=== PATIENT | male | born 1970 ===

== ENCOUNTER 2020-10-11 06:11 | Outpatient (REF) | payer OTHER, SELFPAY ==
[2020-10-11 07:45] LABS: MANUAL DIFF FLAG NO
[2020-10-11 07:52] LABS: Basophils Percent Auto 0.6 % (0-2); Eosinophils Absolute Auto 0.1 X10*3/uL (0.0-0.4); Eosinophils Percent Auto 2.5 % (0-4); Hematocrit 47.2 % (42-52); Hemoglobin 15.6 g/dl (14.0-18.0); Imm Gran Abs Auto 0.02 X10*3/uL (0.00-0.03); Imm Gran Pct Auto 0.4 % (0.0-0.4); Lymphocytes Percent Auto 38.6 % (20-40); Mean Corpuscular HGB Conc 33.1 g/dl (31.0-36.0); Mean Corpuscular Hemoglobin 30.4 pg (27.0-33.0); Mean Corpuscular Volume 91.8 fL (80-98); Mean Platelet Volume 10.4 fL (9.4-12.4); Monocytes Absolute Auto 0.5 X10*3/uL (0.1-1.2); Monocytes Percent Auto 8.8 % (2-11); Neutrophils Absolute Auto 2.5 X10*3/uL (2.0-8.3); Neutrophils Percent Auto 49.1 % (45-73); Platelet Count 214 X10*3/uL (160-400); Red Blood Count 5.14 X10*6/uL (4.60-5.80); Red Cell Distribution Width 12.9 % (11.0-16.0); White Blood Count 5.1 X10*3/uL (4.8-10.8)
[2020-10-11 08:22] LABS: Alanine Aminotransferase 39 U/L (0-40); Albumin Level 4.2 g/dL (3.5-5.0); Alkaline Phosphatase 62 U/L (39-117); Anion Gap 12 (12-20); Aspartate Amino Transferase 19 U/L (5-37); Bilirubin Total 0.7 mg/dL (0.0-1.0); Blood Urea Nitrogen 13 mg/dL (9-16); Calcium 8.8 mg/dL (8.4-10.2); Carbon Dioxide 25 mmol/L (22-29); Chloride 104 mmol/L (96-108); Cholesterol 179 mg/dL; Estimated Glomerular Filt Rate > 60; Glucose Fasting 243 mg/dL (60-99); HDL Cholesterol 42 mg/dL; LDL Cholesterol Calculated 113 mg/dl; Potassium 4.4 mmol/l (3.3-5.1); Sodium 137 mmol/L (135-145); Total Protein 6.5 g/dL (6.5-8.0); Triglycerides 120 mg/dL
[2020-10-11 08:42] LABS: T4 Thyroxine 5.1 ug/dL (4.5-12.0); Thyroid Stimulating Hormone 2.15 uIU/mL (0.32-4.0)
[2020-10-11 09:11] LABS: Vitamin B12 470 pg/mL (200-900)
[2020-10-11 10:10] LABS: Creatinine Urine 182.97 mg/dL; Microalbum/Creatinine Ratio Ur 11.4 ug/mg cr
== END 2020-10-11 06:12 | disposition home or self-care (01) ==
LOC: HO.LAB 06:11
PROVIDERS: Visit Provider Internal Medicine
DX: E11.65 Type 2 diabetes mellitus with hyperglycemia (principal); Z00.00 Encounter for general adult medical examination without abnormal findings; I10 Essential (primary) hypertension; E66.9 Obesity, unspecified; N52.9 Male erectile dysfunction, unspecified; F41.9 Anxiety disorder, unspecified; J45.909 Unspecified asthma, uncomplicated; E78.00 Pure hypercholesterolemia, unspecified
CPT/HCPCS: 36415; 80053; 80061; 82043; 82607; 82746; 84436; 84443; 85025

== ENCOUNTER 2020-11-02 15:49 | Outpatient (REF) | payer OTHER, SELFPAY ==
--- NOTE | 2020-11-02 15:57 | US_ITS ---
EXAMINATION: US RETROPERITONEAL LIMITED (RENAL ONLY) CLINICAL INFORMATION: Renal stone. COMPARISON: Previous CT of the abdomen and pelvis September 2018 TECHNIQUE: Grayscale and color imaging of the kidneys FINDINGS: RIGHT KIDNEY: 13.7 x 6 x 7.1 cm (SAG x AP x TRV). The kidney is normal in size, contour, and echogenicity. Renal cortical thickness is normal. No calculi or focal parenchymal lesions. No hydronephrosis. LEFT KIDNEY: 14.2 x 7.6 x 7.1 cm (SAG x AP x TRV). The kidney is normal in size, contour, and echogenicity. Renal cortical thickness is normal. No calculi or focal parenchymal lesions. No hydronephrosis. The liver is echogenic. US/US renal BI IMPRESSION: No stone seen by ultrasound.
== END 2020-11-02 15:50 | disposition home or self-care (01) ==
LOC: HO.US 15:49
PROVIDERS: PCP Internal Medicine; Visit Provider Internal Medicine
DX: N20.0 Calculus of kidney (principal)
CPT/HCPCS: 76775

== ENCOUNTER → 2020-12-13 07:44 | Outpatient (BNVA) | payer OTHER, SELFPAY | PROVIDERS: PCP Internal Medicine; Visit Provider Internal Medicine Endocrinology, Diabetes & Metabolism | DX: E11.65 Type 2 diabetes mellitus with hyperglycemia (principal); E11.42 Type 2 diabetes mellitus with diabetic polyneuropathy; E11.21 Type 2 diabetes mellitus with diabetic nephropathy; Z79.4 Long term (current) use of insulin; I10 Essential (primary) hypertension; E55.9 Vitamin D deficiency, unspecified; E78.5 Hyperlipidemia, unspecified; E66.9 Obesity, unspecified | CPT/HCPCS: 82947 ==

== ENCOUNTER 2021-02-16 10:45 | Emergency (ER) | payer OTHER, SELFPAY ==
--- NOTE | ~2021-02-16 | XR_ITS ---
EXAMINATION: XR CHEST CLINICAL INFORMATION: Lightheadedness. COMPARISON: None TECHNIQUE: Frontal view of the chest was obtained. FINDINGS: No significant abnormality is noted involving the heart, lungs, mediastinum, bony thorax or soft tissues. XR/XR chest 1V IMPRESSION: Unremarkable chest exam.
[2021-02-16 10:49] VITALS: BP 142/84; BP 149/93; PULSE 86; PULSE 92; RESP 16; TEMP 37.2; O2SAT 96; O2SAT 98; BMI 34.2
--- NOTE | 2021-02-16 11:31 | ECG_ITS ---
Test Reason : DIZZINESS Blood Pressure : / mmHG Vent. Rate : 075 BPM Atrial Rate : 075 BPM P-R Int : 154 ms QRS Dur : 102 ms QT Int : 394 ms P-R-T Axes : 006 -42 022 degrees QTc Int : 439 ms Normal sinus rhythm Left axis deviation Abnormal ECG When compared with ECG of 13-OCT-2017 19:12, No significant change was found Referred By: Mario Ruff Electronically Signed By:SHIRA STRICKLAND
--- NOTE | 2021-02-16 11:32 | ED.DIZZY ---
HPI - Dizziness General Chief Complaint: Dizziness Stated Complaint: lightheaded Time Seen by Provider: 02/16/21 11:30 Source: patient Mode of arrival: ambulatory Limitations: no limitations History of Present Illness HPI Narrative: 50 years old male came for evaluation lightheadedness. This is a 50-year-old male who walked into the emergency department yesterday patient had felt palpitation, lightheadedness no chest pain or shortness of breath, today patient has no palpitation feeling but lightheadedness still persist patient describes the lightheadedness as feeling spacey and woozy. Patient declined chest pain, shortness of breath, palpitation today, nausea, vomiting, or diarrhea. Related Data Home Medications Medication Instructions Recorded Confirmed albuterol sulfate 2.5 mg INHALATION Q4-6H PRN 10/14/20 12/13/20 aspirin 81 mg tablet,delayed 81 mg PO DAILY 10/14/20 12/13/20 release tadalafil 10 mg tablet 10 mg PO DAILY PRN 10/14/20 12/13/20 Previous Rx's Medication Instructions Recorded simvastatin 20 mg tablet 20 mg PO QPM #90 tab 10/14/20 cholecalciferol (vitamin D3) 25 25 mcg PO DAILY 30 Days #30 cap 12/13/20 mcg (1,000 unit) capsule dulaglutide 1.5 mg/0.5 mL 1.5 mg SUBCUT QWEEK 90 Days #6.5 ml 12/13/20 subcutaneous pen injector empagliflozin 12.5 mg-metformin ER 1 tab PO BID 90 Days #180 ea 12/13/20 1,000 mg tablet,extended rel 24 hr flash glucose sensor #7 ea 12/13/20 glipizide 10 mg tablet 10 mg PO DAILY 90 Days #90 tab 12/13/20 citalopram 40 mg tablet 40 mg PO DAILY #90 tab 01/24/21 fluticasone 250 mcg-salmeterol 50 1 inh INHALATION Q12H #60 ea 01/24/21 mcg/dose blistr powdr for inhalation lisinopril 5 mg tablet 5 mg PO DAILY #90 tab 01/24/21 albuterol sulfate 90 mcg/actuation 1 - 2 puff PO Q4H PRN #8.5 g 02/11/21 aerosol inhaler Allergies Allergy/AdvReac Type Severity Reaction Status Date / Time bee pollen [BEE STINGS] Allergy Unknown SWELLING Verified 02/16/21 12:09 WASPS Allergy Unknown SWELLING Uncoded 08/12/20 15:42 Review of Systems Review of Systems: All other systems are reviewed and are negative Constitutional: Reports as per HPI and Reports no additional constitutional complaints Eyes: Reports as per HPI and Reports no additional eye complaints Reports system reviewed and no additional complaints, except as documented Cardiovascular: Reports as per HPI and Reports no additional cardiovascular complaints Respiratory: Reports as per HPI and Reports no additional respiratory complaints Gastrointestinal: Reports as per HPI and Reports no additional gastrointestinal complaints Genitourinary: Reports no additional female genitourinary complaints Musculoskeletal: Reports no additional musculoskeletal complaints Skin/Breast: Reports system reviewed and no additional complaints, except as docu Psychiatric: Reports no additional psychiatric complaints Endocrine: Reports no additional endocrine complaints Hematologic/Lymphatic: Reports no additional hematologic/lymphatic complaints Allergic/Immunologic: Reports no additional allergic/immunologic complaints Reports system reviewed and no additional complaints, except as documented and Reports Abnormal speech present [facility] Past Medical History Medical History Anxiety and depression Asthma Carpal tunnel syndrome Diabetic nephropathy associated with type 2 diabetes mellitus Diabetic polyneuropathy associated with type 2 diabetes mellitus Diverticulitis Dyslipidemia Erectile dysfunction Fatty liver GERD (gastroesophageal reflux disease) Hypercholesterolemia Hypertension Irritable bowel syndrome Obesity (BMI 30-39.9) Renal calculi Type 2 diabetes mellitus with hyperglycemia Vitamin D deficiency Surgical History History of arthroscopy of left knee History of breast mammoplasty History of cataract surgery History of vasectomy Family History Family History Father Skin cancer Mother Breast cancer Mouth cancer Hypertension Maternal Aunt Lung cancer Brother In good health Son In good health Son In good health Daughter In good health Social History Social History Smoking Status: Never smoker Smoked in Last 30 Days: No Use of substances other than those prescribed or required for medical reasons: No Advance Directives: No Advance Directives Information Provided: No Physical Exam Vital Signs: Vital Signs: Last Vital Signs Temp 99.0 F 02/16/21 10:49 Pulse 87 02/16/21 12:05 Resp 18 02/16/21 12:08 BP 131/80 02/16/21 12:05 Pulse Ox 96 02/16/21 10:49 Body Mass Index 34.2 Vital signs have been reviewed as appeared to be correct. Blood pressure slightly elevated. Heart rate normal. Respiration rate normal. Temperature normal. Oxygen saturation normal. Appearance: Alert. Oriented X3. No acute distress. Head: Normal external exam. Normocephalic. Atraumatic. No Spangler signs noted. No raccoon eyes noted Eyes: PERRLA. EOMI. Conjunctiva and sclera normal. Eyelids normal. ENT: TM's Normal. Pharynx normal. Uvula midline. Moist mucous membranes. No trismus noted. No drooling noted. No muffled voice noted. Neck: Normal inspection. Neck supple. FROM. No adenopathy. Thyroid Normal. No meningeal signs. No neck mass noted. CVS: Normal heart rate and rhythm. Heart sound normal. No murmurs noted. Pulses normal throughout. Respiratory: No respiratory distress. Painless inspiration. Breath sounds normal. No wheezes/rales/rhonchi noted. Chest nontender. No accessory muscle usage noted or decreased air movement noted. Abdomen: Soft and nontender. Bowel sounds normal in all 4 quadrants. No distention noted. No organomegaly noted. No visible injury noted. Back: No CVA tenderness. Full range of motion noted. Skin: Skin warm and dry. Normal skin color. Normal skin turgor. No rashes/lesions/lacerations noted. Extremities: No lower extremity edema. Extremities exhibit normal range of motion. Extremities nontender. Neuro: Oriented X 3. No motor deficit. No sensory deficit. Reflexes normal. Course Course Course Narrative: Assessment and plan. 50 years old male otherwise healthy presented with yesterday feeling palpitation, today feels generalized weakness, patient has unremarkable labs, unremarkable EKG, unremarkable chest x-ray and COVID testing is negative. Patient already feels better after received IV hydration in the emergency department. Will discharge the patient to follow-up with PCP. [facility] - Dizziness Lab Data Attestation: I reviewed the patient's lab results. Result diagrams: 02/16/21 11:57 02/16/21 11:57 Labs: Lab Results 02/16/21 02/16/21 02/16/21 Range/Units 11:57 11:57 11:57 WBC 8.7 (4.8-10.8) X10*3/uL RBC 5.54 (4.60-5.80) X10*6/uL Hgb 17.0 (14.0-18.0) g/dl Hct 49.9 (42-52) % MCV 90.1 (80-98) fL MCH 30.7 (27.0-33.0) pg MCHC 34.1 (31.0-36.0) g/dl RDW 13.4 (11.0-16.0) % Plt Count 225 (160-400) X10*3/uL MPV 9.7 (9.4-12.4) fL Immature Gran % (Auto) 0.2 (0.0-0.4) % Neut % (Auto) 64.1 (45-73) % Lymph % (Auto) 29.3 (20-40) % Franklin % (Auto) 5.5 (2-11) % Eos % (Auto) 0.6 (0-4) % Baso % (Auto) 0.3 (0-2) % Lymph # (Auto) 2.6 (1.2-4.9) X10*3/uL Franklin # (Auto) 0.5 (0.1-1.2) X10*3/uL Eos # (Auto) 0.1 (0.0-0.4) X10*3/uL Baso # (Auto) 0.0 (0.0-0.2) X10*3/uL Abs Immat Gran (auto) 0.02 (0.00-0.03) X10*3/uL Absolute Neuts (auto) 5.6 (2.0-8.3) X10*3/uL Absolute Nucleated RBC 0.000 (0.0-0.012) X10*3/uL Nucleated RBC % (auto) 0.0 (0.0-0.2) /100WBC Sodium 139 (135-145) mmol/L Potassium 4.2 (3.3-5.1) mmol/L Chloride 103 (96-108) mmol/L Carbon Dioxide 24 (22-29) mmol/L Anion Gap 16 (12-20) BUN 13 (9-16) mg/dL Creatinine 0.90 (0.5-1.4) mg/dL Estim Creat Clear Calc 124.7 Estimated GFR > 60 Random Glucose 125 H (60-115) mg/dL Calcium 9.4 D (8.4-10.2) mg/dL Total Bilirubin 0.5 (0.0-1.0) mg/dL Direct Bilirubin 0.2 (0.0-0.5) mg/dL AST 26 (5-37) U/L ALT 34 (0-40) U/L Alkaline Phosphatase 62 (39-117) U/L Troponin I High Sens < 3.5 (<3.5-35.0) ng/L B-Natriuretic Peptide < 10 (<100) pg/mL Total Protein 7.2 (6.5-8.0) g/dL Albumin 4.8 (3.5-5.0) g/dL Lipase 35 (8-78) U/L Urine Color Urine Appearance Urine pH (5.0-8.0) Ur Specific Brunswick (1.005-1.025) Urine Protein (NEG-TRACE) MG/DL Urine Glucose (UA) (NEG) MG/DL Urine Ketones (NEG) MG/DL Urine Blood (NEG) Urine Nitrite (NEG) Ur Leukocyte Esterase (NEG) Urine RBC (0) /HPF Urine WBC (0-4) /HPF Ur Squamous Epith Cells /LPF Urine Bacteria /LPF COVID-19 (AARON) (Negative) COVID-19 Clin Com 02/16/21 02/16/21 Range/Units 11:57 11:57 WBC (4.8-10.8) X10*3/uL RBC (4.60-5.80) X10*6/uL Hgb (14.0-18.0) g/dl Hct (42-52) % MCV (80-98) fL MCH (27.0-33.0) pg MCHC (31.0-36.0) g/dl RDW (11.0-16.0) % Plt Count (160-400) X10*3/uL MPV (9.4-12.4) fL Immature Gran % (Auto) (0.0-0.4) % Neut % (Auto) (45-73) % Lymph % (Auto) (20-40) % Franklin % (Auto) (2-11) % Eos % (Auto) (0-4) % Baso % (Auto) (0-2) % Lymph # (Auto) (1.2-4.9) X10*3/uL Franklin # (Auto) (0.1-1.2) X10*3/uL Eos # (Auto) (0.0-0.4) X10*3/uL Baso # (Auto) (0.0-0.2) X10*3/uL Abs Immat Gran (auto) (0.00-0.03) X10*3/uL Absolute Neuts (auto) (2.0-8.3) X10*3/uL Absolute Nucleated RBC (0.0-0.012) X10*3/uL Nucleated RBC % (auto) (0.0-0.2) /100WBC Sodium (135-145) mmol/L Potassium (3.3-5.1) mmol/L Chloride (96-108) mmol/L Carbon Dioxide (22-29) mmol/L Anion Gap (12-20) BUN (9-16) mg/dL Creatinine (0.5-1.4) mg/dL Estim Creat Clear Calc Estimated GFR Random Glucose (60-115) mg/dL Calcium (8.4-10.2) mg/dL Total Bilirubin (0.0-1.0) mg/dL Direct Bilirubin (0.0-0.5) mg/dL AST (5-37) U/L ALT (0-40) U/L Alkaline Phosphatase (39-117) U/L Troponin I High Sens (<3.5-35.0) ng/L B-Natriuretic Peptide (<100) pg/mL Total Protein (6.5-8.0) g/dL Albumin (3.5-5.0) g/dL Lipase (8-78) U/L Urine Color YELLOW Urine Appearance CLEAR Urine pH 6.0 (5.0-8.0) Ur Specific Brunswick 1.010 (1.005-1.025) Urine Protein NEG (NEG-TRACE) MG/DL Urine Glucose (UA) >=1000 H (NEG) MG/DL Urine Ketones NEG (NEG) MG/DL Urine Blood NEG (NEG) Urine Nitrite NEG (NEG) Ur Leukocyte Esterase NEG (NEG) Urine RBC 0 (0) /HPF Urine WBC 0 (0-4) /HPF Ur Squamous Epith Cells NONE /LPF Urine Bacteria NONE /LPF COVID-19 ([facility]ARON) Negative (Negative) COVID-19 Clin Com See Note Imaging Data Chest x-ray: Radiologist's impression: Unremarkable chest x-ray. ECG Data Interpretation: Normal sinus rhythm at 75 beats per minute, left axis deviation, normal intervals, nonspecific T-wave flattening at lead III, and V6. Discharge Plan Discharge Clinical Impression: Heart palpitations Patient Disposition: Home, Self-Care Instructions: Heart Palpitations (ED) Prescriptions: No Action lisinopril 5 mg tablet 5 mg PO DAILY Qty: 90 RF: 0 citalopram 40 mg tablet 40 mg PO DAILY Qty: 90 RF: 1 fluticasone propion-salmeterol [Wixela Inhub] 250-50 mcg/dose blister with device 1 inh inhalation Q12H Qty: 60 RF: 11 albuterol sulfate 90 mcg/actuation HFA aerosol inhaler 1 - 2 puff PO Q4H PRN (Reason: for muscle spasm) Qty: 8.5 RF: 0 aspirin [Adult Aspirin Regimen] 81 mg tablet,delayed release (DR/EC) 81 mg PO DAILY RF: 0 albuterol sulfate 2.5 mg /3 mL (0.083 %) solution for nebulization 2.5 mg inhalation Q4-6H PRNRF: 0 tadalafil 10 mg tablet 10 mg PO DAILY PRNRF: 0 simvastatin 20 mg tablet 20 mg PO QPM Qty: 90 RF: 1 Trulicity 1.5 mg/0.5 mL pen injector 1.5 mg subcut QWEEK 90 Days Qty: 6.5 RF: 1 cholecalciferol (vitamin D3) 25 mcg (1,000 unit) capsule 25 mcg PO DAILY 30 Days Qty: 30 RF: 4 Synjardy XR 12.5-1,000 mg tablet, IR - ER, biphasic 24hr 1 tab PO BID 90 Days Qty: 180 RF: 1 (DME) flash glucose sensor Kit See Rx Instructions ea topical Q2W Qty: 7 RF: 1 glipizide 10 mg tablet 10 mg PO DAILY 90 Days Qty: 90 RF: 1 Referrals: Po,Beatris Lange MD [Primary Care Provider] - 2 days
[2021-02-16 12:01] VITALS: BP 114/60; PULSE 72
[2021-02-16 12:04] VITALS: BP 124/72; PULSE 74
[2021-02-16 12:04] LABS: MANUAL DIFF FLAG NO
[2021-02-16 12:05] VITALS: BP 131/80; PULSE 87
[2021-02-16 12:05] LABS: Basophils Percent Auto 0.3 % (0-2); Eosinophils Absolute Auto 0.1 X10*3/uL (0.0-0.4); Eosinophils Percent Auto 0.6 % (0-4); Hematocrit 49.9 % (42-52); Imm Gran Abs Auto 0.02 X10*3/uL (0.00-0.03); Imm Gran Pct Auto 0.2 % (0.0-0.4); Lymphocytes Absolute Auto 2.6 X10*3/uL (1.2-4.9); Lymphocytes Percent Auto 29.3 % (20-40); Mean Corpuscular HGB Conc 34.1 g/dl (31.0-36.0); Mean Corpuscular Hemoglobin 30.7 pg (27.0-33.0); Mean Corpuscular Volume 90.1 fL (80-98); Mean Platelet Volume 9.7 fL (9.4-12.4); Monocytes Absolute Auto 0.5 X10*3/uL (0.1-1.2); Monocytes Percent Auto 5.5 % (2-11); Neutrophils Absolute Auto 5.6 X10*3/uL (2.0-8.3); Neutrophils Percent Auto 64.1 % (45-73); Platelet Count 225 X10*3/uL (160-400); Red Blood Count 5.54 X10*6/uL (4.60-5.80); Red Cell Distribution Width 13.4 % (11.0-16.0); White Blood Count 8.7 X10*3/uL (4.8-10.8)
[2021-02-16 12:08] VITALS: RESP 18
[2021-02-16 12:09] LABS: Glucose Urine UA >=1000 MG/DL (NEG); Leukocyte Esterase Urine NEG (NEG); Nitrite Urine NEG (NEG); Urine Blood NEG (NEG); Urine Ketones NEG (NEG); Urine Protein NEG (NEG-TRACE)
[2021-02-16] MEDS: 0.9 % Sodium Chloride 1,000 ML 999 ML IVCONT (12:09)
[2021-02-16 12:11] LABS: Appearance Urine CLEAR; Color Urine YELLOW
[2021-02-16 12:18] LABS: RBC Urine 0 /HPF (0); WBC Urine 0 /HPF (0-4)
[2021-02-16 12:28] LABS: COVID-19 Test Negative (Negative)
[2021-02-16 12:35] LABS: Alanine Aminotransferase 34 U/L (0-40); Albumin Level 4.8 g/dL (3.5-5.0); Alkaline Phosphatase 62 U/L (39-117); Anion Gap 16 (12-20); Aspartate Amino Transferase 26 U/L (5-37); Bilirubin Direct 0.2 mg/dL (0.0-0.5); Bilirubin Total 0.5 mg/dL (0.0-1.0); Blood Urea Nitrogen 13 mg/dL (9-16); Calcium 9.4 mg/dL (8.4-10.2); Carbon Dioxide 24 mmol/L (22-29); Chloride 103 mmol/L (96-108); Creatinine Clr Calc Pharmacy 124.7; Estimated Glomerular Filt Rate > 60; Glucose Random 125 mg/dL (60-115); Lipase 35 U/L (8-78); Potassium 4.2 mmol/L (3.3-5.1); Sodium 139 mmol/L (135-145); Total Protein 7.2 g/dL (6.5-8.0)
[2021-02-16 12:37] LABS: B Type Natriuretic Peptide < 10 pg/mL (<100); Troponin-I High Sensitivity < 3.5 ng/L (<3.5-35.0)
== END 2021-02-16 13:29 | disposition home or self-care (01) ==
PROVIDERS: Emergency Provider Emergency Medicine; PCP Internal Medicine
DX: R00.2 Palpitations (principal); Z20.822 Contact with and (suspected) exposure to COVID-19; I10 Essential (primary) hypertension; E11.9 Type 2 diabetes mellitus without complications; E78.5 Hyperlipidemia, unspecified; K76.0 Fatty (change of) liver, not elsewhere classified; Z79.82 Long term (current) use of aspirin; Z79.899 Other long term (current) drug therapy
CPT/HCPCS: 36415; 71045; 80048; 80076; 81001; 83690; 83880; 84484; 85025; 87635; 93005; 96360; 99284

== ENCOUNTER → 2021-02-22 13:55 | Outpatient (BNVA) | payer OTHER, SELFPAY | PROVIDERS: PCP Internal Medicine; Visit Provider Urology ==

== ENCOUNTER → 2021-03-07 09:52 | Outpatient (BNVA) | payer OTHER, SELFPAY | PROVIDERS: PCP Internal Medicine; Visit Provider Physician Assistant | DX: S61.213A Laceration without foreign body of left middle finger without damage to nail, initial encounter (principal); S60.413A Abrasion of left middle finger, initial encounter; X58.XXXA Exposure to other specified factors, initial encounter | CPT/HCPCS: 73140; 90715; 99203 ==

== ENCOUNTER → 2021-03-09 10:56 | Outpatient (BNVA) | payer OTHER, SELFPAY | PROVIDERS: PCP Internal Medicine; Visit Provider Physician Assistant | DX: S61.213A Laceration without foreign body of left middle finger without damage to nail, initial encounter (principal); X58.XXXA Exposure to other specified factors, initial encounter | CPT/HCPCS: 99213 ==

== ENCOUNTER → 2021-03-15 13:06 | Outpatient (BNVA) | payer OTHER, SELFPAY | PROVIDERS: PCP Internal Medicine; Visit Provider Physician Assistant | DX: S61.213A Laceration without foreign body of left middle finger without damage to nail, initial encounter (principal); X58.XXXA Exposure to other specified factors, initial encounter | CPT/HCPCS: 99212; 99213 ==

== ENCOUNTER → 2021-04-11 07:32 | Outpatient (BNVA) | payer OTHER, SELFPAY | PROVIDERS: PCP Internal Medicine; Visit Provider Internal Medicine Endocrinology, Diabetes & Metabolism | DX: E11.65 Type 2 diabetes mellitus with hyperglycemia (principal); E11.42 Type 2 diabetes mellitus with diabetic polyneuropathy; E11.21 Type 2 diabetes mellitus with diabetic nephropathy; I10 Essential (primary) hypertension; E55.9 Vitamin D deficiency, unspecified; E78.5 Hyperlipidemia, unspecified; E66.9 Obesity, unspecified; Z79.4 Long term (current) use of insulin | CPT/HCPCS: 82947 ==

== ENCOUNTER 2021-09-21 11:55 | Outpatient (REF) | payer OTHER, SELFPAY ==
--- NOTE | ~2021-09-21 | XR_ITS ---
EXAMINATION: XR HIP, RIGHT CLINICAL INFORMATION: Pain in right hip COMPARISON: None TECHNIQUE: Two views of the right hip. FINDINGS: There is no fracture or dislocation. The femoral head articulates appropriately with its acetabulum. Severe joint space narrowing with near [id number] appearance superiorly. Subchondral sclerosis noted with osteophyte formation. The visualized right hemipelvis is intact. XR/XR hip RT min 2V IMPRESSION: Moderate to severe degenerative change of the right hip.
[2021-09-21 13:27] LABS: Creatinine Urine 60.54 mg/dL; Microalbumin Urine < 5.0 mg/L
== END 2021-09-21 11:56 | disposition home or self-care (01) ==
LOC: HO.LAB 11:55
PROVIDERS: Internal Medicine; Visit Provider Internal Medicine
DX: M25.551 Pain in right hip (principal); E11.65 Type 2 diabetes mellitus with hyperglycemia; R10.31 Right lower quadrant pain; E78.00 Pure hypercholesterolemia, unspecified; I10 Essential (primary) hypertension; Z79.4 Long term (current) use of insulin
CPT/HCPCS: 73502; 82043

== ENCOUNTER 2021-10-31 17:00 | Outpatient (RCR) | payer OTHER, SELFPAY ==
--- NOTE | 2021-10-06 09:58 | MHC.PT.EP ---
[facility] [place] [facility] [place] [facility] [place] Office [address] Tatianna Marcus [address] [phone] F: [phone] F: [phone] F: [phone] F: [phone] Physical Therapy Plan of Care Date of Evaluation: Date of Surgery: Diagnosis: Unilateral OA, R hip Pain in R hip Assessment: Pt is a 50yo M who presents to PT with R hip pain. He reports the pain was initially intermittent but now it is constant and radiates to his groin. He presents today with current impairments in pain, decreased hip ROM, decreased hip/glute strength, tight hamstrings, tight hip flexors, impaired body mechanics, and gait. His signs and symptoms may be consistent with R hip OA. He is limited functionally by bending, squatting, prolonged standing, walking, and marching. He is an excellent candidate for skilled PT services to address current impairments in order to facilitate return to OF. He will be seen for PT 2x/week for 4 weeks and will be reassessed at that time. 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 Manual therapy to restore motion and function. Therapeutic exercise to improve strength and flexibility. Neuromuscular re-education for posture and balance. Therapeutic activities to return to functional activities of daily living. Electronically signed by: Kely Araujo, PT, DPT Please sign and return to therapist. Thank you for your referral.
--- NOTE | 2021-11-21 17:23 | MHC.PT.DC ---
[facility] [place] [facility] [place] Office [place] Office [address] Tatianna Marcus [address] [phone] F: [phone] F: [phone] F: [phone] F: [phone] Physical Therapy Discharge Report Diagnosis: Unilateral OA, R hip Pain in R hip Date of Surgery: Date of Evaluation: 10/05/21 Date of Discharge: 11/21/21 Treatments to Date: 5 Cancellations to Date: 2 No Shows to Date: 1 Discharge Status: Improved Function Independent with HEP Discharge Summary: Pt was seen for skilled PT services from 10/05/21-10/31/21. Pt was making good progress towards his goals. He had a no-show and cancellation for his last 2 scheduled appointments. This PT called pt on 11/21/21 at 5:18pm and pt reported he was feeling better and did not want to schedule any additional PT visits at this time. Pt is being D/C from skilled PT services at this time. Pt current level of function unknown. Electronically signed by: Kely Araujo, PT, DPT Please sign and return to therapist. Thank you for your referral.
== END 2021-11-21 17:23 | disposition home or self-care (01) ==
LOC: HO.PT 17:00
PROVIDERS: PCP Internal Medicine; Visit Provider Internal Medicine
DX: M16.11 Unilateral primary osteoarthritis, right hip (principal); M25.551 Pain in right hip
CPT/HCPCS: 97110; 97140; 97161; 97530

== ENCOUNTER 2022-04-14 08:31 | Outpatient (REF) | payer BC, SELFPAY ==
[2022-04-14 08:52] LABS: MANUAL DIFF FLAG NO
[2022-04-14 09:13] LABS: Basophils Percent Auto 0.4 % (0-2); Eosinophils Absolute Auto 0.2 X10*3/uL (0.0-0.4); Eosinophils Percent Auto 3.3 % (0-4); Hematocrit 44.4 % (42.0-52.0); Imm Gran Abs Auto 0.01 X10*3/uL (0.00-0.03); Imm Gran Pct Auto 0.2 % (0.0-0.4); Lymphocytes Absolute Auto 1.9 X10*3/uL (1.2-4.9); Lymphocytes Percent Auto 37.5 % (20-40); Mean Corpuscular HGB Conc 33.8 g/dl (31.0-36.0); Mean Corpuscular Volume 91.7 fL (80.0-98.0); Monocytes Absolute Auto 0.4 X10*3/uL (0.1-1.2); Monocytes Percent Auto 8.2 % (2-11); Neutrophils Absolute Auto 2.6 x10*3/uL (2.0-8.3); Neutrophils Percent Auto 50.4 % (45-73); Platelet Count 174 X10*3/uL (160-400); Red Blood Count 4.84 X10*6/uL (4.60-5.80); Red Cell Distribution Width 13.2 % (11.0-16.0); White Blood Count 5.1 X10*3/uL (4.8-10.8)
[2022-04-14 09:44] LABS: Alanine Aminotransferase 72 U/L (0-40); Albumin Level 4.3 g/dL (3.5-5.0); Alkaline Phosphatase 61 U/L (39-117); Anion Gap 8 (12-20); Aspartate Amino Transferase 25 U/L (5-37); Bilirubin Total 0.7 mg/dL (0.0-1.0); Blood Urea Nitrogen 14 mg/dL (9-16); Calcium 9.5 mg/dL (8.4-10.2); Carbon Dioxide 32 mmol/L (22-29); Chloride 103 mmol/L (96-108); Cholesterol 155 mg/dL; Estimated Glomerular Filt Rate > 60; Glucose Random 201 mg/dL (60-115); HDL Cholesterol 44 mg/dL; LDL Cholesterol Calculated 89 mg/dl; Potassium 4.4 mmol/L (3.3-5.1); Sodium 139 mmol/L (135-145); Total Protein 6.6 g/dL (6.5-8.0); Triglycerides 113 mg/dL
[2022-04-14 09:59] LABS: Free T4 (Free Thyroxine) 0.81 ng/dL (0.71-1.85); Prostate Specific Antigen Scr 0.31 ng/mL (<0.05-4.0); Thyroid Stimulating Hormone 1.67 uIU/mL (0.32-4.0)
[2022-04-14 10:05] LABS: Folate 11.9 ng/mL (> or = 4.0); Vitamin B12 428 pg/mL (200-900)
== END 2022-04-14 08:32 | disposition home or self-care (01) ==
LOC: HO.LAB 08:31
PROVIDERS: Internal Medicine; PCP Internal Medicine; Visit Provider Internal Medicine
DX: Z12.5 Encounter for screening for malignant neoplasm of prostate (principal); E11.65 Type 2 diabetes mellitus with hyperglycemia; E78.00 Pure hypercholesterolemia, unspecified; I10 Essential (primary) hypertension; Z79.4 Long term (current) use of insulin
CPT/HCPCS: 36415; 80053; 80061; 82607; 82746; 84153; 84439; 84443; 85025

== ENCOUNTER 2022-07-24 12:18 | Outpatient (REF) | payer BC, SELFPAY ==
--- NOTE | ~2022-07-24 | XR_ITS ---
EXAMINATION: XR PELVIS CLINICAL INFORMATION: Pain in unspecified hip COMPARISON: 09/21/2021 TECHNIQUE: AP view of the pelvis. FINDINGS: Severe right, moderate to severe left joint space narrowing of the hips with a near [id number] appearance of the right hip. There is right greater than left acetabular sclerosis. There is osseous hypertrophy of the femoral head-neck junctions bilaterally, right greater than left. No hip or pelvic fracture seen. Degenerative changes of the lower lumbar spine are partially imaged. Pelvic phleboliths. XR/XR pelvis 1-2V IMPRESSION: Severe right, moderate to severe left joint space narrowing of the hips.
== END 2022-07-24 12:19 | disposition home or self-care (01) ==
LOC: HO.HOSX 12:18
PROVIDERS: Visit Provider Orthopaedic Surgery
DX: M25.551 Pain in right hip (principal); M25.552 Pain in left hip
CPT/HCPCS: 72170

== ENCOUNTER 2022-09-26 05:58 | Outpatient (REF) | payer BC, SELFPAY ==
--- NOTE | ~2022-09-26 | FL_ITS ---
EXAMINATION: XR FLUOROSCOPY WITH IMAGES CLINICAL INFORMATION: M16.11 - Unilateral primary osteoarthritis, right hip COMPARISON: Radiographs right hip 09/21/2021 TECHNIQUE: Fluoroscopy performed by Dr. Francisco Ortez. Fluoroscopy time: 0.5 minutes. Cumulative Dose: 16.1 mGy. DAP: 4.06 Gy-cm2. Images: 1. FINDINGS: There is a spinal needle with tip at the superior lateral aspect right hip. Intracapsular contrast is demonstrated. Again, there are degenerative changes with superior hip joint narrowing and mild subchondral sclerosis. FL/FL guidance in treatment room IMPRESSION: Fluoroscopy for pain management procedures.
== END 2022-09-26 05:59 | disposition home or self-care (01) ==
LOC: CF 05:58
PROVIDERS: Visit Provider Anesthesiology
DX: M16.11 Unilateral primary osteoarthritis, right hip (principal)
CPT/HCPCS: 20610; J3300

== ENCOUNTER 2022-11-09 10:33 | Outpatient (REF) | payer BC, SELFPAY | END 2022-11-09 10:34 | disposition home or self-care (01) | LOC: HO.SH 10:33 | PROVIDERS: Visit Provider Internal Medicine | DX: Z01.118 Encounter for examination of ears and hearing with other abnormal findings (principal); H90.3 Sensorineural hearing loss, bilateral | CPT/HCPCS: 92557 ==

== ENCOUNTER → 2022-11-24 12:32 | Outpatient (BNVA) | payer BC, SELFPAY | PROVIDERS: PCP Internal Medicine; Visit Provider Urology | DX: E11.69 Type 2 diabetes mellitus with other specified complication (principal) ==

== ENCOUNTER → 2023-01-01 14:25 | Outpatient (BNVA) | payer BC, SELFPAY | PROVIDERS: PCP Internal Medicine; Visit Provider Orthopaedic Surgery | DX: Z13.89 Encounter for screening for other disorder (principal) ==

== ENCOUNTER 2023-01-05 09:07 | Day surgery (SDC) | payer BC, SELFPAY ==
[2023-01-05 09:38] VITALS: BMI 36.9
[2023-01-05 09:46] VITALS: BP 126/82; PULSE 72; RESP 16; TEMP 36.1; O2SAT 96
--- NOTE | 2023-01-05 09:52 | P.CONAN_ITS ---
HPI - Anesthesia Eval Consult details Narrative: 52 yo male patient for colonoscopy [facility] Active Problems Active Problems: All Active Problems (Updated 11/24/22 @ 15:22 by Gigi Gregory MD) Erectile dysfunction associated with type 2 diabetes mellitus (Acute) Guaiac + stool (Acute) GERD (gastroesophageal reflux disease) (Acute) Hearing deficit (Acute) Annual physical exam (Acute) Colon cancer screening (Acute) Arthritis of left hip (Acute) Osteoarthritis of right hip (Acute) Gastroenteritis (Acute) Degenerative joint disease of right hip (Acute) Right groin pain (Acute) Right hip pain (Acute) Hearing impairment (Acute) Generalized anxiety disorder (Acute) Annual physical exam (Acute) Colon cancer screening (Acute) Diabetic polyneuropathy associated with type 2 diabetes mellitus (Acute) Diabetic nephropathy associated with type 2 diabetes mellitus (Acute) Renal calculi (Acute) Right groin pain (Acute) Carpal tunnel syndrome (Acute) Erectile dysfunction (Acute) Obesity (BMI 30-39.9) (Acute) Hypertension (Acute) Asthma (Acute) Hypercholesterolemia (Acute) Vitamin D deficiency (Acute) Type 2 diabetes mellitus with hyperglycemia (Acute) Denies RENÉ Past Medical History Medical History Asthma Carpal tunnel syndrome Diabetic nephropathy associated with type 2 diabetes mellitus Diabetic polyneuropathy associated with type 2 diabetes mellitus Diverticulitis Erectile dysfunction Fatty liver GERD (gastroesophageal reflux disease) Hypercholesterolemia Hypertension Irritable bowel syndrome Obesity (BMI 30-39.9) Renal calculi Type 2 diabetes mellitus with hyperglycemia Vitamin D deficiency Family History Family History Father Skin cancer Mother Breast cancer Mouth cancer Hypertension Maternal Aunt Lung cancer Brother In good health Son In good health Son In good health Daughter In good health Maternal Grandfather Myocardial infarct Family history of problems with anesthesia: No Surgical History Surgical History History of arthroscopy of left knee History of breast mammoplasty History of cataract surgery History of vasectomy History of Problems with Anesthesia: No Social History Social History Housing: House Alcohol intake: current Alcohol intake frequency: a few times a month Patient Tobacco Use Status: Current someday Tobacco user Tobacco use type: Cigarette Years Smoked: stopped 2013 e-Cigarette/Vaping Use: Never Used Second Hand Smoke Exposure: Yes Use of substances other than those prescribed or required for medical reasons: No Are you DNR?: No Advance Directives: No Advance Directives Information Provided: Yes service: No Current occupational status: employed 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 Current occupational exposures/hazards: No Cognitive needs: No Hearing needs: No Vision needs: No Meds Allergies Allergy/AdvReac Type Severity Reaction Status Date / Time bee pollen [BEE STINGS] Allergy Unknown SWELLING Verified 11/24/22 12:33 WASPS Allergy Unknown SWELLING Uncoded 11/24/22 12:33 Active Medications: Current Medications Lactated Ringer's (Lr) 1,000 mls @ 50 mls/hr IVCONT .Q20H MADELEINE Home Medications Medication Instructions Recorded Confirmed Last Taken Type albuterol sulfate 2.5 mg/3 mL 2.5 mg inhalation Q4-6H PRN 10/14/20 01/05/23 Unknown History (0.083 %) solution for nebulization Shortness Of Breath Exam Exam Date and Time: January 05, 2023 0952 Height,Weight and Vital Signs: Height 5 ft 11 in Weight 120.202 kg Vital Signs Temp Pulse Resp BP Pulse Ox O2 Del Method 01/05/23 09:46 97.0 F 72 16 126/82 96 Room Air Pertinent Lab Results Pertinent Lab Results: Lab Results 01/05/23 Range/Units 10:02 POC Glucose 214 H (60-115) mg/dL Airway Mallampati Class: II TM Dist: >3cm Neck ROM: Full Loose/Missing/Broken Teeth: No Heart: RRR Lungs: CTAB Assessment and Plan Assessment Anesthesia Assessment: Anesthesia Plan Discussed and Chart Reviewed Final Anesthetic Review Family History of Problems with Anesthesia: No History of Problems with Anesthesia: No NPO: Yes ASA Class: II Final Preanesthetic Review: No Changes in Pt Med Stat, Meds/Allgs Chart Reviewed, Consent Obtained/Reviewed and Anes Risks/Benef Reviewed Patient Risk: Intermediate Procedure Risk: Low Assessment/Block/Sedation in SS: Assess/Block/Sedation-SS Anesthetic Plan Anesthetic Plan: MAC: Disposition: Standard PACU
[2023-01-05] MEDS: Lactated Ringers 1,000 ML 50 ML IVCONT (10:04)
[2023-01-05 10:16] LABS: Glucose, Whole Blood 214 mg/dL (60-115)
--- NOTE | 2023-01-05 10:24 | MHC.SHP ---
Pre-Procedural Eval Section A Date of Service: 01/05/23 The patient is an INPATIENT: No Changes since office visit: No Cold of Flu in the past 2 weeks, No New Medical Problems, No Changes in Medication and No Patient answered all questions The History & Physical has been completed within 30 days and I have reviewed it.: Yes Section B Chief Complaint: Encounter for screening for malignant neoplasm of Allergies: Allergies Allergy/AdvReac Type Severity Reaction Status Date / Time bee pollen [BEE STINGS] Allergy Unknown SWELLING Verified 11/24/22 12:33 WASPS Allergy Unknown SWELLING Uncoded 11/24/22 12:33 Plan I have reviewed the history and physical and performed a pertinent physical examination on my patient. No changes have occurred unless specified. Time Spent With Patient Time: Total time managing care of this patient today ____ minutes.
--- NOTE | 2023-01-05 11:05 | PM.OP ---
Brief Operative Note Date of Service: 01/05/23 Pre-op diagnosis: screening Post-op diagnosis: same Procedure: colonoscopy Surgeon: Harris Patel Anesthesia: MAC Was an Tobacco Blender used for this Procedure?: No Estimated blood loss (mL): 0 Pathology: other Condition: stable Disposition: PACU
[2023-01-05 11:06] VITALS: BP 108/57; PULSE 71; RESP 12; TEMP 36.1; O2SAT 98
[2023-01-05 11:21] VITALS: BP 118/62; PULSE 90; RESP 16; O2SAT 96
[2023-01-05 11:36] VITALS: BP 122/87; PULSE 73; RESP 18; TEMP 36.7; O2SAT 96
--- NOTE | 2023-01-05 11:41 | OP_ITS ---
SURGEON: Harris Patel MD INDICATIONS: Colon cancer screening. PREOPERATIVE DIAGNOSIS: POSTOPERATIVE DIAGNOSIS: PROCEDURE PERFORMED: Date: 01/05/23. A history and physical was performed. The risks and benefits of the procedure were explained to the patient. Informed consent was obtained. The patient was placed in the left lateral decubitus position. A digital rectal exam was performed and was found to be normal. The Olympus pediatric video colonoscope was introduced into the rectum and advanced to the cecum without difficulty. The cecum was identified by transillumination, palpation, and identification of ileocecal valve. Examination was performed and the scope was removed. He tolerated the procedure well and was returned to the recovery room in stable condition. ESTIMATED BLOOD LOSS: COMPLICATIONS: ANESTHESIA: Monitored anesthesia care. ASSISTANTS: SPECIMENS: PROCEDURE: Colonoscopy to the terminal ileum with snare polypectomy and biopsy. FINDINGS: The terminal ileum was examined and appeared normal. The visualized colonic mucosa was normal. Multiple polyps were present. The largest measured 10 mm and 2 of these were removed at 70 and 40 cm with a snare. Other polyps less than 10 mm were removed in the right colon at 30 cm and in the rectum. The right colon polyp was removed with biopsy forceps. No other polyps were identified. There was mild sigmoid diverticulosis. Retroflexed examination showed internal hemorrhoids. IMPRESSION: Colon polyps. RECOMMENDATION: Follow up the biopsy results. MD SUJATHA Hastings/CHELSY / [id number] MTDD
== END 2023-01-05 12:05 | disposition home or self-care (01) ==
PROVIDERS: PCP Internal Medicine; Visit Provider Internal Medicine Gastroenterology
PROC: 0DJD8ZZ Inspection of Lower Intestinal Tract, Via Natural or Artificial Opening Endoscopic (ICD-10-PCS; CPT 45378; principal; 2023-01-05 10:20)
DX: Z12.11 Encounter for screening for malignant neoplasm of colon (principal); D12.2 Benign neoplasm of ascending colon; D12.4 Benign neoplasm of descending colon; D12.5 Benign neoplasm of sigmoid colon; D12.8 Benign neoplasm of rectum; K57.30 Diverticulosis of large intestine without perforation or abscess without bleeding; K64.8 Other hemorrhoids; K76.0 Fatty (change of) liver, not elsewhere classified; K21.9 Gastro-esophageal reflux disease without esophagitis; I10 Essential (primary) hypertension; E78.00 Pure hypercholesterolemia, unspecified; J45.909 Unspecified asthma, uncomplicated; N20.0 Calculus of kidney; E55.9 Vitamin D deficiency, unspecified; E11.21 Type 2 diabetes mellitus with diabetic nephropathy; E11.40 Type 2 diabetes mellitus with diabetic neuropathy, unspecified; Z79.85 Long-term (current) use of injectable non-insulin antidiabetic drugs; Z79.899 Other long term (current) drug therapy; F17.210 Nicotine dependence, cigarettes, uncomplicated
CPT/HCPCS: 45385; 45380; 82947; 88305

== ENCOUNTER 2023-01-05 18:04 | Emergency (ER) | payer BC, SELFPAY ==
--- NOTE | ~2023-01-05 | CT_ITS ---
EXAMINATION: CT ABDOMEN AND PELVIS WITHOUT AND WITH CONTRAST [GI bleeding study] CLINICAL INFORMATION: Rectal bleeding status post colonoscopy. COMPARISON: None. TECHNIQUE: Multidetector volumetric imaging was performed from the superior aspect of the liver through the pubic symphysis before and after the administration of 85 mL Omnipaque 350 intravenous contrast. Postcontrast images acquired during the portal venous and equilibrium phases. Coronal and sagittal reformats created on an workstation are reviewed. This CT examination was performed using dose optimization techniques as appropriate, variously including the following: *Automated exposure control *Adjustment of mA and/or kV according to patient size (this includes techniques or standardized protocols for targeted exams where dose is matched to indication/reason for exam; i.e. extremities or head) *Use of iterative reconstruction technique FINDINGS: LUNG BASES: The visualized lung bases are unremarkable. LIVER, GALLBLADDER, AND BILIARY TREE: The liver is normal in size, shape, and attenuation. No focal hepatic lesion or biliary ductal dilatation is present. The gallbladder is unremarkable with no evidence of radiopaque gallstones, gallbladder wall thickening, or obvious pericholecystic inflammatory changes. PANCREAS: Unremarkable. SPLEEN: Unremarkable. ADRENAL GLANDS: Unremarkable. KIDNEYS AND URETERS: The kidneys are normal in size, shape, and attenuation. Punctate nonobstructive calculus, right mid kidney. No hydronephrosis or hydroureter. No perinephric stranding. BLADDER: Unremarkable. GASTROINTESTINAL TRACT: No source of active gastrointestinal bleeding is identified. Left colonic diverticulosis. No evidence of diverticulitis. Normal appendix. Stomach and small bowel unremarkable. ABDOMINAL WALL: No significant hernia is appreciated. LYMPH NODES: Normal. VASCULAR: Unremarkable. PELVIC VISCERA: Unremarkable. OSSEOUS STRUCTURES: No acute or suspicious osseous abnormalities. CT/CT gi bleed abd pel wo/w IVcon IMPRESSION: * No source of active gastrointestinal bleeding is identified. * Left colonic diverticulosis without evidence of diverticulitis. * Punctate nonobstructive calculus, right mid kidney.
--- NOTE | ~2023-01-05 | XR_ITS ---
EXAMINATION: CHEST 2 VIEWS CLINICAL INFORMATION: ? gi bleed s/p colonoscopy . COMPARISON: 02/16/2021. TECHNIQUE: PA and lateral views of the chest obtained. FINDINGS: The lungs are well expanded. No focal infiltrate, effusion, edema, or pneumothorax. Cardiac and mediastinal silhouettes are within normal limits for technique. No acute bony abnormality seen XR/XR chest 2V IMPRESSION: No evidence of acute disease
[2023-01-05 19:30] VITALS: BP 114/91; PULSE 85; RESP 20; TEMP 36.1; O2SAT 98; BMI 36.9
--- NOTE | 2023-01-05 19:30 | ECG_ITS ---
Test Reason : GI BLEED Blood Pressure : / mmHG Vent. Rate : 083 BPM Atrial Rate : 083 BPM P-R Int : 150 ms QRS Dur : 096 ms QT Int : 364 ms P-R-T Axes : 030 -32 033 degrees QTc Int : 427 ms Normal sinus rhythm Left axis deviation Abnormal ECG When compared to the previous EKG of No significant changes seen Referred By: Laverne Mcneill Electronically Signed By:JEFF MAGALLANES MD
--- NOTE | 2023-01-05 19:30 | ED.GIBLEED ---
HPI - GI Bleed General Chief complaint: GI Bleed <LYNN Rosa - Last Filed: 01/05/23 19:33> Stated complaint: Still bleeding after colonoscopy this am <LYNN Rosa - Last Filed: 01/05/23 19:33> Time Seen by Provider: 01/06/23 01:45 <LYNN Rosa - Last Filed: 01/05/23 19:33> Source: patient <Tevin Soria MD - Last Filed: 01/06/23 02:27> Mode of arrival: ambulatory <Tevin Soria MD - Last Filed: 01/06/23 02:27> Limitations: no limitations <Tevin Soria MD - Last Filed: 01/06/23 02:27> History of Present Illness HPI Narrative: 52-year-old male presents with acute lower GI bleed. Patient had colonoscopy earlier today with biopsies. Family 6 biopsies were taken. He got home he started to have bright red blood per rectum. He denied any abdominal pain, lightheadedness, palpitations. The bleeding continued for approximately 2 hours when he was referred to the emergency department for evaluation. Patient reports bleeding, ?like a stuffed pig. ? Patient denies any abdominal pain, fevers, chills. He is currently not on any blood thinning medications. He did have a bagel prior to arrival. <Tevin Soria MD - Last Filed: 01/06/23 02:27> Related Data Home medications: Home Medications Medication Instructions Recorded Confirmed albuterol sulfate 2.5 mg/3 mL 2.5 mg inhalation Q4-6H PRN 10/14/20 01/05/23 (0.083 %) solution for nebulization Shortness Of Breath Previous Rx's Medication Instructions Recorded cholecalciferol (vitamin D3) 25 25 mcg PO DAILY 30 days #30 caps 12/13/20 mcg (1,000 unit) capsule flash glucose sensor #7 ea 12/13/20 empagliflozin 12.5 mg-metformin ER 1 tab PO BID 90 days #180 ea 04/07/22 1,000 mg tablet,extended rel 24 hr (Synjardy XR) epinephrine 0.3 mg/0.3 mL 0.3 mg (0.3 mL) IM Q4H PRN 05/15/22 injection, auto-injector (EpiPen anaphylaxis #2 ea 2-Joni) lisinopril 5 mg tablet 5 mg PO DAILY 90 days #90 tabs 07/18/22 sildenafil 100 mg tablet 100 mg PO ONCE PRN sexual activity 08/22/22 30 days #30 tabs alprazolam 0.25 mg tablet 0.25 mg PO BID PRN anxiety #14 tabs 09/11/22 flash glucose scanning reader #1 ea 09/11/22 (FreeStyle Javed 2 [place]) flash glucose sensor (FreeStyle #6 kits 09/11/22 Javed 2 Sensor kit) albuterol sulfate 90 mcg/actuation 1 - 2 puff PO Q4H PRN bronchospasm 10/03/22 aerosol inhaler #8.5 grams simvastatin 20 mg tablet 20 mg PO QPM #90 tabs 11/02/22 citalopram 40 mg tablet 40 mg PO DAILY #90 tabs 11/09/22 glipizide 5 mg tablet 5 mg PO BID 30 days #60 tabs 11/16/22 tadalafil 10 mg tablet 10 mg PO DAILY sexual activity 90 11/24/22 days #90 tabs dulaglutide 1.5 mg/0.5 mL 1.5 mg (0.5 mL) subcut QWEEK 90 12/20/22 subcutaneous pen injector days #6.5 mL <LYNN Rosa - Last Filed: 01/05/23 19:33> Allergies/Adverse reactions: Allergies Allergy/AdvReac Type Severity Reaction Status Date / Time bee pollen [BEE STINGS] Allergy Unknown SWELLING Verified 01/05/23 19:35 WASPS Allergy Unknown SWELLING Uncoded 11/24/22 12:33 <LYNN Rosa - Last Filed: 01/05/23 19:33> Review of Systems Review of Systems: CONSTITUTIONAL: Denies weight loss, fever and chills. HEENT: Denies changes in vision and hearing. RESPIRATORY: Denies SOB and cough. CV: Denies palpitations no CP. GI: Denies abdominal pain, nausea, vomiting and diarrhea. : Denies dysuria and urinary frequency. MSK: Denies myalgia and joint pain. SKIN: Denies rash and pruritus. NEUROLOGICAL: Denies headache and syncope. PSYCHIATRIC: Denies recent changes in mood. Denies anxiety and depression. All other ROS are negative unless in HPI <Tevin Soria MD - Last Filed: 01/06/23 02:27> [facility] Past Medical History Medical History: Medical History Asthma Carpal tunnel syndrome Diabetic nephropathy associated with type 2 diabetes mellitus Diabetic polyneuropathy associated with type 2 diabetes mellitus Diverticulitis Erectile dysfunction Fatty liver GERD (gastroesophageal reflux disease) Hypercholesterolemia Hypertension Irritable bowel syndrome Obesity (BMI 30-39.9) Renal calculi Type 2 diabetes mellitus with hyperglycemia Vitamin D deficiency <LYNN Rosa - Last Filed: 01/05/23 19:33> Surgical History: Surgical History History of arthroscopy of left knee History of breast mammoplasty History of cataract surgery History of vasectomy <LYNN Rosa - Last Filed: 01/05/23 19:33> Family History Family History: Family History Father Skin cancer Mother Breast cancer Mouth cancer Hypertension Maternal Aunt Lung cancer Brother In good health Son In good health Son In good health Daughter In good health Maternal Grandfather Myocardial infarct <LYNN Rosa - Last Filed: 01/05/23 19:33> Social History Social History: Social History Housing: House Alcohol intake: current Alcohol intake frequency: a few times a month Patient Tobacco Use Status: Current someday Tobacco user Tobacco use type: Cigarette Years Smoked: stopped 2013 e-Cigarette/Vaping Use: Never Used Second Hand Smoke Exposure: Yes Advance Directives: No Advance Directives Information Provided: No service: No Current occupational status: employed Current occupation: [employer] Current occupational exposures/hazards: No Cognitive needs: No Hearing needs: No Vision needs: No <LYNN Rosa - Last Filed: 01/05/23 19:33> Physical Exam Vital Signs: Vital Signs: Last Vital Signs Temp 98.2 F 01/06/23 02:16 Pulse 78 01/06/23 02:16 Resp 16 01/06/23 02:16 BP 119/68 01/06/23 02:16 Pulse Ox 99 01/06/23 02:16 O2 Del Method 01/06/23 02:16 BMI result Body Mass Index 36.9 <LYNN Rosa - Last Filed: 01/05/23 19:33> Vital Signs: Last Vital Signs Temp 98.2 F 01/06/23 02:16 Pulse 78 01/06/23 02:16 Resp 16 01/06/23 02:16 BP 119/68 01/06/23 02:16 Pulse Ox 99 01/06/23 02:16 O2 Del Method 01/06/23 02:16 BMI result Body Mass Index 36.9 GEN: Well developed, no acute distress, alert, oriented HEENT: Normocephalic, atraumatic, normal external ears, nose appears normal, no oropharyngeal edema or exudates Eyes: Normal to appearance Neck: Supple, no lymphadenopathy Respiratory: Talks in complete sentences, no respiratory distress, clear to auscultation bilaterally Cardiovascular: Regular rate and rhythm, no murmurs rubs or gallops Abdomen: Soft, nontender, nondistended, no guarding, no rebound Back: No CVA tenderness Extremities: No clubbing cyanosis or edema Neurologic: No focal neurologic deficits, cranial nerves 2-12 intact, strength is 5/5 bilaterally, gait normal Skin: No rash <Tevin Soria MD - Last Filed: 01/06/23 02:27> Course Course Course Narrative: RME-19:30PM - 52yoM who had a colonoscopy today by Dr. Patel who is presenting with complaints of GI bleed that started shortly after his colonoscopy. Reports he has had 8-10 dark red blood stools. Reports associated nausea. Reports he had multiple polyps removed. He called Dr. Patel's office and they told him to come here for further evaluation treatment. Denies any dizziness, headaches, chest pain or shortness of breath, abdominal pain or any other symptoms complaints or concerns at this time. Denies being on blood thinners. Plan: Will obtain labs, EKG, chest x-ray, COVID/RSV/flu swab, stool occult and GI bleed CT scan protocol. Patient will be sent back to the waiting room to be evaluated in the ED. <LYNN Rosa - Last Filed: 01/05/23 19:33> Reevaluation(s) Reevaluation #1: The workup is complete. Patient's CBC is normal. CT scan did not reveal any evidence of perforation. He is asymptomatic for potential anemia. He has had no active bleeding since in the emergency department. Patient will be discharged at this time. I recommended clear liquid diet over the next 12-24 hours. For worsening bleeding, lightheadedness, palpitations or other symptoms, patient is recommended to return back to the emergency department <Tevin Soria MD - Last Filed: 01/06/23 02:27> Time: 02:25 <Tevin Soria MD - Last Filed: 01/06/23 02:27> Medications Administered Discontinued Medications Generic Name Dose Route Start Last Admin Trade Name Freq PRN Reason Stop Dose Admin Iohexol 85 ml 01/06/23 01:25 01/06/23 01:26 Iohexol 350 Mg/Ml 100 Ml Infus..Btl IV 01/06/23 01:26 85 ml ONCE ONE Administration <LYNN Rosa - Last Filed: 01/05/23 19:33> Medications Administered Discontinued Medications Generic Name Dose Route Start Last Admin Trade Name Freq PRN Reason Stop Dose Admin Iohexol 85 ml 01/06/23 01:25 01/06/23 01:26 Iohexol 350 Mg/Ml 100 Ml Infus..Btl IV 01/06/23 01:26 85 ml ONCE ONE Administration <Tevin Soria MD - Last Filed: 01/06/23 02:27> Medical Decision Making Medical Decision Making [facility] Narrative: Patient presents with lower GI bleed from colonoscopy. His examination was benign without rebound or guarding. Doubt perforation. Will check CBC to make sure patient is not anemic. Will follow up regarding symptoms to see if he becomes symptomatic anemia. <Tevin Soria MD - Last Filed: 01/06/23 02:27> Differential Diagnosis Differential Diagnoses: The differential diagnosis associated with the presentation includes (Lower GI bleed, hemorrhoid, diverticular bleeding, biopsy site bleeding, anemia) <Tevin Soria MD - Last Filed: 01/06/23 02:27> Admission/Observation Consideration of admission/observation: Escalation of care including admission/observation considered <Tevin Soria MD - Last Filed: 01/06/23 02:27> Lab Data [facility] Lab Attestation statement: I reviewed the patient's lab results. <Tevin Soria MD - Last Filed: 01/06/23 02:27> Result Diagrams: 01/05/23 19:57 01/05/23 19:57 <LYNN Rosa - Last Filed: 01/05/23 19:33> Labs: Lab Results 01/05/23 01/05/23 01/05/23 Range/Units 19:57 19:57 19:57 WBC 6.1 (4.8-10.8) X10*3/uL RBC 4.88 (4.60-5.80) X10*6/uL Hgb 15.0 (14.0-18.0) g/dl Hct 44.0 (42.0-52.0) % MCV 90.2 (80.0-98.0) fL MCH 30.7 (27.0-33.0) pg MCHC 34.1 (31.0-36.0) g/dl RDW 13.0 (11.0-16.0) % Plt Count 223 D (160-400) X10*3/uL MPV 9.8 (9.4-12.4) fL Immature Gran % (Auto) 0.2 (0.0-0.4) % Neut % (Auto) 58.7 (45-73) % Lymph % (Auto) 33.6 (20-40) % [place] % (Auto) 5.8 (2-11) % Eos % (Auto) 1.2 (0-4) % Baso % (Auto) 0.5 (0-2) % Lymph # (Auto) 2.0 (1.2-4.9) X10*3/uL [place] # (Auto) 0.4 (0.1-1.2) X10*3/uL Eos # (Auto) 0.1 (0.0-0.4) X10*3/uL Baso # (Auto) 0.0 (0.0-0.2) X10*3/uL Abs Immat Gran (auto) 0.01 (0.00-0.03) X10*3/uL Absolute Neuts (auto) 3.6 (2.0-8.3) x10*3/uL Absolute Nucleated RBC 0.000 (0.0-0.012) X10*3/uL Nucleated RBC % (auto) 0.0 (0.0-0.2) /100WBC PT 11.3 (10.0-13.1) SEC INR 1.0 (0.9-1.1) Sodium 136 (135-145) mmol/L Potassium 4.2 (3.3-5.1) mmol/L Chloride 102 (96-108) mmol/L Carbon Dioxide 24 (22-29) mmol/L Anion Gap 14 (12-20) BUN 9 (9-16) mg/dL Creatinine 1.02 (0.5-1.4) mg/dL Estim Creat Clear Calc 111.7 Estimated GFR > 60 POC Glucose (60-115) mg/dL Random Glucose 415 H* (60-115) mg/dL Calcium 9.0 (8.4-10.2) mg/dL Magnesium 2.0 (1.6-2.6) mg/dL Total Bilirubin 0.7 (0.0-1.0) mg/dL AST 22 (5-37) U/L ALT 43 H (0-40) U/L Alkaline Phosphatase 57 (39-117) U/L Total Protein 6.0 L (6.5-8.0) g/dL Albumin 4.0 (3.5-5.0) g/dL Influenza Type A (PCR) (Negative) Influenza Type B (PCR) (Negative) RSV RNA Qual (PCR) (Negative) SARS-CoV-2 RNA (RT-PCR) (Negative) Blood Type Antibody Screen 01/05/23 01/05/23 01/06/23 Range/Units 19:57 20:03 01:40 WBC (4.8-10.8) X10*3/uL RBC (4.60-5.80) X10*6/uL Hgb (14.0-18.0) g/dl Hct (42.0-52.0) % MCV (80.0-98.0) fL MCH (27.0-33.0) pg MCHC (31.0-36.0) g/dl RDW (11.0-16.0) % Plt Count (160-400) X10*3/uL MPV (9.4-12.4) fL Immature Gran % (Auto) (0.0-0.4) % Neut % (Auto) (45-73) % Lymph % (Auto) (20-40) % [place] % (Auto) (2-11) % Eos % (Auto) (0-4) % Baso % (Auto) (0-2) % Lymph # (Auto) (1.2-4.9) X10*3/uL [place] # (Auto) (0.1-1.2) X10*3/uL Eos # (Auto) (0.0-0.4) X10*3/uL Baso # (Auto) (0.0-0.2) X10*3/uL Abs Immat Gran (auto) (0.00-0.03) X10*3/uL Absolute Neuts (auto) (2.0-8.3) x10*3/uL Absolute Nucleated RBC (0.0-0.012) X10*3/uL Nucleated RBC % (auto) (0.0-0.2) /100WBC PT (10.0-13.1) SEC INR (0.9-1.1) Sodium (135-145) mmol/L Potassium (3.3-5.1) mmol/L Chloride (96-108) mmol/L Carbon Dioxide (22-29) mmol/L Anion Gap (12-20) BUN (9-16) mg/dL Creatinine (0.5-1.4) mg/dL Estim Creat Clear Calc Estimated GFR POC Glucose 297 H (60-115) mg/dL Random Glucose (60-115) mg/dL Calcium (8.4-10.2) mg/dL Magnesium (1.6-2.6) mg/dL Total Bilirubin (0.0-1.0) mg/dL AST (5-37) U/L ALT (0-40) U/L Alkaline Phosphatase (39-117) U/L Total Protein (6.5-8.0) g/dL Albumin (3.5-5.0) g/dL Influenza Type A (PCR) NEGATIVE (Negative) Influenza Type B (PCR) NEGATIVE (Negative) RSV RNA Qual (PCR) NEGATIVE (Negative) SARS-CoV-2 RNA (RT-PCR) NEGATIVE (Negative) Blood Type O Positive Antibody Screen NEGATIVE <LYNN Rosa - Last Filed: 01/05/23 19:33> Lab Results 01/05/23 01/05/23 01/05/23 Range/Units 19:57 19:57 19:57 WBC 6.1 (4.8-10.8) X10*3/uL RBC 4.88 (4.60-5.80) X10*6/uL Hgb 15.0 (14.0-18.0) g/dl Hct 44.0 (42.0-52.0) % MCV 90.2 (80.0-98.0) fL MCH 30.7 (27.0-33.0) pg MCHC 34.1 (31.0-36.0) g/dl RDW 13.0 (11.0-16.0) % Plt Count 223 D (160-400) X10*3/uL MPV 9.8 (9.4-12.4) fL Immature Gran % (Auto) 0.2 (0.0-0.4) % Neut % (Auto) 58.7 (45-73) % Lymph % (Auto) 33.6 (20-40) % [place] % (Auto) 5.8 (2-11) % Eos % (Auto) 1.2 (0-4) % Baso % (Auto) 0.5 (0-2) % Lymph # (Auto) 2.0 (1.2-4.9) X10*3/uL [place] # (Auto) 0.4 (0.1-1.2) X10*3/uL Eos # (Auto) 0.1 (0.0-0.4) X10*3/uL Baso # (Auto) 0.0 (0.0-0.2) X10*3/uL Abs Immat Gran (auto) 0.01 (0.00-0.03) X10*3/uL Absolute Neuts (auto) 3.6 (2.0-8.3) x10*3/uL Absolute Nucleated RBC 0.000 (0.0-0.012) X10*3/uL Nucleated RBC % (auto) 0.0 (0.0-0.2) /100WBC PT 11.3 (10.0-13.1) SEC INR 1.0 (0.9-1.1) Sodium 136 (135-145) mmol/L Potassium 4.2 (3.3-5.1) mmol/L Chloride 102 (96-108) mmol/L Carbon Dioxide 24 (22-29) mmol/L Anion Gap 14 (12-20) BUN 9 (9-16) mg/dL Creatinine 1.02 (0.5-1.4) mg/dL Estim Creat Clear Calc 111.7 Estimated GFR > 60 POC Glucose (60-115) mg/dL Random Glucose 415 H* (60-115) mg/dL Calcium 9.0 (8.4-10.2) mg/dL Magnesium 2.0 (1.6-2.6) mg/dL Total Bilirubin 0.7 (0.0-1.0) mg/dL AST 22 (5-37) U/L ALT 43 H (0-40) U/L Alkaline Phosphatase 57 (39-117) U/L Total Protein 6.0 L (6.5-8.0) g/dL Albumin 4.0 (3.5-5.0) g/dL Influenza Type A (PCR) (Negative) Influenza Type B (PCR) (Negative) RSV RNA Qual (PCR) (Negative) SARS-CoV-2 RNA (RT-PCR) (Negative) Blood Type Antibody Screen 01/05/23 01/05/23 01/06/23 Range/Units 19:57 20:03 01:40 WBC (4.8-10.8) X10*3/uL RBC (4.60-5.80) X10*6/uL Hgb (14.0-18.0) g/dl Hct (42.0-52.0) % MCV (80.0-98.0) fL MCH (27.0-33.0) pg MCHC (31.0-36.0) g/dl RDW (11.0-16.0) % Plt Count (160-400) X10*3/uL MPV (9.4-12.4) fL Immature Gran % (Auto) (0.0-0.4) % Neut % (Auto) (45-73) % Lymph % (Auto) (20-40) % [place] % (Auto) (2-11) % Eos % (Auto) (0-4) % Baso % (Auto) (0-2) % Lymph # (Auto) (1.2-4.9) X10*3/uL [place] # (Auto) (0.1-1.2) X10*3/uL Eos # (Auto) (0.0-0.4) X10*3/uL Baso # (Auto) (0.0-0.2) X10*3/uL Abs Immat Gran (auto) (0.00-0.03) X10*3/uL Absolute Neuts (auto) (2.0-8.3) x10*3/uL Absolute Nucleated RBC (0.0-0.012) X10*3/uL Nucleated RBC % (auto) (0.0-0.2) /100WBC PT (10.0-13.1) SEC INR (0.9-1.1) Sodium (135-145) mmol/L Potassium (3.3-5.1) mmol/L Chloride (96-108) mmol/L Carbon Dioxide (22-29) mmol/L Anion Gap (12-20) BUN (9-16) mg/dL Creatinine (0.5-1.4) mg/dL Estim Creat Clear Calc Estimated GFR POC Glucose 297 H (60-115) mg/dL Random Glucose (60-115) mg/dL Calcium (8.4-10.2) mg/dL Magnesium (1.6-2.6) mg/dL Total Bilirubin (0.0-1.0) mg/dL AST (5-37) U/L ALT (0-40) U/L Alkaline Phosphatase (39-117) U/L Total Protein (6.5-8.0) g/dL Albumin (3.5-5.0) g/dL Influenza Type A (PCR) NEGATIVE (Negative) Influenza Type B (PCR) NEGATIVE (Negative) RSV RNA Qual (PCR) NEGATIVE (Negative) SARS-CoV-2 RNA (RT-PCR) NEGATIVE (Negative) Blood Type O Positive Antibody Screen NEGATIVE <Tevin Soria MD - Last Filed: 01/06/23 02:27> Independent Interpretation I performed an independent interpretation of an: EKG (Normal size E3, left axis deviation, nonspecific T-wave changes, no acute ST elevations depressions, normal intervals) and Plain X-Ray (Chest: No acute cardiopulmonary disease) <Tevin Soria MD - Last Filed: 01/06/23 02:27> Radiology Impression Discussion of test interpretation with radiology: I have reviewed the radiologist's reading. (IMPRESSION: * No source of active gastrointestinal bleeding is identified. * Left colonic diverticulosis without evidence of diverticulitis. * Punctate nonobstructive calculus, right mid kidney. Dictated By:Jonathon Hays MDSigned By:<Electronically signed by Jonathon Hays MD in [place]>01/06/23) <Tevin Soria MD - Last Filed: 01/06/23 02:27> External Record Review External record reviewed: Office record (Brief operative note from today) <Tevin Soria MD - Last Filed: 01/06/23 02:27> Prescription Management I considered prescription management with: Pain Medication <Tevin Soria MD - Last Filed: 01/06/23 02:27> Chronic Conditions Patient?s care impacted by: Hypertension <Tevin Soria MD - Last Filed: 01/06/23 02:27> Discharge Plan Discharge Clinical Impression: Acute lower gastrointestinal bleeding <LYNN Rosa - Last Filed: 01/05/23 19:33> Patient Disposition: Home, Self-Care <LYNN Rosa - Last Filed: 01/05/23 19:33> Instructions: Gastrointestinal Bleeding (ED) <LYNN Rosa - Last Filed: 01/05/23 19:33> Additional Instructions: You were seen today in the emergency department for lower gastrointestinal bleeding. This is likely an adverse consequence of your colonoscopy today. Allow several hours he had no active bleeding. It would be of no surprise if you had some continued minor bleeding and passage of clots. Your blood counts were excellent. If he feels symptomatic such as lightheadedness, abdominal pain, palpitations, short of breath, please return to the emergency department for repeat evaluation and repeat lab work. <LYNN Rosa - Last Filed: 01/05/23 19:33> Prescriptions: No Action epinephrine [EpiPen 2-Joni] 0.3 mg/0.3 mL auto-injector 0.3 mg IM Q4H PRN (Reason: anaphylaxis) Qty: 2 0RF lisinopril 5 mg tablet 5 mg PO DAILY 90 Days Qty: 90 1RF albuterol sulfate 90 mcg/actuation HFA aerosol inhaler 1 - 2 puff PO Q4H PRN (Reason: bronchospasm) Qty: 8.5 0RF simvastatin 20 mg tablet 20 mg PO QPM Qty: 90 2RF citalopram 40 mg tablet 40 mg PO DAILY Qty: 90 2RF Trulicity 1.5 mg/0.5 mL pen injector 1.5 mg subcut QWEEK 90 Days Qty: 6.5 3RF Rx Instructions: Dose increased albuterol sulfate 2.5 mg /3 mL (0.083 %) solution for nebulization 2.5 mg inhalation Q4-6H PRN (Reason: Shortness Of Breath) Synjardy XR 12.5-1,000 mg tablet, IR - ER, biphasic 24hr 1 tab PO BID 90 Days Qty: 180 1RF alprazolam 0.25 mg tablet 0.25 mg PO BID PRN (Reason: anxiety) Qty: 14 2RF (DME) FreeStyle Javed 2 Sensor Kit See Rx Instructions .ROUTE .MEDSUPPLY Qty: 6 3RF Rx Instructions: As directed (DME) FreeStyle Javed 2 [place] Misc See Rx Instructions .ROUTE .MEDSUPPLY Qty: 1 0RF Rx Instructions: As directed glipizide 5 mg tablet 5 mg PO BID 30 Days Qty: 60 3RF cholecalciferol (vitamin D3) 25 mcg (1,000 unit) capsule 25 mcg PO DAILY 30 Days Qty: 30 4RF (DME) flash glucose sensor Kit See Rx Instructions topical Q2W Qty: 7 1RF Rx Instructions: every 14 days sildenafil 100 mg tablet 100 mg PO ONCE PRN (Reason: sexual activity) 30 Days Qty: 30 1RF Rx Instructions: administer 60 minutes before intended activity tadalafil 10 mg tablet 10 mg PO DAILY 90 Days Qty: 90 1RF Rx Instructions: daily dosing <LYNN Rosa - Last Filed: 01/05/23 19:33> Referrals: Harris Patel [Physician] - Po,Beatris Lange MD [Primary Care Provider] - 3 days <LYNN Rosa - Last Filed: 01/05/23 19:33>
[2023-01-05 20:03] LABS: MANUAL DIFF FLAG NO
[2023-01-05 20:05] LABS: Basophils Percent Auto 0.5 % (0-2); Eosinophils Absolute Auto 0.1 X10*3/uL (0.0-0.4); Eosinophils Percent Auto 1.2 % (0-4); Imm Gran Abs Auto 0.01 X10*3/uL (0.00-0.03); Imm Gran Pct Auto 0.2 % (0.0-0.4); Lymphocytes Percent Auto 33.6 % (20-40); Mean Corpuscular HGB Conc 34.1 g/dl (31.0-36.0); Mean Corpuscular Hemoglobin 30.7 pg (27.0-33.0); Mean Corpuscular Volume 90.2 fL (80.0-98.0); Mean Platelet Volume 9.8 fL (9.4-12.4); Monocytes Absolute Auto 0.4 X10*3/uL (0.1-1.2); Monocytes Percent Auto 5.8 % (2-11); Neutrophils Absolute Auto 3.6 x10*3/uL (2.0-8.3); Neutrophils Percent Auto 58.7 % (45-73); Platelet Count 223 X10*3/uL (160-400); Red Blood Count 4.88 X10*6/uL (4.60-5.80); White Blood Count 6.1 X10*3/uL (4.8-10.8)
[2023-01-05 20:11] LABS: Prothrombin Time 11.3 SEC (10.0-13.1)
[2023-01-05 20:23] LABS: Alanine Aminotransferase 43 U/L (0-40); Alkaline Phosphatase 57 U/L (39-117); Anion Gap 14 (12-20); Aspartate Amino Transferase 22 U/L (5-37); Bilirubin Total 0.7 mg/dL (0.0-1.0); Blood Urea Nitrogen 9 mg/dL (9-16); Carbon Dioxide 24 mmol/L (22-29); Chloride 102 mmol/L (96-108); Creatinine Clr Calc Pharmacy 111.7; Estimated Glomerular Filt Rate > 60; Glucose Random 415 mg/dL (60-115); Potassium 4.2 mmol/L (3.3-5.1); Sodium 136 mmol/L (135-145)
[2023-01-05 20:42] LABS: Influenza A PCR NEGATIVE (Negative); Influenza B PCR NEGATIVE (Negative); Resp Syncy Virus RNA Qual PCR NEGATIVE (Negative); SARS COV2 PCR INHOUSE NEGATIVE (Negative)
[2023-01-06] MEDS: iohexoL 350 MG/ML 100 ML INFUS..BTL 85 ML IV (01:26)
[2023-01-06 01:44] LABS: Glucose, Whole Blood 297 mg/dL (60-115)
[2023-01-06 02:16] VITALS: BP 119/68; PULSE 78; RESP 16; TEMP 36.8; O2SAT 99
--- NOTE | 2023-01-06 02:25 | PC.NURSE ---
this rn assumed care of pt from waiting room @ 0140.vss. skin pwd. pt ambulatory at discharge. pt provided with discharge instructions. pt verbalized understanding of discharge plan
== END 2023-01-06 02:35 | disposition home or self-care (01) ==
PROVIDERS: Physician Assistant Medical; Emergency Provider Emergency Medicine; PCP Internal Medicine
DX: K92.2 Gastrointestinal hemorrhage, unspecified (principal); R10.2 Pelvic and perineal pain; I10 Essential (primary) hypertension; Z20.822 Contact with and (suspected) exposure to COVID-19; Z20.828 Contact with and (suspected) exposure to other viral communicable diseases; Z79.899 Other long term (current) drug therapy
CPT/HCPCS: 0241U; 36415; 71046; 74178; 80053; 82947; 83735; 85025; 85610; 86850; 86900; 86901; 93005; 99284; Q9967

== ENCOUNTER 2023-06-06 13:33 | Outpatient (AMB) | payer BC, SELFPAY ==
--- NOTE | 2023-06-06 13:44 | A.OFFVIS_ITS ---
Intake Intake Visit Reasons: 6m follow up Intake Note: * Patient presents today for a 6mo follow-up * Meds- Tadalafil & Sildenagil * Allergies to Antibiotic- None * Blood Thinner- None Alodize Machine Operator Required: No Accompanied by: Self / Same As Patient Allergies bee pollen [BEE STINGS] Allergy (Unknown, Verified 06/06/23 13:47) SWELLING WASPS Allergy (Unknown, Uncoded 06/06/23 13:47) SWELLING HPI HPI Comments History of Present Illness Details Bob is a very pleasant male. He is a patient of Dr Hsieh. They are seen in the office today for the following urologic conditions. - erectile dysfunction Continue good response to combination therapy Erectile dysfunction: Type 2 diabetic Daily tadalafil successful Continue with 10 mg dosage He presents today for for continued evaluation and management of erectile dysfunction. Symptoms have been present for/since Ongoing. Procedure(s)/Diagnosis causing dysfunction include diabetes insulin- dependent. Current treatment includes Cialis/tadalafil daily. At this time he experiences erections are partial and insufficient for vaginal penetration, that undergo rapid detumesence after penetration, BROOKE 8-11 Moderate ED 8/20 , are full, rigid and adequate for vaginal penetration, that last until ejaculation, BROOKE 17-21 Mild ED. Nocturnal erections do occur - intermittently. Currently they are in a stable relationship. Associated problems hypertension No diabetes Yes Insulin-dependent since 2014 dyslipidemia Yes Overall he is satisfied with the current management. Therapeutic plan includes increasing dose of oral medication - trial of daily tadalafil with on demand sildenafil [facility] Medical History Asthma Carpal tunnel syndrome Diabetic nephropathy associated with type 2 diabetes mellitus Diabetic polyneuropathy associated with type 2 diabetes mellitus Diverticulitis Erectile dysfunction Fatty liver GERD (gastroesophageal reflux disease) Hypercholesterolemia Hypertension Irritable bowel syndrome Obesity (BMI 30-39.9) Renal calculi Type 2 diabetes mellitus with hyperglycemia Vitamin D deficiency Surgical History History of arthroscopy of left knee History of breast mammoplasty History of cataract surgery History of vasectomy Family History Father Skin cancer Mother Breast cancer Mouth cancer Hypertension Maternal Aunt Lung cancer Brother In good health Son In good health Son In good health Daughter In good health Maternal Grandfather Myocardial infarct Social History Housing: House Alcohol intake: current Alcohol intake frequency: a few times a month Patient Tobacco Use Status: Never used Tobacco Tobacco use type: Cigarette Years Smoked: stopped 2013 e-Cigarette/Vaping Use: Never Used Second Hand Smoke Exposure: Yes service: No Current occupational status: employed 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 Current occupational exposures/hazards: No Cognitive needs: No Hearing needs: No Vision needs: Yes Review of Systems Const Denies chills and Denies fever(s) Card Reports no additional complaints and Denies syncope Resp Denies cough GI Denies abdominal pain and Denies heartburn Reports as per HPI and Denies change in libido Neuro Denies syncope Psych Denies change in libido Endo Denies change in libido Physical Exam Const General: cooperative, healthy appearing, comfortable and no acute distress Orientation/consciousness: patient oriented x3 HEENT Face and sinus: Yes normal facial exam Mouth: moist mucous membranes Neck Neck: Yes normal visual inspection, Yes full ROM and Yes trachea midline Chest Chest palpation & inspection: normal inspection of the chest Resp Effort & Inspection: normal respiratory effort, able to speak in complete senten mayra and no respiratory distress GI Inspection: Yes normal to inspection Back/Spine/Pelvis Cervical Spine: normal cervical lordosis Thoracic/Lumbar Spine: thoracic and lumbar spine normal to inspection Skin General skin exam: no rashes or lesions noted Neuro General: patient oriented x3, gait normal, tone normal and moves all extremities Extrem General: Yes normal to inspection and Yes capillary refill normal Results AMB Urinalysis, Automated UA Leukoctes 0 Kaye/uL Last Edit by SHERWIN Miller on 06/06/23 13:57 UA Nitrite Negative Last Edit by SHERWIN Miller on 06/06/23 13:57 UA Urobilinogen 0.2 mg/dL Last Edit by Jackie White A on 06/06/23 13:5 7 UA Protein 0 mg/dL Last Edit by Jackie White A on 06/06/23 13:57 UA pH 6.0 Last Edit by Jackie White, A on 06/06/23 13:57 UA Blood 0 Clarence/uL Last Edit by Jackie White A on 06/06/23 13:57 UA Specific [place] 1.010 Last Edit by Jackie White, A on 06/06/23 13: 57 UA Ketone Negative Last Edit by Jackie White, A on 06/06/23 13:57 UA Bilirubin 0 mg/dL Last Edit by Jackie White A on 06/06/23 13:57 UA Glucose 1000 mg/dL Last Edit by Jackie White A on 06/06/23 13:57 3+ Jackie White 06/06/23 13:57 Results Reviewed Results Reviewed: Laboratory Last Values Urine pH (Auto) 6.0 06/06/23 13:50 Specific [place] (Auto) 1.010 06/06/23 13:50 Urine Protein (Auto) 0 mg/dL 06/06/23 13:50 Glucose (UA)(Auto) 1000 mg/dL 06/06/23 13:50 Urine Ketones (Auto) Negative 06/06/23 13:50 Urine Blood (Auto) 0 Clarence/uL 06/06/23 13:50 Urine Nitrite (Auto) Negative 06/06/23 13:50 Urine Bilirubin (Auto) 0 mg/dL 06/06/23 13:50 Urine Urobilinogen (Auto) 0.2 mg/dL 06/06/23 13:50 Leukocyte Esterase (Auto) 0 Kaye/uL 06/06/23 13:50 Assessment & Plan Assessment & Plan (1) Erectile dysfunction associated with type 2 diabetes mellitus: Code(s): E11.69 - Type 2 diabetes mellitus with other specified complication; N52.1 - Erectile dysfunction due to diseases classified elsewhere Plan Six month follow-up Orders: Orders AMB Urinalysis Automated 06/06/23 Z13.9 - Encounter for screening, unspecified Patient Instructions: Imaging studies, laboratory and physical exam results were discussed and reviewed in detail. No major barriers to patient understanding were identified. An opportunity to ask questions regarding the treatment plan was provided. All questions were answered. The patient expressed understanding and agreement with the above treatment plan. The patient is aware they should contact our office by phone for worsening of their current condition or the appearance of new urologic symptoms. Compliance is encouraged with any medications and followup testing that is ordered. It is a privilege to participate in the urologic care of your patient. If you have any questions or concerns regarding treatment for the above conditions, or other urologic issues, please do not hesitate to contact me. The office telephone contact is [phone]. This note is constructed using voice recognition software. While every effort has been made to ensure accuracy crts errors may have been included. Yours sincerely, Dr Gigi Gregory MD, [facility] - Urology Providers of Expert, Compassionate Care for the Genitourinary System Coding Level of Care Code Est Pt Level 3 (62040) Diagnoses Erectile dysfunction associated with type 2 diabetes mellitus E11.69; N52.1
== END 2023-06-06 15:01 | disposition home or self-care (01) ==
PROVIDERS: Visit Provider Urology
DX: E11.69 Type 2 diabetes mellitus with other specified complication (principal); N52.1 Erectile dysfunction due to diseases classified elsewhere
CPT/HCPCS: 99213

== ENCOUNTER → 2023-06-06 13:33 | Outpatient (BNVA) | payer BC, SELFPAY | PROVIDERS: Visit Provider Urology ==

== ENCOUNTER 2023-10-08 17:10 | Outpatient (AMB) | payer BC, SELFPAY ==
[2023-10-08 17:32] VITALS: BP 146/80; PULSE 90; O2SAT 97; BMI 35.1
--- NOTE | 2023-10-08 17:32 | A.OFFPC_ITS ---
Vital Signs 10/08/23 17:32 Height 5 ft 11 in Weight 252 lb BMI 35.1 BP 146/80 H Blood Pressure Location Lt brachial Position Sitting Pulse 90 Pulse Source Pulse Oximeter Pulse Oximetry (%) 97 Oxygen Delivery Method Room Air Intake Visit Reasons: PE Intake Note: Patient is here today for a physical. Front Desk Coordinator Required: No Accompanied by: Self / Same As Patient Allergies bee pollen [BEE STINGS] Allergy (Unknown, Verified 10/08/23 17:33) SWELLING WASPS Allergy (Unknown, Uncoded 10/08/23 17:33) SWELLING Tobacco use date assessed: 04/24/23 Dental Screening Dental Screen Date: 10/08/23 Did you have a dental visit in the last 12 months?: Yes Did you have a dental problem in the last 6 months where you did not have access to dental care?: No Was dental information given to patient?: Patient has dentist HPI PE HPI Details Physician was late for the appointment PENDING SALE TO [facility] Medical History Asthma Carpal tunnel syndrome Diabetic nephropathy associated with type 2 diabetes mellitus Diabetic polyneuropathy associated with type 2 diabetes mellitus Diverticulitis Erectile dysfunction Fatty liver GERD (gastroesophageal reflux disease) Hypercholesterolemia Hypertension Irritable bowel syndrome Obesity (BMI 30-39.9) Renal calculi Type 2 diabetes mellitus with hyperglycemia Vitamin D deficiency Surgical History History of cataract surgery History of vasectomy History of arthroscopy of left knee History of breast mammoplasty Family History Father Skin cancer Mother Breast cancer Mouth cancer Hypertension Maternal Aunt Lung cancer Brother In good health Son In good health Son In good health Daughter In good health Maternal Grandfather Myocardial infarct Social History Housing: House Alcohol intake: current Alcohol intake frequency: a few times a month Patient Tobacco Use Status: Never used Tobacco Tobacco use type: Cigarette Years Smoked: stopped 2013 e-Cigarette/Vaping Use: Never Used Second Hand Smoke Exposure: Yes service: No Current occupational status: employed 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 Rudy Borrero, Carlotta Gaxiola, Rohan Jenkins and colleagues, with an educational tracee from [employer]. Physical exam (Primary Care) Vital Signs: Last Vital Signs Pulse 90 10/08/23 17:32 BP 146/80 H 10/08/23 17:32 Pulse Ox 97 10/08/23 17:32 Oxygen Delivery Method Room Air 10/08/23 17:32 BMI result Body Mass Index 35.1 Tobacco/Smoking Status: Tobacco use Status Tobacco use date assessed 04/24/23 10/08/23 17:33 Patient Tobacco Use Status Never used Tobacco 10/08/23 17:33 Tobacco use type Cigarette 10/08/23 17:33 e-Cigarette/Vaping Use Never Used 10/08/23 17:33 Thrive Assessment: Date of Thrive Assessment Date Thrive assessed 05/21/23 10/08/23 17:33 Office Procedures Flu Questionnaire Does the patient have a severe egg allergy?: No Results AMB Hemoglobin A1c AMB Hemoglobin A1c 8.4 % Last Edit by SHERWIN Barba on 10/08/23 18:1 6 Immunizations flu vacc [id number] 6mos up(PF) 60 mcg(15 mcgx4)/0.5 mL IM syringe Performing Provider: Beatris Hsieh MD [facility] Documented (not given) by: SHERWIN Barba on 10/08/23 18:07 Reason Not Given: Patient Refused Results Reviewed Results Reviewed: Laboratory Last Values Hgb A1c (Clinic) 8.4 % (4.0-6.0) H 10/08/23 18:04 Assessment and Plan Assessment & Plan Orders: Orders AMB Hemoglobin A1c Today E11.65 - Type 2 diabetes mellitus with hyperglycemia Influenza [id number] Immunization Today Z23 - Encounter for immunization Coding Level of Care Code Left Without Being Seen
== END 2023-10-08 18:51 | disposition home or self-care (01) ==
LOC: HO.HMGH 17:10
PROVIDERS: PCP Internal Medicine; Visit Provider Internal Medicine
DX: E11.65 Type 2 diabetes mellitus with hyperglycemia (principal)
CPT/HCPCS: 83036

== ENCOUNTER 2023-12-07 15:09 | Outpatient (AMB) | payer BC, SELFPAY ==
--- NOTE | 2023-12-07 15:10 | MHC.OFFVIS ---
Intake Intake Visit Reasons: 6m follow up Intake Note: Patient is Present for Telephone Follow Up For Urology Med: Tadalafil Antibiotic Allergy: None Blood Thinner: None Allergies bee pollen [BEE STINGS] Allergy (Unknown, Verified 10/08/23 17:33) SWELLING WASPS Allergy (Unknown, Uncoded 10/08/23 17:33) SWELLING HPI HPI Comments History of Present Illness Details Bob is a very pleasant male. He is a patient of Dr Hsieh. They are seen in the office today for the following urologic conditions. - erectile dysfunction Telemedicine Evaluation 15 min Consultation [employer] Sandra Video Continue good response to high-dose therapy Six-month follow-up Erectile dysfunction: Type 2 diabetic Daily tadalafil successful - Continue with 20 mg dosage He presents today for for continued evaluation and management of erectile dysfunction. Symptoms have been present for/since Ongoing. Procedure(s)/Diagnosis causing dysfunction include diabetes insulin-dependent. Current treatment includes Cialis/tadalafil daily. At this time he experiences erections are partial and insufficient for vaginal penetration, that undergo rapid detumesence after penetration, BROOKE 8-11 Moderate ED 8/20 , are full, rigid and adequate for vaginal penetration, that last until ejaculation, BROOKE 17-21 Mild ED. Nocturnal erections do occur - intermittently. Currently they are in a stable relationship Associated problems hypertension No diabetes Yes Insulin-dependent since 2014 dyslipidemia Yes Overall he is satisfied with the current management. Therapeutic plan includes increasing dose of oral medication - trial of daily tadalafil with on demand sildenafil PFS Medical History Asthma Carpal tunnel syndrome Diabetic nephropathy associated with type 2 diabetes mellitus Diabetic polyneuropathy associated with type 2 diabetes mellitus Diverticulitis Erectile dysfunction Fatty liver GERD (gastroesophageal reflux disease) Hypercholesterolemia Hypertension Irritable bowel syndrome Obesity (BMI 30-39.9) Renal calculi Type 2 diabetes mellitus with hyperglycemia Vitamin D deficiency Surgical History History of cataract surgery History of vasectomy History of arthroscopy of left knee History of breast mammoplasty Family History Father Skin cancer Mother Breast cancer Mouth cancer Hypertension Maternal Aunt Lung cancer Brother In good health Son In good health Son In good health Daughter In good health Maternal Grandfather Myocardial infarct Social History Housing: House Alcohol intake: current Alcohol intake frequency: a few times a month Patient Tobacco Use Status: Never used Tobacco Tobacco use type: Cigarette Years Smoked: stopped 2013 e-Cigarette/Vaping Use: Never Used Second Hand Smoke Exposure: Yes service: No Current occupational status: employed 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 Current occupational exposures/hazards: No Cognitive needs: No Hearing needs: No Vision needs: Yes Review of Systems Const All systems reviewed & are unremarkable except as noted in HPI and below Reports no additional complaints Resp Reports no additional complaints GI Reports no additional complaints Reports as per HPI Musc Reports no additional complaints Physical Exam Telemedicine evaluation Appropriate responses Regular breathing rate and rhythm HEENT Head: Yes normal to inspection Ears: hearing grossly normal bilaterally Eyes General: appearance normal, both eyes and all related structures Neck Neck: Yes normal visual inspection Chest Chest palpation & inspection: normal inspection of the chest Resp Effort & Inspection: normal respiratory effort and able to speak in complete sentences Assessment & Plan Assessment & Plan (1) Erectile dysfunction associated with type 2 diabetes mellitus: Code(s): E11.69 - Type 2 diabetes mellitus with other specified complication; N52.1 - Erectile dysfunction due to diseases classified elsewhere Plan Six-month follow-up office Patient Instructions: Imaging studies, laboratory and physical exam results were discussed and reviewed in detail. No major barriers to patient understanding were identified. An opportunity to ask questions regarding the treatment plan was provided. All questions were answered. The patient expressed understanding and agreement with the above treatment plan. The patient is aware they should contact our office by phone for worsening of their current condition or the appearance of new urologic symptoms. Compliance is encouraged with any medications and followup testing that is ordered. It is a privilege to participate in the urologic care of your patient. If you have any questions or concerns regarding treatment for the above conditions, or other urologic issues, please do not hesitate to contact me. The office telephone contact is [phone]. This note is constructed using voice recognition software. While every effort has been made to ensure accuracy mortgage assistant errors may have been included. Yours sincerely, Dr Gigi Gregory MD, [facility] - Urology Providers of Expert, Compassionate Care for the Genitourinary System Telehealth Telehealth Location of provider rendering services: practice address Location of patient: address on file Patient Identification confirmed using: Name, : Yes Telehealth method: video Patient verbally consented to treatment: Yes Patient verbally consented to billing insurance company: Yes Patient informed of any privacy concerns related to visit: Yes Coding Level of Care Code Tele Est Pt Level 3 (56448) Diagnoses Erectile dysfunction associated with type 2 diabetes mellitus E11.69; N52.1
== END 2023-12-07 15:44 | disposition home or self-care (01) ==
LOC: HO.HUSH 15:09
PROVIDERS: PCP Internal Medicine; Visit Provider Urology
DX: E11.69 Type 2 diabetes mellitus with other specified complication (principal); N52.1 Erectile dysfunction due to diseases classified elsewhere
CPT/HCPCS: 99213

== ENCOUNTER → 2023-12-07 15:09 | Outpatient (BNVA) | payer BC, SELFPAY | PROVIDERS: PCP Internal Medicine; Visit Provider Urology ==

== ENCOUNTER 2024-04-24 06:48 | Outpatient (REF) | payer BC, SELFPAY ==
[2024-04-24 07:00] LABS: MANUAL DIFF FLAG NO
[2024-04-24 07:57] LABS: Basophils Percent Auto 0.6 % (0-2); Eosinophils Absolute Auto 0.1 X10*3/uL (0.0-0.4); Hematocrit 46.3 % (42.0-52.0); Hemoglobin 16.6 g/dl (14.0-18.0); Imm Gran Abs Auto 0.01 X10*3/uL (0.00-0.03); Imm Gran Pct Auto 0.2 % (0.0-0.4); Lymphocytes Absolute Auto 1.7 X10*3/uL (1.2-4.9); Lymphocytes Percent Auto 36.2 % (20-40); Mean Corpuscular HGB Conc 35.9 g/dl (31.0-36.0); Mean Corpuscular Hemoglobin 31.5 pg (27.0-33.0); Mean Corpuscular Volume 87.9 fL (80.0-98.0); Mean Platelet Volume 10.3 fL (9.4-12.4); Monocytes Absolute Auto 0.4 X10*3/uL (0.1-1.2); Monocytes Percent Auto 9.3 % (2-11); Neutrophils Absolute Auto 2.4 x10*3/uL (2.0-8.3); Neutrophils Percent Auto 50.7 % (45-73); Platelet Count 196 X10*3/uL (160-400); Red Blood Count 5.27 X10*6/uL (4.60-5.80); Red Cell Distribution Width 12.9 % (11.0-16.0); White Blood Count 4.7 X10*3/uL (4.8-10.8)
[2024-04-24 08:20] LABS: Creatinine Urine 107.63 mg/dL; Microalbum/Creatinine Ratio Ur 10.2 ug/mg cr (<30)
[2024-04-24 08:34] LABS: Alanine Aminotransferase 33 U/L (0-40); Albumin Level 4.3 g/dL (3.5-5.0); Alkaline Phosphatase 67 U/L (39-117); Anion Gap 13 (12-20); Aspartate Amino Transferase 17 U/L (5-37); Bilirubin Total 0.7 mg/dL (0.0-1.0); Blood Urea Nitrogen 15 mg/dL (9-16); Calcium 8.8 mg/dL (8.4-10.2); Carbon Dioxide 24 mmol/L (22-29); Chloride 104 mmol/L (96-108); Cholesterol 220 mg/dL (<200); Estimated Glomerular Filt Rate > 60; Glucose Random 332 mg/dL (60-115); HDL Cholesterol 37 mg/dL (>40); LDL Cholesterol Calculated 130 mg/dL (<100); Sodium 137 mmol/L (135-145); Total Protein 6.8 g/dL (6.5-8.0); Triglycerides 269 mg/dL (<150)
[2024-04-24 08:41] LABS: Thyroid Stimulating Hormone 2.24 uIU/mL (0.32-4.0)
[2024-04-24 08:56] LABS: Folate 7.9 ng/mL (> or = 4.0); Prostate Specific Antigen Scr 0.44 ng/mL (<0.05-4.0); Vitamin B12 408 pg/mL (200-900)
== END 2024-04-24 06:49 | disposition home or self-care (01) ==
LOC: HO.LAB 06:48
PROVIDERS: PCP Internal Medicine; Visit Provider Internal Medicine
DX: E11.65 Type 2 diabetes mellitus with hyperglycemia (principal); Z79.4 Long term (current) use of insulin; E78.00 Pure hypercholesterolemia, unspecified; Z12.5 Encounter for screening for malignant neoplasm of prostate
CPT/HCPCS: 36415; 80053; 80061; 82043; 82570; 82607; 82746; 84153; 84439; 84443; 85025

== ENCOUNTER 2024-07-21 14:27 | Outpatient (AMB) | payer BC, SELFPAY ==
[2024-07-21 14:35] VITALS: BP 142/88; PULSE 85; O2SAT 98; BMI 34.4
--- NOTE | 2024-07-21 14:35 | MHC.PC.OV ---
Vital Signs 07/21/24 14:35 07/21/24 15:03 Height 5 ft 11 in Weight 247 lb BMI 34.4 BP 142/88 H 120/70 Blood Pressure Location Lt brachial Lt brachial Position Sitting Sitting Pulse 85 Pulse Source Pulse Oximeter Pulse Oximetry (%) 98 Oxygen Delivery Method Room Air Intake Visit Reasons: Medication F/U Intake Note: Can not afford the Mounjaro or the Jardiance Allergies bee pollen [BEE STINGS] Allergy (Unknown, Verified 07/21/24 14:35) SWELLING WASPS Allergy (Unknown, Uncoded 07/21/24 14:35) SWELLING Medication List - Last Reconciled 07/21/24 by Beatirs Hsieh MD albuterol sulfate 2.5 mg inhalation Q4-6H PRN albuterol sulfate 90 mcg/actuation 1 - 2 puffs PO Q4H PRN alprazolam 0.25 mg PO BID PRN citalopram 40 mg PO DAILY epinephrine (EpiPen 2-Joni) 0.3 mg (0.3 mL) IM Q4H PRN flash glucose scanning reader (FreeStyle Javed 2 [place]) As directed flash glucose sensor every 14 days flash glucose sensor (FreeStyle Javed 2 Sensor kit) As directed glipizide 5 mg PO BID 30 days lisinopril 5 mg PO DAILY 90 days simvastatin 20 mg PO QPM tadalafil 20 mg PO DAILY 90 days Tobacco use date assessed: 07/21/24 Dental Screening Dental Screen Date: 07/21/24 Did you have a dental visit in the last 12 months?: Yes Did you have a dental problem in the last 6 months where you did not have access to dental care?: No Was dental information given to patient?: Patient has dentist HPI Medication F/U HPI Details 53-year-old obese male with diabetes mellitus hypercholesterolemia hypertension asthma generalized anxiety disorder GERD coming in for follow-up. Review of the notes has been follow-up with urology through telephone for erectile dysfunction . Daily tadalafil 20 mg once a day prescribed. March was the last blood work with an elevated LDL [facility] Medical History Asthma Carpal tunnel syndrome Diabetic nephropathy associated with type 2 diabetes mellitus Diabetic polyneuropathy associated with type 2 diabetes mellitus Diverticulitis Erectile dysfunction Fatty liver GERD (gastroesophageal reflux disease) Hypercholesterolemia Hypertension Irritable bowel syndrome Obesity (BMI 30-39.9) Renal calculi Type 2 diabetes mellitus with hyperglycemia Vitamin D deficiency Surgical History History of cataract surgery History of vasectomy History of arthroscopy of left knee History of breast mammoplasty Family History Father Skin cancer Mother Breast cancer Mouth cancer Hypertension Maternal Aunt Lung cancer Brother In good health Son In good health Son In good health Daughter In good health Maternal Grandfather Myocardial infarct Social History Housing: House Alcohol intake: current Alcohol intake frequency: a few times a month Patient Tobacco Use Status: Never used Tobacco Tobacco use type: Cigarette Years Smoked: stopped 2013 e-Cigarette/Vaping Use: Never Used Second Hand Smoke Exposure: Yes service: No Current occupational status: employed Current occupation: [employer] Current occupational exposures/hazards: No Cognitive needs: No Hearing needs: No Vision needs: Yes Questionnaire PHQ-9 Over the last 2 weeks, how often have you been bothered by any of the following problems? 1. Little interest or pleasure in doing things: not at all 2. Feeling down, depressed, or hopeless: not at all 3. Trouble falling or staying asleep, or sleeping too much: not at all 4. Feeling tired or having little energy: not at all 5. Poor appetite or overeating: not at all 6. Feeling bad about yourself - or that you are a failure or have let yourself or your family down: not at all 7. Trouble concentrating on things, such as reading the newspaper or watching television: not at all 8. Moving or speaking so slowly that other people could have noticed. Or the opposite - being so fidgety or restless that you have been moving around a lot more than usual: not at all 9. Thoughts that you would be better off or of hurting yourself in some way: not at all Total score: 0 Depression Screening Interpretation: Negative Depression Screening Done: Yes Source: Developed by Drs. Rudy Borrero, Carlotta Gaxiola, Rohan Jenkins and colleagues, with an educational tracee from [employer]. Thrive Questionnaire Date Thrive assessed: 07/21/24 I am a: Patient What is your living situation today?: I have a steady place to live Within the past 12 months, did the food you bought not last and you didn't have the money to get more?: Never true Within the past 12 months, did you worry whether your food would run out before you got money to buy more?: Never true Do you have trouble paying for medicines?: No Do you have trouble getting transportation to medical appointments?: No Do you have trouble paying your heating and electricity bill?: No Do you have trouble taking care of your child, family member or friend?: No Do you have trouble with day-to-day activities such as bathing, preparing meals, shopping, managing finances, etc.?: No Are you currently unemployed and looking for a job?: No Are you interested in more education?: No Currently or been in a relationship where the following occur: No concerns reported THRIVE Score: 0 AUDIT C Alcohol Use Questionnaire (AUDIT-C) 1. How often do you have a drink containing alcohol?: Never 3. How often do you have six or more drinks on one occasion?: Never Total Score: 0 Score Reviewed/Action Taken: No STORMY-7 AMB Questionnaire STORMY-7 Date STORMY - 7 assessed: 07/21/24 Feeling nervous, anxious, or on edge: 0 = Not at all Not being able to stop or control worryin = Not at all Worrying too much about different things: 0 = Not at all Trouble relaxin = Not at all Being so restless that it is hard to sit still: 0 = Not at all Becoming easily annoyed or irritable: 0 = Not at all Feeling afraid as if something awful might happen: 0 = Not at all Total STORMY-7 score (0-4 normal; 5-9 mild; 10-14 moderate; 15-21 severe): 0 Source: Developed by Drs. Rudy Borrero, Carlotta Gaxiola, Rohan Jenkins and colleagues, with an educational tracee from [employer]. Physical exam (Primary Care) Vital Signs: Last Vital Signs Pulse 85 07/21/24 14:35 BP 120/70 07/21/24 15:03 Pulse Ox 98 07/21/24 14:35 Oxygen Delivery Method Room Air 07/21/24 14:35 BMI result Body Mass Index 34.4 Tobacco/Smoking Status: Tobacco use Status Tobacco use date assessed 07/21/24 07/21/24 14:36 Patient Tobacco Use Status Never used Tobacco 07/21/24 14:36 Tobacco use type Cigarette 07/21/24 14:36 e-Cigarette/Vaping Use Never Used 07/21/24 14:36 PHQ-9: PHQ-9 Score PHQ-9: Total score 0 07/21/24 14:51 Depression Screening Interpretation: Negative Thrive Assessment: Date of Thrive Assessment Date Thrive assessed 07/21/24 07/21/24 14:36 Currently or been in a relationship where the following occur: No concerns reported Const General: alert; No acute distress Eyes Conjunctivae: conjunctivae normal Resp Auscultation: clear to auscultation bilaterally Cardio Rate: regular rate Rhythm: regular rhythm GI Inspection: Yes normal to inspection Extrem General: Yes normal to inspection and No edema Results AMB Hemoglobin A1c AMB Hemoglobin A1c 10.2 % Last Edit by Margarette Denise CMA on 07/21/24 14:52 Results Reviewed Results Reviewed: Laboratory Last Values Hgb A1c (Clinic) 10.2 % (4.0-6.0) H 07/21/24 14:40 Assessment and Plan Assessment & Plan (1) Type 2 diabetes mellitus with hyperglycemia: Comment: Dr. Nation Code(s): E11.65 - Type 2 diabetes mellitus with hyperglycemia Qualifiers: Diabetes mellitus half-way insulin use: with terminal makeup operator use Qualified Code(s): E11.65 - Type 2 diabetes mellitus with hyperglycemia; Z79.4 - intermediate (current) use of insulin Plan: Decrease the amount of carbohydrate intake, pasta, bread, rice and potatoes are all sugar and that is aside from all the sweet stuff, remember that fruits are good but they are Sweet also. Hemoglobin A1c goal of less than 6.5. Patient on Jardiance 25 mg once a day glipizide 5 mg twice a day and Mounjaro (2) Hypercholesterolemia: Code(s): E78.00 - Pure hypercholesterolemia, unspecified Plan: Avoid fried foods, chicken skin, eggs, butter margarine, pastries and meat. Be it pork or beef they have a lot of cholesterol LDL goal of less than 100 and triglyceride of less than 150 placed on simvastatin 20 mg at bedtime and advised to retest blood work. (3) Hypertension: Code(s): I10 - Essential (primary) hypertension Qualifiers: Hypertension type: essential hypertension Qualified Code(s): I10 - Essential (primary) hypertension Plan: Continue with blood pressure medication. Decrease salt intake and exercise on lisinopril 5 mg once a day (4) Obesity (BMI 30-39.9): Code(s): E66.9 - Obesity, unspecified Plan: Diet and exercise (5) Erectile dysfunction: Code(s): N52.9 - Male erectile dysfunction, unspecified Plan: Patient is followed up by Urology on tadalafil 20 mg once a day (6) Generalized anxiety disorder: Comment: [facility] genevieve done 06/2024 Code(s): F41.1 - Generalized anxiety disorder Plan: Continue with therapy (7) GERD (gastroesophageal reflux disease): Code(s): K21.9 - Gastro-esophageal reflux disease without esophagitis Plan: Avoid the foods that causes that usually spicy foods, tomato products, juices, coffee, soda and foods that your sensitive to. After eating do not lie down, allow 3-4 hours before in lie down. And keep the head of bed above 30 degrees to avoid the acid from going up. (8) Sebaceous cyst: Comment: posterior neck area Code(s): L72.3 - Sebaceous cyst Orders: Orders AMB Hemoglobin A1c Today Z13.9 - Encounter for screening, unspecified Comprehensive Met. Panel 3 Months E78.00 - Pure hypercholesterolemia, unspecified Lipid Panel 3 Months E78.00 - Pure hypercholesterolemia, unspecified Referrals General Surgery Referral L72.3 - Sebaceous cyst Medications: New semaglutide (Ozempic) 1 mg (0.75 mL) subcut QWEEK 9 mL 2RF E11.65 - Type 2 diabetes mellitus with hyperglycemia, Z79.4 - intermediate (current) use of insulin Coding Level of Care Code Est Pt Level 4 (95189) Diagnoses Type 2 diabetes mellitus with hyperglycemia, with long-term current use of insulin E11.65; Z79.4 Diabetes mellitus terminal makeup operator insulin use: with terminal makeup operator use Hypercholesterolemia E78.00 Essential hypertension I10 Hypertension type: essential hypertension Obesity (BMI 30-39.9) E66.9 Erectile dysfunction N52.9 Generalized anxiety disorder F41.1 GERD (gastroesophageal reflux disease) K21.9 Sebaceous cyst L72.3
[2024-07-21 15:03] VITALS: BP 120/70
== END 2024-07-21 15:17 | disposition home or self-care (01) ==
PROVIDERS: PCP Internal Medicine; Visit Provider Internal Medicine
DX: E11.65 Type 2 diabetes mellitus with hyperglycemia (principal); Z79.4 Long term (current) use of insulin; E78.00 Pure hypercholesterolemia, unspecified; I10 Essential (primary) hypertension; E66.9 Obesity, unspecified; N52.9 Male erectile dysfunction, unspecified; F41.1 Generalized anxiety disorder; K21.9 Gastro-esophageal reflux disease without esophagitis; L72.3 Sebaceous cyst; Z13.9 Encounter for screening, unspecified
CPT/HCPCS: 83036; 99214

== ENCOUNTER 2024-08-04 10:38 | Outpatient (REF) | payer BC, SELFPAY | END 2024-08-04 10:39 | disposition home or self-care (01) | LOC: HO.LNP 10:38 | PROVIDERS: PCP Internal Medicine; Referring Provider Internal Medicine; Visit Provider Surgery | DX: L72.3 Sebaceous cyst (principal) | CPT/HCPCS: 11423; 88304; 88305 ==

== ENCOUNTER 2024-08-04 10:38 | Outpatient (AMB) | payer BC, SELFPAY ==
--- NOTE | 2024-08-04 10:51 | A.OFFVIS_ITS ---
Vital Signs 08/04/24 10:59 Height 5 ft 11 in Weight 246 lb 15.989 oz BMI 34.4 Intake Visit Reasons: Cyst~ Post neck Intake Note: Patient referred by pcp Dr. Hsieh for cyst on posterior neck. Present for ? Patient c/o: reports irritation and discomfort, posterior neck. 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 [employer] Required: No Accompanied by: Self / Same As Patient Allergies bee pollen [BEE STINGS] Allergy (Unknown, Verified 08/04/24 11:00) SWELLING WASPS Allergy (Unknown, Uncoded 08/04/24 11:00) SWELLING Medication List - Last Reconciled 08/04/24 by Jaylen Barr MD albuterol sulfate 2.5 mg inhalation Q4-6H PRN albuterol sulfate 90 mcg/actuation 1 - 2 puffs PO Q4H PRN alprazolam 0.25 mg PO BID PRN citalopram 40 mg PO DAILY epinephrine (EpiPen 2-Joni) 0.3 mg (0.3 mL) IM Q4H PRN flash glucose scanning reader (GeneExcelStyle Javed 2 [place]) As directed flash glucose sensor every 14 days flash glucose sensor (FreeStyle Javed 2 Sensor kit) As directed glipizide 5 mg PO BID 30 days lisinopril 5 mg PO DAILY 90 days semaglutide (Ozempic) 1 mg (0.75 mL) subcut QWEEK simvastatin 20 mg PO QPM tadalafil 20 mg PO DAILY 90 days HPI Comments Details: Patient presents for evaluation of a left posterior neck cyst. He has had this several years time. His increasing in size, become more symptomatic. He would like to have removed. He has no such lesions elsewhere. Chart was reviewed and patient evaluate [facility] Medical History Diabetic polyneuropathy associated with type 2 diabetes mellitus Diabetic nephropathy associated with type 2 diabetes mellitus Renal calculi Diverticulitis Irritable bowel syndrome Fatty liver GERD (gastroesophageal reflux disease) Carpal tunnel syndrome Erectile dysfunction Obesity (BMI 30-39.9) Hypertension Asthma Hypercholesterolemia Vitamin D deficiency Type 2 diabetes mellitus with hyperglycemia Surgical History History of cataract surgery History of vasectomy History of arthroscopy of left knee History of breast mammoplasty Family History Father Skin cancer Mother Breast cancer Mouth cancer Hypertension Maternal Aunt Lung cancer Brother In good health Son In good health Son In good health Daughter In good health Maternal Grandfather Myocardial infarct Social History Housing: House Alcohol intake: current Alcohol intake frequency: a few times a month Patient Tobacco Use Status: Never used Tobacco Tobacco use type: Cigarette Years Smoked: stopped 2013 e-Cigarette/Vaping Use: Never Used Second Hand Smoke Exposure: Yes service: No Current occupational status: employed 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 Current occupational exposures/hazards: No Cognitive needs: No Hearing needs: No Vision needs: Yes Physical Exam Vital Signs: BMI result Body Mass Index 34.4 Neck Other: Roughly 3 x 2 cm posterior neck soft tissue mass consistent with a large sebaceous cyst Office Procedures Excision Details: Risks, benefits, alternatives of excision of posterior neck cyst were reviewed the patient included but not limited to bleeding, infection, recurrence, numbness, pain, scarring, seroma formation the patient wished to proceed. All questions answered. Consent signed. After appropriate positioning, patient underwent 1% lidocaine and Betadine prep and a transverse by elliptical incision encompassing the large sebaceous cyst as noted above with dimensions roughly 3 x 2 cm. Specimen sent to pathology. Wound was irrigated, secured hemostasis, and closed using running 3-0 Vicryl suture followed by Steri-Strips and sterile dressings. Patient tolerated procedure well. 23715-[place] scalp/neck/hands/feet/genitalia 2.1cm-3cm Procedure code (CPT) selection complete Office Meds lidocaine 1 %-epinephrine 1:100,000 injection solution Performing Provider: Jaylen Barr MD [place] [facility] [place] [facility] Administered by: Jaylen Barr MD on 08/04/24 11:26 Dose Route Admin Location Dispensed Lot Number Expiration Date [facility] Credit Collections Manager 10 mL Infiltration 10 mL Assessment & Plan Assessment & Plan (1) Sebaceous cyst: Comment: posterior neck area Code(s): L72.3 - Sebaceous cyst Category: Surgical Plan: Patient has been given local instructions including avoiding strenuous activities, ice to the wound periodically, may shower in 2 days, Tylenol or Motrin p.r.n. pain. Patient will see me as directed or p.r.n.. Orders: Orders AMB Excision Today L72.3 - Sebaceous cyst Medications: New lidocaine-epinephrine 1 %-1:100,000 10 mL Infiltration ONCE 30 mL 0RF L72.3 - Sebaceous cyst Coding Level of Care Code New Pt Level 5 (55849) Diagnoses Sebaceous cyst L72.3 CPT Codes Scalp/Neck/Hands/Feet/Genetalia - CPT: 00294-[place] scalp/neck/hands/feet/genitalia 2.1cm-3cm ([id number])
[2024-08-04 10:59] VITALS: BMI 34.4
== END 2024-08-04 11:20 | disposition home or self-care (01) ==
PROVIDERS: PCP Internal Medicine; Referring Provider Internal Medicine; Visit Provider Surgery
DX: L72.3 Sebaceous cyst (principal); D21.0 Benign neoplasm of connective and other soft tissue of head, face and neck
CPT/HCPCS: 11423; 99204

== ENCOUNTER 2024-08-11 11:31 | Outpatient (AMB) | payer BC, SELFPAY ==
--- NOTE | 2024-08-11 11:49 | MHC.OFFVIS ---
Intake Visit Reasons: s/p excision Cyst~ Post neck Allergies bee pollen [BEE STINGS] Allergy (Unknown, Verified 08/04/24 11:00) SWELLING WASPS Allergy (Unknown, Uncoded 08/04/24 11:00) SWELLING HPI Comments Details: Patient presents for follow-up. He has no wound issues or complaints. Pathology is benign. [facility] Medical History Diabetic polyneuropathy associated with type 2 diabetes mellitus Diabetic nephropathy associated with type 2 diabetes mellitus Renal calculi Diverticulitis Irritable bowel syndrome Fatty liver GERD (gastroesophageal reflux disease) Carpal tunnel syndrome Erectile dysfunction Obesity (BMI 30-39.9) Hypertension Asthma Hypercholesterolemia Vitamin D deficiency Type 2 diabetes mellitus with hyperglycemia Surgical History History of cataract surgery History of vasectomy History of arthroscopy of left knee History of breast mammoplasty Family History Father Skin cancer Mother Breast cancer Mouth cancer Hypertension Maternal Aunt Lung cancer Brother In good health Son In good health Son In good health Daughter In good health Maternal Grandfather Myocardial infarct Social History Housing: House Alcohol intake: current Alcohol intake frequency: a few times a month Patient Tobacco Use Status: Never used Tobacco Tobacco use type: Cigarette Years Smoked: stopped 2013 e-Cigarette/Vaping Use: Never Used Second Hand Smoke Exposure: Yes service: No Current occupational status: employed 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 Current occupational exposures/hazards: No Cognitive needs: No Hearing needs: No Vision needs: Yes Physical Exam Neck Other: Posterior neck wound was clean dry and intact healing very well Assessment & Plan Assessment & Plan (1) Postop check: Code(s): Z09 - Encounter for follow-up examination after completed treatment for conditions other than malignant neoplasm Category: Surgical Plan Patient has been given local instructions and will otherwise follow-up p.r.n.. All questions answered Coding Level of Care Code Global (23315) Diagnoses Postop check Z09
== END 2024-08-11 11:38 | disposition home or self-care (01) ==
PROVIDERS: PCP Internal Medicine; Visit Provider Surgery
DX: Z09 Encounter for follow-up examination after completed treatment for conditions other than malignant neoplasm (principal)
CPT/HCPCS: 99024

== ENCOUNTER → 2024-08-11 11:31 | Outpatient (BNVA) | payer BC, SELFPAY | PROVIDERS: PCP Internal Medicine; Visit Provider Surgery ==

== ENCOUNTER 2024-09-29 06:29 | Outpatient (REF) | payer BC, SELFPAY ==
[2024-09-29 08:40] LABS: Alanine Aminotransferase 73 U/L (0-40); Albumin Level 4.3 g/dL (3.5-5.0); Alkaline Phosphatase 69 U/L (39-117); Anion Gap 15 (12-20); Aspartate Amino Transferase 37 U/L (5-37); Bilirubin Total 0.3 mg/dL (0.0-1.0); Blood Urea Nitrogen 12 mg/dL (9-16); Calcium 9.4 mg/dL (8.4-10.2); Carbon Dioxide 25 mmol/L (22-29); Chloride 104 mmol/L (96-108); Cholesterol 148 mg/dL (<200); Estimated Glomerular Filt Rate > 60; Glucose Random 267 mg/dL (60-115); HDL Cholesterol 38 mg/dL (>40); LDL Cholesterol Calculated 68 mg/dL (<100); Potassium 4.1 mmol/L (3.3-5.1); Sodium 140 mmol/L (135-145); Total Protein 6.8 g/dL (6.5-8.0); Triglycerides 213 mg/dL (<150)
== END 2024-09-29 06:30 | disposition home or self-care (01) ==
LOC: HO.LAB 06:29
PROVIDERS: PCP Internal Medicine; Visit Provider Internal Medicine
DX: E78.00 Pure hypercholesterolemia, unspecified (principal)
CPT/HCPCS: 36415; 80053; 80061

== ENCOUNTER 2024-10-13 07:52 | Outpatient (AMB) | payer BC, SELFPAY ==
[2024-10-13 07:58] VITALS: BP 128/70; PULSE 77; O2SAT 99; BMI 34.3
--- NOTE | 2024-10-13 07:58 | A.OFFPC_ITS ---
Vital Signs 10/13/24 07:58 Height 5 ft 11 in Weight 246 lb 0.2 oz BMI 34.3 BP 128/70 Blood Pressure Location Lt brachial Position Sitting Pulse 77 Pulse Source Pulse Oximeter Pulse Oximetry (%) 99 Oxygen Delivery Method Room Air Intake Visit Reasons: ANNUAL Allergies bee pollen [BEE STINGS] Allergy (Unknown, Verified 10/13/24 08:13) SWELLING WASPS Allergy (Unknown, Uncoded 10/13/24 08:13) SWELLING Medication List - Last Reconciled 10/13/24 by Felicity Mathews PA-C albuterol sulfate 2.5 mg inhalation Q4-6H PRN albuterol sulfate 90 mcg/actuation 1 - 2 puffs PO Q4H PRN alprazolam 0.25 mg PO BID PRN citalopram 40 mg PO DAILY epinephrine (EpiPen 2-Joni) 0.3 mg (0.3 mL) IM Q4H PRN flash glucose scanning reader ([employer] Javed 2 [place]) As directed flash glucose sensor every 14 days flash glucose sensor (FreeStyle Javed 2 Sensor kit) As directed glipizide 5 mg PO BID 30 days lisinopril 5 mg PO DAILY 90 days semaglutide (Ozempic) 1 mg (0.75 mL) subcut QWEEK simvastatin 20 mg PO QPM tadalafil 20 mg PO DAILY 90 days Tobacco use date assessed: 07/21/24 Dental Screening Dental Screen Date: 07/21/24 Did you have a dental visit in the last 12 months?: Yes Did you have a dental problem in the last 6 months where you did not have access to dental care?: No Was dental information given to patient?: Patient has dentist HPI ANNUAL HPI Details 53-year-old obese male with diabetes tyesha litus, hypercholesterolemia, hypertension, asthma, generalized anxiety disorder, GERD last seen by Dr. Hsieh June 2024 coming in for annual exam.? In review of the notes, patient was seen by General surgery for removal of sebaceous cyst doing well postoperatively.? Annual eye exam completed with [facility]. Patient states he will be scheduled to have a right hip replacement with Dr. Torres in October as long as his A1c is acceptable. His colonoscopy was last done in 2022 tubular adenoma follow up in 3-5 years. He has no acute concerns today. REPLACED BY [facility] Medical History Diabetic polyneuropathy associated with type 2 diabetes mellitus Diabetic nephropathy associated with type 2 diabetes mellitus Renal calculi Diverticulitis Irritable bowel syndrome Fatty liver GERD (gastroesophageal reflux disease) Carpal tunnel syndrome Erectile dysfunction Obesity (BMI 30-39.9) Hypertension Asthma Hypercholesterolemia Vitamin D deficiency Type 2 diabetes mellitus with hyperglycemia Surgical History History of cataract surgery History of vasectomy History of arthroscopy of left knee History of breast mammoplasty Family History Father Skin cancer Mother Breast cancer Mouth cancer Hypertension Maternal Aunt Lung cancer Brother In good health Son In good health Son In good health Daughter In good health Maternal Grandfather Myocardial infarct Social History Housing: House Alcohol intake: current Alcohol intake frequency: a few times a month Patient Tobacco Use Status: Current someday Tobacco user Tobacco use type: Cigarette e-Cigarette/Vaping Use: Never Used Second Hand Smoke Exposure: Yes service: No Current occupational status: employed Current occupation: [employer] Current occupational exposures/hazards: No Cognitive needs: No Hearing needs: No Vision needs: Yes Questionnaire PHQ-9 Over the last 2 weeks, how often have you been bothered by any of the following problems? 1. Little interest or pleasure in doing things: not at all 2. Feeling down, depressed, or hopeless: not at all 3. Trouble falling or staying asleep, or sleeping too much: not at all 4. Feeling tired or having little energy: several days 5. Poor appetite or overeating: not at all 6. Feeling bad about yourself - or that you are a failure or have let yourself or your family down: not at all 7. Trouble concentrating on things, such as reading the newspaper or watching television: not at all 8. Moving or speaking so slowly that other people could have noticed. Or the opposite - being so fidgety or restless that you have been moving around a lot more than usual: several days 9. Thoughts that you would be better off or of hurting yourself in some way: not at all Total score: 2 Depression Screening Interpretation: Negative Depression Screening Done: Yes 41636 - PHQ-9 Billing: Yes Source: Developed by Drs. Rudy Brorero, Carlotta Gaxiola, Rohan Jenkins and colleagues, with an educational tracee from [employer]. Thrive Questionnaire Date Thrive assessed: 10/06/24 I am a: Patient What is your living situation today?: I have a steady place to live Within the past 12 months, did the food you bought not last and you didn't have the money to get more?: Often true Within the past 12 months, did you worry whether your food would run out before you got money to buy more?: Often true Do you have trouble paying for medicines?: Yes Do you have trouble getting transportation to medical appointments?: No Do you have trouble paying your heating and electricity bill?: No Do you have trouble taking care of your child, family member or friend?: No Do you have trouble with day-to-day activities such as bathing, preparing meals, shopping, managing finances, etc.?: Yes Are you currently unemployed and looking for a job?: No Are you interested in more education?: No Please select the resources that you would like help with: Food and Paying for medicine Currently or been in a relationship where the following occur: No concerns reported THRIVE Score: 2 AUDIT C Alcohol Use Questionnaire (AUDIT-C) 1. How often do you have a drink containing alcohol?: Monthly or less 2. How many drinks containing alcohol do you have on a typical day when you are drinking?: 1 or 2 3. How often do you have six or more drinks on one occasion?: Never Total Score: 1 STORMY-7 AMB Questionnaire STORMY-7 Date STORMY - 7 assessed: 07/21/24 Feeling nervous, anxious, or on edge: 1 = Several days Not being able to stop or control worryin = Several days Worrying too much about different things: 1 = Several days Trouble relaxin = Several days Being so restless that it is hard to sit still: 0 = Not at all Becoming easily annoyed or irritable: 0 = Not at all Feeling afraid as if something awful might happen: 0 = Not at all Total STORMY-7 score (0-4 normal; 5-9 mild; 10-14 moderate; 15-21 severe): 4 Source: Developed by Drs. Rudy Borrero, Carlotta Gaxiola, Rohan Jenkins and colleagues, with an educational tracee from [employer]. STORMY-7 Assessment Billing STORMY-7 Assessment Tool: STORMY-7 Assessment 08992 Review of Systems Const Denies body aches, Denies fatigue, Denies fever(s), Denies frequent falls, Denies headache(s) and Denies weakness Eyes Reports no additional complaints, Denies change in vision and Reports requires corrective lenses ENT Denies dysphagia, Denies dizziness, Denies facial pain, Denies headache(s), Denies nasal congestion and Denies odynophagia Card Denies chest pain, Denies syncope, Denies irregular heart rhythm, Denies leg edema, Denies lightheadedness and Denies dyspnea Resp Denies cough and Denies dyspnea GI Denies abdominal pain, Denies constipation, Denies dysphagia, Denies dyspepsia, Denies diarrhea, Denies nausea, Denies odynophagia and Denies vomiting Denies dysuria, Denies urinary frequency, Denies urinary hesitancy and Denies urinary urgency Musc Details: bilateral hip pain and bilateral knee pain Denies back pain and Denies myalgias Skin/Breast Reports system reviewed and no additional complaints, except as documented Neuro Denies dizziness, Denies syncope, Denies frequent falls, Denies headache(s) and Denies weakness Psych Reports no additional complaints Endo Denies fatigue Physical exam (Primary Care) Vital Signs: Last Vital Signs Pulse 77 10/13/24 07:58 BP 128/70 10/13/24 07:58 Pulse Ox 99 10/13/24 07:58 Oxygen Delivery Method Room Air 10/13/24 07:58 BMI result Body Mass Index 34.3 Tobacco/Smoking Status: Tobacco use Status Tobacco use date assessed 07/21/24 10/13/24 08:02 Patient Tobacco Use Status Never used Tobacco 10/13/24 08:02 Tobacco use type Cigarette 10/13/24 08:02 e-Cigarette/Vaping Use Never Used 10/13/24 08:02 PHQ-9: PHQ-9 Score PHQ-9: Total score 2 10/13/24 08:02 Depression Screening Interpretation: Negative Thrive Assessment: Date of Thrive Assessment Date Thrive assessed 10/06/24 10/13/24 08:02 Currently or been in a relationship where the following occur: No concerns reported Const General: cooperative, healthy appearing, comfortable and no acute distress Orientation/consciousness: patient oriented x3 [facility] Head: Yes normocephalic Ears: hearing grossly normal bilaterally, external ears normal, TM's normal bilaterally and EAC's normal General nose exam: Normal external nose present Face and sinus: Yes normal facial exam and Yes sinuses nontender Mouth: Normal oral and palatal mucosa present and tongue normal Throat: Yes posterior oropharynx normal Eyes General: appearance normal, both eyes and all related structures Conjunctivae: conjunctivae normal Pupils: Equal, round and reactive pupils present EOM: EOMs intact bilaterally and No Nystagmus present Neck Neck: Yes normal visual inspection, Yes full ROM and Yes no lymphadenopathy Chest Chest palpation & inspection: normal inspection of the chest Resp Effort & Inspection: normal respiratory effort Auscultation: clear to auscultation bilaterally, no crackles, no rales, no rhonchi, no wheezes and breath sounds present Cardio Rate: regular rate Rhythm: regular rhythm Peripheral pulses: radial pulses present and dorsalis pedis present GI Inspection: Yes normal to inspection and No Abdominal wall edema Palpation (GI): Soft to palpation, not firm and nontender Auscultation: normal bowel sounds Rectal Exam - Male: Yes deferred General: Yes no CVA tenderness Back/Spine/Pelvis Back: no CVA tenderness Skin General skin exam: no rashes or lesions noted Neuro General: patient oriented x3 Cranial nerves: Yes Equal, round and reactive pupils present, Yes Midline tongue present, Yes Ability to bilaterally elevate shoulders present and No Nystagmus present Gait exam (Neuro): Normal gait present Extrem General: Yes normal to inspection, Yes full ROM, No no pedal edema and No edema Psych Speech and movement: Normal speech and movement present Affect: normal affect Insight: Good insight present (Psych) Judgement: Good judgement present (Psych) Results AMB Hemoglobin A1c AMB Hemoglobin A1c 9.3 % Last Edit by SHERWIN Ryan on 10/13/24 08:18 Coding Level of Care Code Est Pt Prev Care 40-64y(60022) Diagnoses Tubular adenoma of colon D12.6 Erectile dysfunction associated with type 2 diabetes mellitus E11.69; N52.1 GERD (gastroesophageal reflux disease) K21.9 Annual physical exam Z00.00 Osteoarthritis of right hip M16.11 Generalized anxiety disorder F41.1 Diabetic polyneuropathy associated with type 2 diabetes mellitus E11.42 Diabetic nephropathy associated with type 2 diabetes mellitus E11.21 Obesity (BMI 30-39.9) E66.9 Essential hypertension I10 Hypertension type: essential hypertension Mild intermittent asthma without complication J45.20 Asthma severity: mild Asthma persistence: intermittent Asthma complication type: uncomplicated Hypercholesterolemia E78.00 Type 2 diabetes mellitus with hyperglycemia, with long-term current use of i nsulin E11.65; Z79.4 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 (2) Erectile dysfunction associated with type 2 diabetes mellitus: Code(s): E11.69 - Type 2 diabetes mellitus with other specified complication; N52.1 - Erectile dysfunction due to diseases classified elsewhere Category: Medical Plan: Continue on current medication. (3) GERD (gastroesophageal reflux disease): Code(s): K21.9 - Gastro-esophageal reflux disease without esophagitis Category: Medical Plan: Avoid trigger foods such as citrus, tomato products, soda, caffeine, spicy foods and other foods that may be irritating to your stomach. Avoid laying flat 3-4 hours after eating and elevate the head of the bed 30 degrees to prevent acid from moving into the esophagus. (4) Annual physical exam: Code(s): Z00.00 - Encounter for general adult medical examination without abnormal findings Category: Medical Plan: Patient is up-to-date on all recommended routine screenings and vaccinations for his age. Follow up in 1 year. Blood work updated. (5) Osteoarthritis of right hip: Code(s): M16.11 - Unilateral primary osteoarthritis, right hip Category: Medical Plan: Patient following with [facility] has had cortisone injections in the past and is looking to be scheduled for a right hip replacement once his A1c is within an acceptable range. (6) Generalized anxiety disorder: Comment: [facility] demarioe done 06/2024 Code(s): F41.1 - Generalized anxiety disorder Category: Medical Plan: Continue on current medication. (7) Diabetic polyneuropathy associated with type 2 diabetes mellitus: Code(s): E11.42 - Type 2 diabetes mellitus with diabetic polyneuropathy Category: Medical Plan: Advised good control of diabetes and working on lowering A1c (8) Diabetic nephropathy associated with type 2 diabetes mellitus: Code(s): E11.21 - Type 2 diabetes mellitus with diabetic nephropathy Category: Medical Plan: Advised good control of diabetes and working on lowering A1c (9) Obesity (BMI 30-39.9): Code(s): E66.9 - Obesity, unspecified Category: Medical Plan: Healthy diet and regular exercise is encouraged. (10) Hypertension: Code(s): I10 - Essential (primary) hypertension Category: Medical Qualifiers: Hypertension type: essential hypertension Qualified Code(s): I10 - Essential (primary) hypertension Plan: Continue on current blood pressure medication. Avoid salt intake and encourage healthy diet and regular exercise. Blood pressure at goal today. (11) Asthma: Code(s): J45.909 - Unspecified asthma, uncomplicated Category: Medical Qualifiers: Asthma severity: mild Asthma persistence: intermittent Asthma complication type: uncomplicated Qualified Code(s): J45.20 - Mild intermittent asthma, uncomplicated Plan: Asthma currently controlled on present medications. Continue on albuterol as needed. Avoid triggers such as allergies. (12) Hypercholesterolemia: Code(s): E78.00 - Pure hypercholesterolemia, unspecified Category: Medical Plan: Avoid foods that are high in cholesterol such as red meat, fried foods, eggs and baked goods. Triglyceride goal of less than 150 and LDL goal of less than 100. Continue on simvastatin (13) Type 2 diabetes mellitus with hyperglycemia: Comment: Dr. 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 Although fruits are generally healthy they should be eaten in moderation as they are still high in sugar. Hemoglobin A1c goal of less than 7%. We will increase Ozempic to 2 mg and we will repeat CMP in 2 weeks. Plan This note was constructed using voice recognition software. While every effort has been made to ensure accuracy and channel marketing specialist, still areas may have been included sometimes these areas may affect the content or meeting of the given symptoms. Total time spent caring for the patient today was 30 minutes. This includes time spent before the visit reviewing the chart, time spent during the visit, and time spent after the visit and documentation. Orders: Orders Comprehensive Met. Panel Today Z00.00 - Encounter for general adult medical examination without abnormal findings AMB Hemoglobin A1c Today E11.65 - Type 2 diabetes mellitus with hyperglycemia, Z79.4 - USP (current) use of insulin Medications: New semaglutide (Ozempic) 2 mg (0.75 mL) subcut QWEEK 3 mL 0RF
== END 2024-10-13 08:32 | disposition home or self-care (01) ==
PROVIDERS: PCP Internal Medicine
DX: Z00.00 Encounter for general adult medical examination without abnormal findings (principal); E11.69 Type 2 diabetes mellitus with other specified complication; E11.42 Type 2 diabetes mellitus with diabetic polyneuropathy; E11.21 Type 2 diabetes mellitus with diabetic nephropathy; E11.65 Type 2 diabetes mellitus with hyperglycemia; Z79.4 Long term (current) use of insulin; E66.9 Obesity, unspecified; Z68.34 Body mass index [BMI] 34.0-34.9, adult; D12.6 Benign neoplasm of colon, unspecified; N52.1 Erectile dysfunction due to diseases classified elsewhere; K21.9 Gastro-esophageal reflux disease without esophagitis; M16.11 Unilateral primary osteoarthritis, right hip

== ENCOUNTER → 2024-10-13 07:52 | Outpatient (BNVA) | payer BC, SELFPAY | PROVIDERS: PCP Internal Medicine | DX: Z00.00 Encounter for general adult medical examination without abnormal findings (principal); E11.69 Type 2 diabetes mellitus with other specified complication; N52.1 Erectile dysfunction due to diseases classified elsewhere; E11.65 Type 2 diabetes mellitus with hyperglycemia; E11.21 Type 2 diabetes mellitus with diabetic nephropathy; E11.42 Type 2 diabetes mellitus with diabetic polyneuropathy; K21.9 Gastro-esophageal reflux disease without esophagitis; M16.11 Unilateral primary osteoarthritis, right hip; F41.1 Generalized anxiety disorder; E66.9 Obesity, unspecified; Z68.34 Body mass index [BMI] 34.0-34.9, adult; I10 Essential (primary) hypertension; J45.20 Mild intermittent asthma, uncomplicated; E78.00 Pure hypercholesterolemia, unspecified; Z79.4 Long term (current) use of insulin | CPT/HCPCS: 83036; 96127 ==

== ENCOUNTER 2024-12-09 13:38 | Outpatient (AMB) | payer BC, SELFPAY ==
--- NOTE | 2024-12-09 13:42 | MHC.OFFVIS ---
Intake Visit Reasons: 6M Med Review Intake Note: Patient is present for 6M MED REVIEW Urology Medication:TADALAFIL Antibiotic Allergy:NONE Blood Thinner:NONE Botanical Technical Officer Required: No Allergies bee pollen [BEE STINGS] Allergy (Unknown, Verified 12/09/24 13:43) SWELLING WASPS Allergy (Unknown, Uncoded 12/09/24 13:43) SWELLING HPI Comments Details: Bob is a very pleasant male. He is a patient of Dr Hsieh. They are seen in the office today for the following urologic conditions. - erectile dysfunction Six-month follow-up high-dose daily tadalafil Maintain high-dose daily tadalafil At 20 mg on demand Discussed penile constriction band and pump Partner had breast cancer therapy with tamoxifen. Recommend Julva cream and silicon lubrication Erectile dysfunction: Type 2 diabetic Daily tadalafil successful - Continue with 20 mg dosage He presents today for for continued evaluation and management of erectile dysfunction. Symptoms have been present for/since Ongoing. Procedure(s)/Diagnosis causing dysfunction include diabetes insulin-dependent. Current treatment includes Cialis/tadalafil daily. At this time he experiences erections are partial and insufficient for vaginal penetration, that undergo rapid detumesence after penetration, BROOKE 8-11 Moderate ED 8/20 , are full, rigid and adequate for vaginal penetration, that last until ejaculation, BROOKE 17-21 Mild ED. Nocturnal erections do occur - intermittently. Currently they are in a stable relationship Associated problems hypertension No diabetes Yes Insulin-dependent since 2014 dyslipidemia Yes Overall he is satisfied with the current management. Therapeutic plan includes increasing dose of oral medication - trial of daily tadalafil with on demand sildenafil [facility] Medical History Diabetic polyneuropathy associated with type 2 diabetes mellitus Diabetic nephropathy associated with type 2 diabetes mellitus Renal calculi Diverticulitis Irritable bowel syndrome Fatty liver GERD (gastroesophageal reflux disease) Carpal tunnel syndrome Erectile dysfunction Obesity (BMI 30-39.9) Hypertension Asthma Hypercholesterolemia Vitamin D deficiency Type 2 diabetes mellitus with hyperglycemia Surgical History History of cataract surgery History of vasectomy History of arthroscopy of left knee History of breast mammoplasty Family History Father Skin cancer Mother Breast cancer Mouth cancer Hypertension Maternal Aunt Lung cancer Brother In good health Son In good health Son In good health Daughter In good health Maternal Grandfather Myocardial infarct Social History Housing: House Alcohol intake: current Alcohol intake frequency: a few times a month Patient Tobacco Use Status: Current someday Tobacco user Tobacco use type: Cigarette e-Cigarette/Vaping Use: Never Used Second Hand Smoke Exposure: Yes service: No Current occupational status: employed Current occupation: [employer] Current occupational exposures/hazards: No Cognitive needs: No Hearing needs: No Vision needs: Yes Review of Systems Const Denies chills and Denies fever(s) Card Reports no additional complaints and Denies syncope Resp Denies cough GI Denies abdominal pain and Denies heartburn Reports as per HPI and Denies change in libido Neuro Denies syncope Psych Denies change in libido Endo Denies change in libido Physical Exam Const General: cooperative, healthy appearing, comfortable and no acute distress Orientation/consciousness: patient oriented x3 HEENT Face and sinus: Yes normal facial exam Mouth: moist mucous membranes Neck Neck: Yes normal visual inspection, Yes full ROM and Yes trachea midline Chest Chest palpation & inspection: normal inspection of the chest Resp Effort & Inspection: normal respiratory effort, able to speak in complete sentences and no respiratory distress GI Inspection: Yes normal to inspection Back/Spine/Pelvis Cervical Spine: normal cervical lordosis Thoracic/Lumbar Spine: thoracic and lumbar spine normal to inspection Skin General skin exam: no rashes or lesions noted Neuro General: patient oriented x3, gait normal, tone normal and moves all extremities Extrem General: Yes normal to inspection and Yes capillary refill normal Assessment & Plan Assessment & Plan (1) Renal calculi: Comment: September 20182022 Code(s): N20.0 - Calculus of kidney Category: Medical (2) Erectile dysfunction associated with type 2 diabetes mellitus: Code(s): E11.69 - Type 2 diabetes mellitus with other specified complication; N52.1 - Erectile dysfunction due to diseases classified elsewhere Category: Medical Plan Six-month follow-up office Patient Instructions: Imaging studies, laboratory and physical exam results were discussed and reviewed in detail. No major barriers to patient understanding were identified. An opportunity to ask questions regarding the treatment plan was provided. All questions were answered. The patient expressed understanding and agreement with the above treatment plan. The patient is aware they should contact our office by phone for worsening of their current condition or the appearance of new urologic symptoms. Compliance is encouraged with any medications and followup testing that is ordered. It is a privilege to participate in the urologic care of your patient. If you have any questions or concerns regarding treatment for the above conditions, or other urologic issues, please do not hesitate to contact me. The office telephone contact is [phone]. This note is constructed using voice recognition software. While every effort has been made to ensure accuracy senior mobile solutions architect errors may have been included. Yours sincerely, Dr Gigi Gregory MD, [facility] - Urology Providers of Expert, Compassionate Care for the Genitourinary System Coding Level of Care Code Est Pt Level 4 (84697) Diagnoses Renal calculi N20.0 Erectile dysfunction associated with type 2 diabetes mellitus E11.69; N52.1
== END 2024-12-09 14:35 | disposition home or self-care (01) ==
PROVIDERS: PCP Internal Medicine; Visit Provider Urology
DX: N20.0 Calculus of kidney (principal); E11.69 Type 2 diabetes mellitus with other specified complication; N52.1 Erectile dysfunction due to diseases classified elsewhere
CPT/HCPCS: 99214

== ENCOUNTER → 2024-12-09 13:38 | Outpatient (BNVA) | payer BC, SELFPAY | PROVIDERS: PCP Internal Medicine; Visit Provider Urology ==

== ENCOUNTER 2025-01-13 08:12 | Outpatient (AMB) | payer BC, SELFPAY ==
--- OUTSIDE RECORDS SUMMARY | 2025-01-13 08:16 | XMS_ITS | Patient Health Record ---
Author Organization [facility] Address [address] [place] [address] Care Team Providers Care Manager Vehicle Name Role Phone Beatris Hsieh Primary Care Provider Viet Friedman Unavailable [phone] Allergies No Known Allergies Reason For Referral No Information Medications Medication SIG (Take, Route, Frequency, Duration) Notes Start Date End Date Status Tadalafil 10 MG 1 tablet as needed O rally for 30 day(s) Active Trulicity 3 MG/0.5ML as directed Subcutaneous Active Simvastatin 20 MG 1 tablet in the even ing Orally Once a day for 30 day(s) Active Synjardy XR 12.5-1000 MG 1 tablet with b reakfast Orally Once a day for 30 day(s) Active Citalopram Hydrobromide 40 MG 0.5 tablet Orally Once a day for 30 day(s) Active Lisinopril 5 MG 1 tablet Orally Once a day for 30 day(s) Active Social History Tobacco Use: Social History Observation Description Date Details (start date - stop date) Never Smoker NA - NA Tobacco Use/Smoking Question Answer Notes Are you a: nonsmoker Additional Findings: Tobacco Non-User Current no n-smoker Alcohol Screen Question Answer Notes Did you have a drink contain ing alcohol in the past year? Yes How often did you have a dri nk containing alcohol in the past year? Monthly or less (1 point) Points 1 Interpretation Negative Tobacco use other than smoking: Question Answer Notes Are you an other tobacco user? No Problems Problem Type SNOMED Code ICD Code Onset Dates Problem Status W/U Status Risk Notes Problem Plantar fascial fibromatosis (96779315) Plantar fascial fibromatosis (M72.2) Active confirmed Problem Type 2 diabetes mellitus without complication (689491919) Type 2 diabetes mellitus without complication (E11.9) Active confirmed Plan Of Treatment Pending Test Test Name Order Date X ray : Foot, left 3V 06/23/2022 X ray : Foot, right 3V 06/23/2022 Insurance Providers Payer Name Payer Address Payer Phone Subscriber Number Group Number Insured Name Patient Relationship to Insured Coverage Start Date Coverage End Date [facility] [address] [place] [address] [id number] Bob Knowles Self - patient is the insured Medical (General) History Medical History History ICD Code asthma type II diabetes Diverticulosis CAD Surgical History Surgery Date(Month/Year)
--- OUTSIDE RECORDS SUMMARY | 2025-01-13 08:16 | XMS_ITS | Patient Health Record ---
Author Organization [facility] Address [address] [place] [id number] Care Team Providers Care Guest Room Inspector Name Role Phone Beatris Hsieh MD Primary Care Provider Harris Carpenter Jr Unavailable [phone] ALLERGIES Allergen (clinical drug ingredient) Drug/Non Drug Allergy documented on EMR Reaction Allergy Type Onset Date Status Bee Sting Unknown Allergy Active Wasp Venom Unknown Drug Allergy Active REASON FOR REFERRAL No Information MEDICATIONS Medication SIG (Take, Route, Frequency, Duration) Notes Start Date End Date Status Tadalafil 10 MG TAKE ONE TABLET BY M OUTH DAILY FOR SEXUAL ACTIVITY Oral for 90 Active Synjardy XR 12.5-1000 MG Oral for 30 Active Simvastatin 20 MG Oral for 30 Active MiraLax (colon prep) 17 GM/SCOOP mixed with Gatorade or Crystal Light Orally begin at 5:00 p.m. the day before the procedure for 1 day 12/07/2022 Active Citalopram Hydrobromide 40 MG TAKE 1 TABLET BY MOUTH EVERY DAY Oral for 30 Active Lisinopril 5 MG TAKE 1 TABLET BY DIETER TH EVERY DAY FOR 90 DAYS Oral for 30 Active Trulicity 3 MG/0.5ML Subcutaneous for 28 Active IMMUNIZATIONS Vaccine Route Administration Date Status Comme nts Influenza Unknown 09/26/2022 Administered SOCIAL HISTORY Tobacco Use: Social History Observation Description Date Details (start date - stop date) Current Smoker NA - NA Sex Assigned At : Social History Observation Description Sex Assigned At Unknown Tobacco Use/Smoking Question Answer Notes Patient is a current smoker How often do you smoke cigarettes? some days, bu t not every day How many cigarettes a day do you smoke? 5 or les s Alcohol Screen Question Answer Notes Did you have a drink contain ing alcohol in the past year? Yes How often did you have a dri nk containing alcohol in the past year? Monthly or less (1 point) How many drinks did you have on a typical day when you were drinking in the past year? 1 or 2 drinks (0 point) How often did you have 6 or more drinks on one occasion in the past year? Never (0 point) Points 1 Interpretation Negative PROBLEMS Problem Type ICD Code Onset Dates Problem Status W/U Status Risk SNOMED Code Notes Problem Colon cancer screening (Z12.11) Active confirmed 661261703 Problem Gastroesophageal reflux disease without esophagitis (K21.9) Active confirmed [id number] PLAN OF TREATMENT Future Test Test Name Order Date COLONOSCOPY 12/07/2022 Insurance Providers Payer Name Payer Address Payer Phone Subscriber Number Group Number Insured Name Patient Relationship to Insured Coverage Start Date Coverage End Date [facility] [address] [place] [address] [id number] TEN PEREIRA Self - patient is the insured MEDICAL (GENERAL) HISTORY Medical History History ICD Code 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
--- NOTE | 2025-01-13 08:22 | MHC.PC.OV ---
Vital Signs 01/13/25 08:23 Height 5 ft 11 in Weight 239 lb BMI 33.3 BP 120/78 Blood Pressure Location Lt brachial Position Sitting Pulse 86 Pulse Source Pulse Oximeter Temp 98.2 F Temp Source Temporal Artery Scan Pulse Oximetry (%) 96 Oxygen Delivery Method Room Air Intake Visit Reasons: f/u DM Intake Note: Patient is here to follow up on DM. Sustainability Project Manager Required: No Dietitian Teacher: Not Required per policy Accompanied by: Self / Same As Patient Allergies bee pollen [BEE STINGS] Allergy (Unknown, Verified 01/13/25 08:23) SWELLING WASPS Allergy (Unknown, Uncoded 01/13/25 08:23) SWELLING Medication List - Last Reconciled 01/13/25 by Felciity Mathews PA-C albuterol sulfate 2.5 mg inhalation Q4-6H PRN albuterol sulfate 90 mcg/actuation 1 - 2 puffs PO Q4H PRN citalopram 40 mg PO DAILY epinephrine (EpiPen 2-Joni) 0.3 mg (0.3 mL) IM Q4H PRN glipizide 5 mg PO BID 30 days lisinopril 5 mg PO DAILY 90 days semaglutide (Ozempic) 2 mg (0.75 mL) subcut QWEEK simvastatin 20 mg PO QPM tadalafil 20 mg PO DAILY Tobacco use date assessed: 01/13/25 Dental Screening Dental Screen Date: 01/13/25 Did you have a dental visit in the last 12 months?: Yes Did you have a dental problem in the last 6 months where you did not have access to dental care?: No Was dental information given to patient?: Patient has dentist HPI f/u DM HPI Details 54-year-old obese male with diabetes mellitus, hypercholesterolemia, hypertension, asthma, generalized anxiety disorder, GERD last seen 09/2024 coming in for follow up.? Patient was seen by Urology 12/10/2024 advised to continue on high dose daily tadalafil and 20 as needed follow up in 6 months. Patient tells us today he has been working on cutting out potatoes from his diet. He states with the holidays he did have an issue with sweets has been working on weight loss and exercise as well. His insulin was discontinued due to his [employer] license restrictions. He has a few concerns today the 1st being he is having multiple palpable nodules in the left armpit that are not painful and have not been growing. He also mentions having a possible wart or callus on the left 4th digit the foot. Lastly he mentions wanting to try smoking cessation has tried nicotine replacement therapy in the past without good effect. [facility] Medical History Diabetic polyneuropathy associated with type 2 diabetes mellitus Diabetic nephropathy associated with type 2 diabetes mellitus Renal calculi Diverticulitis Irritable bowel syndrome Fatty liver GERD (gastroesophageal reflux disease) Carpal tunnel syndrome Erectile dysfunction Obesity (BMI 30-39.9) Hypertension Asthma Hypercholesterolemia Vitamin D deficiency Type 2 diabetes mellitus with hyperglycemia Surgical History History of cataract surgery History of vasectomy History of arthroscopy of left knee History of breast mammoplasty Family History Father Skin cancer Mother Breast cancer Mouth cancer Hypertension Maternal Aunt Lung cancer Brother In good health Son In good health Son In good health Daughter In good health Maternal Grandfather Myocardial infarct Social History Housing: House Alcohol intake: current Alcohol intake frequency: a few times a month Patient Tobacco Use Status: Current someday Tobacco user Tobacco use type: Cigarette Cigarette Packs Per Day: 1 Cigarettes Per Day: 12 e-Cigarette/Vaping Use: Never Used Second Hand Smoke Exposure: Yes service: No Current occupational status: employed 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 1. Little interest or pleasure in doing things: not at all 2. Feeling down, depressed, or hopeless: not at all 3. Trouble falling or staying asleep, or sleeping too much: not at all 4. Feeling tired or having little energy: not at all 5. Poor appetite or overeating: not at all 6. Feeling bad about yourself - or that you are a failure or have let yourself or your family down: not at all 7. Trouble concentrating on things, such as reading the newspaper or watching television: not at all 8. Moving or speaking so slowly that other people could have noticed. Or the opposite - being so fidgety or restless that you have been moving around a lot more than usual: not at all 9. Thoughts that you would be better off or of hurting yourself in some way: not at all Total score: 0 Depression Screening Interpretation: Negative Depression Screening Done: Yes Source: Developed by Drs. Rudy Borrero, Carlotta Gaxiola, Rohan Jenkins and colleagues, with an educational tracee from [employer]. Thrive Questionnaire Date Thrive assessed: 01/13/25 I am a: Patient What is your living situation today?: I have a steady place to live Within the past 12 months, did the food you bought not last and you didn't have the money to get more?: Often true Within the past 12 months, did you worry whether your food would run out before you got money to buy more?: Often true Do you have trouble paying for medicines?: Yes Do you have trouble getting transportation to medical appointments?: No Do you have trouble paying your heating and electricity bill?: No Do you have trouble taking care of your child, family member or friend?: No Do you have trouble with day-to-day activities such as bathing, preparing meals, shopping, managing finances, etc.?: Yes Are you currently unemployed and looking for a job?: No Are you interested in more education?: No Currently or been in a relationship where the following occur: No concerns reported THRIVE Score: 2 AUDIT C Alcohol Use Questionnaire (AUDIT-C) 1. How often do you have a drink containing alcohol?: Monthly or less 2. How many drinks containing alcohol do you have on a typical day when you are drinking?: 1 or 2 Total Score: 1 STORMY-7 AMB Questionnaire STORMY-7 Date STORMY - 7 assessed: 01/13/25 Feeling nervous, anxious, or on edge: 0 = Not at all Not being able to stop or control worryin = Not at all Worrying too much about different things: 0 = Not at all Trouble relaxin = Not at all Being so restless that it is hard to sit still: 0 = Not at all Becoming easily annoyed or irritable: 0 = Not at all Feeling afraid as if something awful might happen: 0 = Not at all Total STORMY-7 score (0-4 normal; 5-9 mild; 10-14 moderate; 15-21 severe): 0 Source: Developed by Drs. Rudy Borrero, Carlotta Gaxiola, Rohan Jenkins and colleagues, with an educational tracee from [employer]. Review of Systems Const Denies body aches, Denies chills, Denies fever(s), Denies headache(s) and Denies poor appetite Eyes Reports no additional complaints ENT Denies dizziness and Denies headache(s) Card Denies chest pain, Denies syncope, Denies edema, Denies irregular heart rhythm, Denies lightheadedness and Denies dyspnea Resp Denies cough and Denies dyspnea GI Denies abdominal pain, Denies constipation, Denies diarrhea, Denies nausea and Denies vomiting Reports no additional complaints Musc Reports no additional complaints and Denies abnormal gait Skin/Breast Reports system reviewed and no additional complaints, except as documented Neuro Denies abnormal gait, Denies dizziness, Denies syncope and Denies headache(s) Psych Reports no additional complaints Physical exam (Primary Care) Vital Signs: Last Vital Signs Temp 98.2 F 01/13/25 08:23 Pulse 86 01/13/25 08:23 BP 120/78 01/13/25 08:23 Pulse Ox 96 01/13/25 08:23 Oxygen Delivery Method Room Air 01/13/25 08:23 BMI result Body Mass Index 33.3 Tobacco/Smoking Status: Tobacco use Status Tobacco use date assessed 01/13/25 01/13/25 08:23 Patient Tobacco Use Status Current someday Tobacco 01/13/25 08:23 Tobacco use type Cigarette 01/13/25 08:23 e-Cigarette/Vaping Use Never Used 01/13/25 08:23 Are you ready to quit: Yes Tobacco cessation counseling provided: Yes Items discussed: Other Relapse Prevention: discussed negative mood or depression after quitting, weight gain after smoking is common and discussed dietary, exercise and/or lifestyle changes Number of minutes spent counselin CPT code: 06467 - 4-10 Minutes PHQ-9: PHQ-9 Score PHQ-9: Total score 0 01/13/25 08:49 Depression Screening Interpretation: Negative Thrive Assessment: Date of Thrive Assessment Date Thrive assessed 01/13/25 01/13/25 08:23 Currently or been in a relationship where the following occur: No concerns reported Const General: cooperative, healthy appearing, comfortable and no acute distress Orientation/consciousness: patient oriented x3 HENMT Head: Yes normocephalic Ears: hearing grossly normal bilaterally General nose exam: Normal external nose present Eyes General: appearance normal, both eyes and all related structures Conjunctivae: conjunctivae normal Neck Neck: Yes full ROM and Yes no lymphadenopathy Resp Effort & Inspection: normal respiratory effort Auscultation: clear to auscultation bilaterally, no crackles, no rales, no rhonchi and no wheezes Cardio Rate: regular rate Rhythm: regular rhythm Skin Other: 4-5 small, palpable, nontender freely mobile masses with smooth edges in the left axilla General skin exam: no rashes or lesions noted Neuro General: patient oriented x3 Gait exam (Neuro): Normal gait present Extrem General: Yes normal to inspection, Yes full ROM and No edema Psych Affect: normal affect Attitude: cooperative Insight: Good insight present (Psych) Judgement: Good judgement present (Psych) Results AMB Hemoglobin A1c AMB Hemoglobin A1c 10.9 % Last Edit by SHERWIN Escalera on 01/13/25 08:56 Results Reviewed Results Reviewed: Laboratory Last Values Hgb A1c (Clinic) 10.9 % (4.0-6.0) H 01/13/25 08:24 Coding Level of Care Code Est Pt Level 4 (12741) Diagnoses Erectile dysfunction associated with type 2 diabetes mellitus E11.69; N52.1 GERD (gastroesophageal reflux disease) K21.9 Diabetic polyneuropathy associated with type 2 diabetes mellitus E11.42 Obesity (BMI 30-39.9) E66.9 Mild intermittent asthma without complication J45.20 Asthma complication type: uncomplicated Asthma persistence: intermittent Asthma severity: mild Hypercholesterolemia E78.00 Type 2 diabetes mellitus with hyperglycemia, with long-term current use of insulin E11.65; Z79.4 Diabetes mellitus fpc insulin use: with superintendent [employer] use Essential hypertension I10 Hypertension type: essential hypertension Tobacco use disorder F17.200 Lipoma D17.9 Additional Codes Vital Signs *Quality* - CPT code: 57000 - 4-10 Minutes ([id number]) Assessment & Plan Assessment & Plan (1) Erectile dysfunction associated with type 2 diabetes mellitus: Code(s): E11.69 - Type 2 diabetes mellitus with other specified complication; N52.1 - Erectile dysfunction due to diseases classified elsewhere Category: Medical Plan: Recently seen by Urology advised to continue on high dose tadalafil daily and tadalafil 20 mg as needed. Follow up in 6 months with Urology (2) GERD (gastroesophageal reflux disease): Code(s): K21.9 - Gastro-esophageal reflux disease without esophagitis Category: Medical Plan: Avoid trigger foods such as citrus, tomato products, soda, caffeine, spicy foods and other foods that may be irritating to your stomach. Avoid laying flat 3-4 hours after eating and elevate the head of the bed 30 degrees to prevent acid from moving into the esophagus. (3) Diabetic polyneuropathy associated with type 2 diabetes mellitus: Code(s): E11.42 - Type 2 diabetes mellitus with diabetic polyneuropathy Category: Medical Plan: Not currently on medical management. Continue with good glucose control to mitigate symptoms. (4) Obesity (BMI 30-39.9): Code(s): E66.9 - Obesity, unspecified Category: Medical Plan: Healthy diet and regular exercise is encouraged. (5) Asthma: Code(s): J45.909 - Unspecified asthma, uncomplicated Category: Medical Qualifiers: Asthma complication type: uncomplicated Asthma persistence: intermittent Asthma severity: mild Qualified Code(s): J45.20 - Mild intermittent asthma, uncomplicated Plan: Asthma currently controlled on present medications. Continue on albuterol as needed. Avoid triggers such as allergies. (6) Hypercholesterolemia: Code(s): E78.00 - Pure hypercholesterolemia, unspecified Category: Medical Plan: Avoid foods that are high in cholesterol such as red meat, fried foods, eggs and baked goods. Triglyceride goal of less than 150 and LDL goal of less than 100. Continue on simvastatin 20 (7) Type 2 diabetes mellitus with hyperglycemia: Comment: Dr. Nation Code(s): E11.65 - Type 2 diabetes mellitus with hyperglycemia Category: Medical Qualifiers: Diabetes mellitus fpc insulin use: with superintendent [employer] use Qualified Code(s): E11.65 - Type 2 diabetes mellitus with hyperglycemia; Z79.4 - halfway (current) use of insulin Plan: Decrease the amount of carbohydrates such as pasta, bread, rice, and potatoes and limit the amount of sweets. Although fruits are generally healthy they should be eaten in moderation as they are still high in sugar. Hemoglobin A1c goal of less than 7%. Currently on semaglutide 2 mg and glipizide 5 mg. A1c elevated 10.9% today in the office. Strongly advised patient to undergo lifestyle changes. Patient is refusing insulin due to [employer] license restrictions, Januvia was denied by insurance and patient had side effects with the Jardiance. Discussed the possibility of replacing Ozempic with Mounjaro for better glucose control which was declined. Plan to add pioglitazone to regimen and follow up in 3 months. (8) Hypertension: Code(s): I10 - Essential (primary) hypertension Category: Medical Qualifiers: Hypertension type: essential hypertension Qualified Code(s): I10 - Essential (primary) hypertension Plan: Continue on current blood pressure medication. Avoid salt intake and encourage healthy diet and regular exercise. On lisinopril 5 mg (9) Tobacco use disorder: Code(s): F17.200 - Nicotine dependence, unspecified, uncomplicated Category: Medical Plan: Patient began smoking 1-1/2 years ago and is now up to about a pack a day. He is interested in smoking cessation and has tried nicotine replacement therapy in the past without good relief. He does have concurrent depression and anxiety and is currently on citalopram. Discussed possible options including Chantix and Wellbutrin. After discussion patient opted for Wellbutrin advised take 150 mg once daily for a week and then increase to twice daily. Counseled on side effects of this medication advised patient to reach out the experiences side effects or has additional questions. (10) Lipoma: Code(s): D17.9 - Benign lipomatous neoplasm, unspecified Category: Medical Plan: Patient has multiple palpable masses in the left axilla that are freely mobile and nontender with smooth edges. Likely a lipoma versus sebaceous cyst. Referral placed to General surgery for possible removal. Plan This note was constructed using voice recognition software. While every effort has been made to ensure accuracy and digital marketing assistant, still areas may have been included sometimes these areas may affect the content or meeting of the given symptoms. Total time spent caring for the patient today was twenty minutes. This includes time spent before the visit reviewing the chart, time spent during the visit, and time spent after the visit and documentation. Orders: Orders AMB Hemoglobin A1c Today E11.42 - Type 2 diabetes mellitus with diabetic polyneuropathy Referrals General Surgery Referral D17.9 - Benign lipomatous neoplasm, unspecified Medications: New lancets (OneTouch Delica Plus Lancet) As directed; BID 100 ea 0RF blood sugar diagnostic (OneTouch Ultra Test strips) As directed; BID 100 ea 0RF bupropion HCl (smoking deter) 150 mg PO BID 90 days 180 tabs 0RF pioglitazone 15 mg PO DAILY 90 tabs 2RF blood-glucose meter (OneTouch Ultra2 Meter) As directed 1 ea 0RF
[2025-01-13 08:23] VITALS: BP 120/78; PULSE 86; TEMP 36.8; O2SAT 96; BMI 33.3
== END 2025-01-13 09:20 | disposition home or self-care (01) ==
PROVIDERS: PCP Internal Medicine
DX: E11.69 Type 2 diabetes mellitus with other specified complication (principal); N52.1 Erectile dysfunction due to diseases classified elsewhere; K21.9 Gastro-esophageal reflux disease without esophagitis; E11.42 Type 2 diabetes mellitus with diabetic polyneuropathy; E66.9 Obesity, unspecified; J45.20 Mild intermittent asthma, uncomplicated; E78.00 Pure hypercholesterolemia, unspecified; E11.65 Type 2 diabetes mellitus with hyperglycemia; Z79.4 Long term (current) use of insulin; I10 Essential (primary) hypertension; F17.200 Nicotine dependence, unspecified, uncomplicated; D17.9 Benign lipomatous neoplasm, unspecified

== ENCOUNTER → 2025-01-13 08:12 | Outpatient (BNVA) | payer BC, SELFPAY | PROVIDERS: PCP Internal Medicine | DX: E11.69 Type 2 diabetes mellitus with other specified complication (principal); N52.1 Erectile dysfunction due to diseases classified elsewhere; K21.9 Gastro-esophageal reflux disease without esophagitis; E11.42 Type 2 diabetes mellitus with diabetic polyneuropathy; E66.9 Obesity, unspecified; J45.20 Mild intermittent asthma, uncomplicated; E78.00 Pure hypercholesterolemia, unspecified; E11.65 Type 2 diabetes mellitus with hyperglycemia; I10 Essential (primary) hypertension; D17.22 Benign lipomatous neoplasm of skin and subcutaneous tissue of left arm; F17.210 Nicotine dependence, cigarettes, uncomplicated; Z79.4 Long term (current) use of insulin | CPT/HCPCS: 83036; 96127 ==

== ENCOUNTER 2025-01-29 15:16 | Outpatient (AMB) | payer BC, SELFPAY ==
[2025-01-29 15:17] VITALS: BMI 33.3
--- NOTE | 2025-01-29 15:17 | A.OFFVIS_ITS ---
Vital Signs 01/29/25 15:17 Height 5 ft 11 in Weight 239 lb 0.015 oz BMI 33.3 Intake Visit Reasons: Lipoma left axilla Intake Note: This patient presents for lipoma of the left axilla. Pt c/o; decreased in size, x3 lumps left axilla, reports no discharge. Computer Systems Support Specialist Required: No Accompanied by: Self / Same As Patient Allergies bee pollen [BEE STINGS] Allergy (Unknown, Verified 01/29/25 15:17) SWELLING WASPS Allergy (Unknown, Uncoded 01/29/25 15:17) SWELLING Medication List - Last Reconciled 01/29/25 by Tu Juarez MD albuterol sulfate 2.5 mg inhalation Q4-6H PRN albuterol sulfate 90 mcg/actuation 1 - 2 puffs PO Q4H PRN blood sugar diagnostic (Contour Next Test Strips) As directed- BID blood-glucose meter (Contour Next Gen Meter kit) As directed bupropion HCl (smoking deter) 150 mg PO BID 90 days citalopram 40 mg PO DAILY epinephrine (EpiPen 2-Joni) 0.3 mg (0.3 mL) IM Q4H PRN glipizide 5 mg PO BID 30 days lancets (OneTouch Delica Plus Lancet) As directed; BID lisinopril 5 mg PO DAILY 90 days pioglitazone 15 mg PO DAILY semaglutide (Ozempic) 2 mg (0.75 mL) subcut QWEEK simvastatin 20 mg PO QPM tadalafil 20 mg PO DAILY HPI HPI Lipoma left axilla: Details: 54-year-old male referred for a lump on the left axilla. He says he has noticed this for about a couple of months now. He thought that there may have been more than 1 but currently he feels 1 predominant lump. He describes some swelling occasionally. He denies any discharge. [facility] Medical History (Updated 01/29/25 @ 15:32 by Tu Juarez MD) Epidermal cyst Diabetic polyneuropathy associated with type 2 diabetes mellitus Diabetic nephropathy associated with type 2 diabetes mellitus Renal calculi Diverticulitis Irritable bowel syndrome Fatty liver GERD (gastroesophageal reflux disease) Carpal tunnel syndrome Erectile dysfunction Obesity (BMI 30-39.9) Hypertension Asthma Hypercholesterolemia Vitamin D deficiency Type 2 diabetes mellitus with hyperglycemia Surgical History History of cataract surgery History of vasectomy History of arthroscopy of left knee History of breast mammoplasty Family History Father Skin cancer Mother Breast cancer Mouth cancer Hypertension Maternal Aunt Lung cancer Brother In good health Son In good health Son In good health Daughter In good health Maternal Grandfather Myocardial infarct Social History Housing: House Alcohol intake: current Alcohol intake frequency: a few times a month Patient Tobacco Use Status: Current someday Tobacco user Tobacco use type: Cigarette Cigarette Packs Per Day: 1 Cigarettes Per Day: 12 e-Cigarette/Vaping Use: Never Used Second Hand Smoke Exposure: Yes service: No Current occupational status: employed Current occupation: [employer] Current occupational exposures/hazards: No Cognitive needs: No Hearing needs: No Vision needs: Yes Review of Systems Const Denies chills and Denies fever(s) Card Denies chest pain, Denies dyspnea and Denies dyspnea on exertion Resp Denies cough, Denies dyspnea and Denies dyspnea on exertion GI Denies hematochezia and Denies change in bowel habits Denies hematuria and Denies difficulty urinating Musc Denies back pain and Denies limited range of motion Neuro Denies focal weakness and Denies convulsions Psych Denies depression and Denies mood swings Physical Exam Vital Signs: BMI result Body Mass Index 33.3 Const General: comfortable and no acute distress Orientation/consciousness: patient oriented x3 Neck Neck: Yes no lymphadenopathy Chest Other: Left axilla with note of a cystic induration about 1 cm consistent with an epidermal cyst Resp Auscultation: clear to auscultation bilaterally Cardio Rhythm: regular rhythm GI Palpation (GI): Soft to palpation, nontender and no guarding Neuro General: patient oriented x3 Assessment & Plan Assessment & Plan (1) Epidermal cyst: Code(s): L72.0 - Epidermal cyst Category: Medical Plan: He has what appears to be a cystic induration consistent with an epidermal cyst on the left axilla. He wants this excised.I explained the technique of excision. I reviewed the risks including but not limited to bleeding and infections, as well as the benefits and alternatives. He understands and wants to proceed. This will be done in the office on his next visit. Coding Level of Care Code Est Pt Level 3 (92348) Diagnoses Epidermal cyst L72.0
--- OUTSIDE RECORDS SUMMARY | 2025-01-29 18:46 | XMS_ITS | Patient Health Record ---
Author Organization [facility] Address [address] [place] [id number] Care Team Providers Care Interventional Radiologist Name Role Phone Beatris Hsieh MD Primary Care Provider Harris Carpenter Jr Unavailable Allergies Allergen (clinical drug ingredient) Drug/Non Drug Allergy documented on EMR Reaction Allergy Type Onset Date Status Bee Sting Unknown Allergy Active Wasp Venom Unknown Drug Allergy Active Reason For Referral No Information Medications Medication [...] Trulicity 3 MG/0.5ML Subcutaneous for 28 Active Immunizations Vaccine Route Administration Date Status Comme nts Influenza Unknown 09/26/2022 Administered Social History Tobacco Use: Social History Observation Description Date Details (start date - stop date) Current Smoker NA - NA Tobacco Use/Smoking Question Answer Notes Patient is [...] Never (0 point) Points 1 Interpretation Negative Problems Problem Type SNOMED Code ICD Code Onset Dates Problem Status W/U Status Risk Notes Problem 690982870 Colon cancer screening (Z12.11) Active confirmed Problem [id number] Gastroesophageal reflux disease without esophagitis (K21.9) Active confirmed Plan Of Treatment Future Test Test Name Order Date COLONOSCOPY 12/07/2022 Insurance Providers Payer Name Payer Address Payer Phone Subscriber Number Group Number Insured Name Patient Relationship to Insured Coverage Start Date Coverage End Date [facility] [address] [place] [address] [id number] TEN PEREIRA Self - patient is the insured Medical (General) History Medical History History ICD Code 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
--- OUTSIDE RECORDS SUMMARY | 2025-01-29 18:46 | XMS_ITS | Patient Health Record ---
Author Organization [facility] Address [address] [place] [address] Care Team Providers Care Bellman Name Role Phone Beatris Hsieh Primary Care Provider Viet Friedman Unavailable [phone] Allergies No Known Allergies Reason For Referral [...] Status Risk Notes Problem Plantar fascial fibromatosis (18289878) Plantar fascial fibromatosis (M72.2) Active confirmed Problem Type 2 diabetes mellitus without complication (948872650) Type 2 diabetes mellitus without complication (E11.9) Active confirmed Plan Of Treatment Pending Test Test Name Order Date X ray : Foot, left 3V 06/23/2022 X ray : Foot, right 3V 06/23/2022 Insurance Providers Payer Name Payer Address Payer Phone Subscriber Number Group Number Insured Name Patient Relationship to Insured Coverage Start Date Coverage End Date [facility] [address] [place] [address] [id number] Bob Knowles Self - patient is the insured Medical (General) History Medical History History ICD Code asthma type II diabetes Diverticulosis CAD Surgical History Surgery Date(Month/Year)
== END 2025-01-29 15:36 | disposition home or self-care (01) ==
PROVIDERS: PCP Internal Medicine; Visit Provider Surgery
DX: L72.0 Epidermal cyst (principal)
CPT/HCPCS: 99213

== ENCOUNTER → 2025-01-29 15:16 | Outpatient (BNVA) | payer BC, SELFPAY | PROVIDERS: PCP Internal Medicine; Visit Provider Surgery ==

== ENCOUNTER 2025-06-10 15:30 | Outpatient (AMB) | payer BC, SELFPAY ==
--- OUTSIDE RECORDS SUMMARY | 2025-06-10 15:42 | XMS_ITS | Patient Health Record ---
Author Organization [facility] Address [address] [place] [address] Care Team Providers Care Cyber Intel Planner Name Role Phone Beatris Hsieh Primary Care Provider Viet Friedman Unavailable [phone] Allergies No Known Allergies Reason For Referral No Information Medications Medication SIG (Take, Route, Frequency, Duration) Notes Start Date End Date Status Tadalafil 10 MG 1 tablet as needed O rally; Duration: 30 day(s) Active Trulicity 3 MG/0.5ML as directed Subcutaneous Active Simvastatin 20 MG 1 tablet in the even ing Orally Once a day; Duration: 30 day(s) Active Synjardy XR 12.5-1000 MG 1 tablet with b reakfast Orally Once a day; Duration: 30 day(s) Active Citalopram Hydrobromide 40 MG 0.5 tablet Orally Once a day; Duration: 30 day(s) Active Lisinopril 5 MG 1 tablet Orally Once a day; Duration: 30 day(s) Active Social History Tobacco Use: [...] Status Risk Notes Problem Plantar fascial fibromatosis (39884356) Plantar fascial fibromatosis (M72.2) Active confirmed Problem Type 2 diabetes mellitus without complication (E11.9) Active confirmed Plan Of Treatment Pending Test Test Name Order Date X ray : Foot, left 3V 06/23/2022 X ray : Foot, right 3V 06/23/2022 Insurance Providers Payer Name Payer Address Payer Phone Subscriber Number Group Number Insured Name Patient Relationship to Insured Coverage Start Date Coverage End Date [facility] [address] [place] [address] [id number] Bob Knowles Self - patient is the insured Medical (General) History Medical History History ICD Code asthma type II diabetes Diverticulosis CAD Surgical History Surgery Date(Month/Year)
--- NOTE | 2025-06-10 15:43 | MHC.OFFVIS ---
Intake Visit Reasons: 6m follow up Intake Note: Patient is present for 6M F/U Urology Medication:TADALAFIL Antibiotic Allergy:NONE Blood Thinner:NONE Marketing Proposal Specialist Required: No Allergies bee pollen (BEE STINGS) Allergy (Unknown, Verified 06/10/25 15:44) SWELLING WASPS Allergy (Unknown, Uncoded 06/10/25 15:44) SWELLING HPI Comments Details: Bob is a very pleasant male. He is a patient of Dr Hsieh. They are seen in the office today for the following urologic conditions. - erectile dysfunction Six-month follow-up high-dose daily tadalafil Maintain high-dose daily tadalafil At 20 mg daily Add 20 mg on demand Discussed role of stress in erectile resiliency Erectile dysfunction: Type 2 diabetic Daily tadalafil successful - Continue with 20 mg dosage He presents today for for continued evaluation and management of erectile dysfunction. Symptoms have been present for/since Ongoing. Procedure(s)/Diagnosis causing dysfunction include diabetes insulin-dependent. Current treatment includes Cialis/tadalafil daily. At this time he experiences erections are partial and insufficient for vaginal penetration, that undergo rapid detumesence after penetration, BROOKE 8-11 Moderate ED 8/20 , are full, rigid and adequate for vaginal penetration, that last until ejaculation, BROOKE 17-21 Mild ED. Nocturnal erections do occur - intermittently. Currently they are in a stable relationship Associated problems hypertension No diabetes Yes Insulin-dependent since 2014 dyslipidemia Yes Overall he is satisfied with the current management. Therapeutic plan includes increasing dose of oral medication - trial of daily tadalafil with on demand sildenafil [facility] Medical History (Updated 01/29/25 @ 15:32 by Tu Juarez MD) Epidermal cyst Diabetic polyneuropathy associated with type 2 diabetes mellitus Diabetic nephropathy associated with type 2 diabetes mellitus Renal calculi Diverticulitis Irritable bowel syndrome Fatty liver GERD (gastroesophageal reflux disease) Carpal tunnel syndrome Erectile dysfunction Obesity (BMI 30-39.9) Hypertension Asthma Hypercholesterolemia Vitamin D deficiency Type 2 diabetes mellitus with hyperglycemia Surgical History History of cataract surgery History of vasectomy History of arthroscopy of left knee History of breast mammoplasty Family History Father Skin cancer Mother Breast cancer Mouth cancer Hypertension Maternal Aunt Lung cancer Brother In good health Son In good health Son In good health Daughter In good health Maternal Grandfather Myocardial infarct Social History Housing: House Alcohol intake: current Alcohol intake frequency: a few times a month Patient Tobacco Use Status: Current someday Tobacco user Tobacco use type: Cigarette Cigarette Packs Per Day: 1 Cigarettes Per Day: 12 e-Cigarette/Vaping Use: Never Used Second Hand Smoke Exposure: Yes service: No Current occupational status: employed 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 Current occupational exposures/hazards: No Cognitive needs: No Hearing needs: No Vision needs: Yes Review of Systems Const Denies chills and Denies fever(s) Card Reports no additional complaints and Denies syncope Resp Denies cough GI Denies abdominal pain and Denies heartburn Reports as per HPI and Denies change in libido Neuro Denies syncope Psych Denies change in libido Endo Denies change in libido Physical Exam Const General: cooperative, healthy appearing, comfortable and no acute distress Orientation/consciousness: patient oriented x3 HEENT Face and sinus: Yes normal facial exam Mouth: moist mucous membranes Neck Neck: Yes normal visual inspection, Yes full ROM and Yes trachea midline Chest Chest palpation & inspection: normal inspection of the chest Resp Effort & Inspection: normal respiratory effort, able to speak in complete sentences and no respiratory distress GI Inspection: Yes normal to inspection Back/Spine/Pelvis Cervical Spine: normal cervical lordosis Thoracic/Lumbar Spine: thoracic and lumbar spine normal to inspection Skin General skin exam: no rashes or lesions noted Neuro General: patient oriented x3, gait normal, tone normal and moves all extremities Extrem General: Yes normal to inspection and Yes capillary refill normal Assessment & Plan Assessment & Plan (1) Erectile dysfunction: Code(s): N52.9 - Male erectile dysfunction, unspecified Category: Medical (2) Renal calculi: Comment: September 20182022 Code(s): N20.0 - Calculus of kidney Category: Medical Plan Prescription refill Six-month follow-up Patient Instructions: This note is constructed using voice recognition software. While every effort has been made to ensure accuracy floor specialist errors may have been included. Imaging studies, laboratory and physical exam results were discussed and reviewed in detail. No major barriers to patient understanding were identified. An opportunity to ask questions regarding the treatment plan was provided. All questions were answered. The patient expressed understanding and agreement with the above treatment plan. The patient is aware they should contact our office by phone for worsening of their current condition or the appearance of new urologic symptoms. Compliance is encouraged with any medications and followup testing that is ordered. It is a privilege to participate in the urologic care of your patient. If you have any questions or concerns regarding treatment for the above conditions, or other urologic issues, please do not hesitate to contact me. The office telephone contact is [phone]. Sincerely, Dr Gigi Gregory MD, [facility] - Urology Compassionate Specialist Care for the Genitourinary System Coding Level of Care Code Est Pt Level 3 (29312) Complex EM visit Add On G2211 Diagnoses Erectile dysfunction N52.9 Renal calculi N20.0
== END 2025-06-10 16:51 | disposition home or self-care (01) ==
LOC: HO.HUSH 15:31
PROVIDERS: PCP Internal Medicine; Visit Provider Urology
DX: N52.9 Male erectile dysfunction, unspecified (principal); N20.0 Calculus of kidney
CPT/HCPCS: 99213

== ENCOUNTER 2025-08-03 16:48 | Outpatient (AMB) | payer BC, SELFPAY ==
--- NOTE | 2025-08-03 16:50 | MHC.PC.OV ---
Vital Signs 08/03/25 16:51 Height 5 ft 11 in Weight 248 lb BMI 34.6 BP 130/78 Blood Pressure Location Lt brachial Position Sitting Pulse 81 Pulse Source Pulse Oximeter Pulse Oximetry (%) 99 Oxygen Delivery Method Room Air Intake Visit Reasons: f/u DM and smoking Allergies bee pollen (BEE STINGS) Allergy (Unknown, Verified 08/03/25 16:51) SWELLING WASPS Allergy (Unknown, Uncoded 08/03/25 16:51) SWELLING Medication List - Last Reconciled 08/03/25 by Beatris Hsieh MD albuterol sulfate 2.5 mg inhalation Q4-6H PRN albuterol sulfate 90 mcg/actuation 1 - 2 puffs PO Q4H PRN blood sugar diagnostic (Contour Next Test Strips) As directed- BID blood-glucose meter (Contour Next Gen Meter kit) As directed bupropion HCl (smoking deter) 150 mg PO BID 90 days citalopram 40 mg PO DAILY epinephrine (EpiPen 2-Joni) 0.3 mg (0.3 mL) IM Q4H PRN glipizide 5 mg PO BID 30 days lancets (OneTouch Delica Plus Lancet) As directed; BID lisinopril 5 mg PO DAILY 90 days pioglitazone 15 mg PO DAILY semaglutide (Ozempic) 2 mg (0.75 mL) subcut QWEEK simvastatin 20 mg PO QPM tadalafil 20 mg PO DAILY Tobacco use date assessed: 01/13/25 Dental Screening Dental Screen Date: 01/13/25 [facility] Medical History (Updated 08/03/25 @ 17:01 by Beatris Hsieh MD) Erectile dysfunction Right groin pain Right groin pain Gastroenteritis Colon cancer screening Epidermal cyst Diabetic polyneuropathy associated with type 2 diabetes mellitus Diabetic nephropathy associated with type 2 diabetes mellitus Renal calculi Diverticulitis Irritable bowel syndrome Fatty liver GERD (gastroesophageal reflux disease) Carpal tunnel syndrome Obesity (BMI 30-39.9) Hypertension Asthma Hypercholesterolemia Vitamin D deficiency Type 2 diabetes mellitus with hyperglycemia Surgical History History of cataract surgery History of vasectomy History of arthroscopy of left knee History of breast mammoplasty Family History Father Skin cancer Mother Breast cancer Mouth cancer Hypertension Maternal Aunt Lung cancer Brother In good health Son In good health Son In good health Daughter In good health Maternal Grandfather Myocardial infarct Social History Housing: House Alcohol intake: current Alcohol intake frequency: a few times a month Patient Tobacco Use Status: Current someday Tobacco user Tobacco use type: Cigarette Cigarette Packs Per Day: 1 Cigarettes Per Day: 12 e-Cigarette/Vaping Use: Never Used Second Hand Smoke Exposure: Yes service: No Current occupational status: employed Current occupation: [employer] Current occupational exposures/hazards: No Cognitive needs: No Hearing needs: No Vision needs: Yes Questionnaire PHQ-9 Over the last 2 weeks, how often have you been bothered by any of the following problems? 1. Little interest or pleasure in doing things: several days 2. Feeling down, depressed, or hopeless: not at all 3. Trouble falling or staying asleep, or sleeping too much: not at all 4. Feeling tired or having little energy: nearly every day 5. Poor appetite or overeating: several days 6. Feeling bad about yourself - or that you are a failure or have let yourself or your family down: not at all 7. Trouble concentrating on things, such as reading the newspaper or watching television: not at all 8. Moving or speaking so slowly that other people could have noticed. Or the opposite - being so fidgety or restless that you have been moving around a lot more than usual: nearly every day 9. Thoughts that you would be better off or of hurting yourself in some way: not at all Total score: 8 Depression Screening Interpretation: Positive Depression Screening Done: Yes Source: Developed by Drs. Rudy Borrero, Carlotta Gaxiola, Rohan Jenkins and colleagues, with an educational tracee from [employer]. Thrive Questionnaire Date Thrive assessed: 07/27/25 I am a: Patient What is your living situation today?: I have a steady place to live Within the past 12 months, did the food you bought not last and you didn't have the money to get more?: Often true Within the past 12 months, did you worry whether your food would run out before you got money to buy more?: Often true Do you have trouble paying for medicines?: Yes Do you have trouble getting transportation to medical appointments?: No Do you have trouble paying your heating and electricity bill?: Yes Do you have trouble taking care of your child, family member or friend?: No Do you have trouble with day-to-day activities such as bathing, preparing meals, shopping, managing finances, etc.?: Yes Are you currently unemployed and looking for a job?: No Are you interested in more education?: No Please select the resources that you would like help with: None Currently or been in a relationship where the following occur: No concerns reported THRIVE Score: 3 AUDIT C Alcohol Use Questionnaire (AUDIT-C) 1. How often do you have a drink containing alcohol?: Monthly or less 2. How many drinks containing alcohol do you have on a typical day when you are drinking?: 1 or 2 3. How often do you have six or more drinks on one occasion?: Never Total Score: 1 STORMY-7 AMB Questionnaire STORMY-7 Date STORMY - 7 assessed: 08/03/25 Feeling nervous, anxious, or on edge: 1 = Several days Not being able to stop or control worryin = Several days Worrying too much about different things: 1 = Several days Trouble relaxin = Several days Being so restless that it is hard to sit still: 1 = Several days Becoming easily annoyed or irritable: 0 = Not at all Feeling afraid as if something awful might happen: 0 = Not at all Total STORMY-7 score (0-4 normal; 5-9 mild; 10-14 moderate; 15-21 severe): 5 Source: Developed by Drs. Rudy Borrero, Carlotta Gaxiola, Rohan Jenkins and colleagues, with an educational tracee from [employer]. STORMY-7 Assessment Billing STORMY-7 Assessment Tool: STORMY-7 Assessment 69858 Physical exam (Primary Care) Vital Signs: Last Vital Signs Pulse 81 08/03/25 16:51 BP 130/78 08/03/25 16:51 Pulse Ox 99 08/03/25 16:51 Oxygen Delivery Method Room Air 08/03/25 16:51 BMI result Body Mass Index 34.6 Tobacco/Smoking Status: Tobacco use Status Tobacco use date assessed 01/13/25 08/03/25 16:52 Patient Tobacco Use Status Current someday Tobacco 08/03/25 16:52 Tobacco use type Cigarette 08/03/25 16:52 e-Cigarette/Vaping Use Never Used 08/03/25 16:52 PHQ-9: PHQ-9 Score PHQ-9: Total score 8 08/03/25 17:07 Depression Screening Interpretation: Positive Thrive Assessment: Date of Thrive Assessment Date Thrive assessed 07/27/25 08/03/25 16:52 Currently or been in a relationship where the following occur: No concerns reported Const General: alert; No acute distress Eyes Conjunctivae: conjunctivae normal Resp Auscultation: clear to auscultation bilaterally Cardio Rate: regular rate Rhythm: regular rhythm GI Inspection: Yes normal to inspection Extrem General: Yes normal to inspection and No edema Results AMB Hemoglobin A1c AMB Hemoglobin A1c 8.7 % Last Edit by Margarette Denise CMA on 08/03/25 17:07 Results Reviewed Results Reviewed: Laboratory Last Values Hgb A1c (Clinic) 8.7 % (4.0-6.0) H 08/03/25 16:52 Coding Level of Care Code Est Pt Level 4 (70820) Complex EM visit Add On G2211 Diagnoses Type 2 diabetes mellitus with hyperglycemia, with long-term current use of insulin E11.65; Z79.4 Diabetes mellitus chcf insulin use: with long chain quiller tender use Essential hypertension I10 Hypertension type: essential hypertension Hypercholesterolemia E78.00 Generalized anxiety disorder F41.1 Erectile dysfunction associated with type 2 diabetes mellitus E11.69; N52.1 Osteoarthritis of right hip M16.11 Additional Codes STORMY-7 Assessment Billing - STORMY-7 Assessment Tool: STORMY-7 Assessment 48275 ([id number]) Assessment & Plan Assessment & Plan (1) Type 2 diabetes mellitus with hyperglycemia: Comment: Dr. Nation Code(s): E11.65 - Type 2 diabetes mellitus with hyperglycemia Category: Medical Qualifiers: Diabetes mellitus long chain quiller tender insulin use: with long chain quiller tender use Qualified Code(s): E11.65 - Type 2 diabetes mellitus with hyperglycemia; Z79.4 - snf (current) use of insulin Plan: Decrease the amount of carbohydrate intake, pasta, bread, rice and potatoes are all sugar and that is aside from all the sweet stuff, remember that fruits are good but they are Sweet also. Hemoglobin A1c goal of less than 6.5. Patient is on glipizide 5 mg twice a day pioglitazone 50 mg once a day Ozempic at 2 mg once a week (2) Hypertension: Code(s): I10 - Essential (primary) hypertension Category: Medical Qualifiers: Hypertension type: essential hypertension Qualified Code(s): I10 - Essential (primary) hypertension Plan: Continue with blood pressure medication. Decrease salt intake and exercise on lisinopril 5 mg once a day (3) Hypercholesterolemia: Code(s): E78.00 - Pure hypercholesterolemia, unspecified Category: Medical Plan: Avoid fried foods, chicken skin, eggs, butter margarine, pastries and meat. Be it pork or beef they have a lot of cholesterol LDL goal of less than 130 and triglyceride of less than 150. On simvastatin 20 mg once a day (4) Generalized anxiety disorder: Comment: [facility] Yash genevieve done 06/2024 Code(s): F41.1 - Generalized anxiety disorder Category: Medical Plan: Continue with citalopram (5) Erectile dysfunction associated with type 2 diabetes mellitus: Code(s): E11.69 - Type 2 diabetes mellitus with other specified complication; N52.1 - Erectile dysfunction due to diseases classified elsewhere Category: Medical Plan: Patient has been followed up by Urology and has been placed on tadalafil (6) Osteoarthritis of right hip: Code(s): M16.11 - Unilateral primary osteoarthritis, right hip Category: Medical Plan History of Present Illness The patient is a 54-year-old male presenting for a follow-up visit to manage multiple chronic conditions including uncontrolled diabetes mellitus, hypertension, hypercholesterolemia, and asthma. The patient has a history of obesity and has been struggling with weight management despite losing approximately 60 pounds since his initial diagnosis of diabetes mellitus. He reports frustration with his current weight of 248 pounds and the impact of his weight on his diabetes management. The patient's diabetes mellitus remains uncontrolled with a recent hemoglobin A1c of 10.9%. He is currently on glipizide, pioglitazone, and Ozempic for diabetes management, with recent adjustments to increase pioglitazone dosage. The patient expresses difficulty in maintaining consistent blood glucose monitoring due to issues with his testing equipment. The patient has a history of hypertension, currently managed with lisinopril. He also has hypercholesterolemia, with an LDL goal of less than 130 mg/dL, managed with simvastatin. The patient reports generalized anxiety disorder, for which he is taking citalopram. The patient has a history of tubular adenoma of the colon, identified in December 2022. The patient reports chronic pain in his back, knees, feet, and hips, attributed to osteoarthritis, which significantly impacts his daily activities and quality of life. He describes his work as physically demanding, contributing to his pain and fatigue. The patient has been advised to try tramadol for pain management. 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 - Substance Use: The patient is a smoker. - Weight Management: The patient has lost approximately 60 pounds since his initial diagnosis of diabetes mellitus but continues to struggle with weight management. Review of Systems - Musculoskeletal: Reports chronic pain in back, knees, feet, and hips. - Endocrine: Reports difficulty in maintaining consistent blood glucose monitoring. - Psychiatric: Reports frustration and anxiety related to chronic conditions and pain. Physical Exam Results - Labs: Hemoglobin A1c 10.9% (December) - Labs: Elevated triglycerides at 213 mg/dL Plan Patient was informed and verbally consented to the use of an ambient scribe for clinic note documentation during this visit. 1. Uncontrolled Diabetes Mellitus The patient's diabetes mellitus remains uncontrolled with a hemoglobin A1c of 10.9%. Current management includes glipizide, pioglitazone, and Ozempic, with a recent increase in pioglitazone dosage to improve glycemic control. The patient is advised to improve blood glucose monitoring consistency and consider further adjustments to his medication regimen if necessary. 2. Hypertension The patient's hypertension is managed with lisinopril, and blood pressure goals are being monitored. 3. Hypercholesterolemia The patient is on simvastatin with an LDL goal of less than 130 mg/dL and triglyceride goal of less than 150 mg/dL. 4. Generalized Anxiety Disorder The patient is currently taking citalopram for anxiety management. 5. Osteoarthritis The patient reports chronic pain due to osteoarthritis, impacting his daily activities. Tramadol has been prescribed to manage pain symptoms. Discussion Notes During the visit, we discussed the management of the patient's uncontrolled diabetes mellitus, including the recent increase in pioglitazone dosage and the importance of consistent blood glucose monitoring. We also reviewed the patient's hypertension and hypercholesterolemia management plans, emphasizing adherence to lisinopril and simvastatin. For osteoarthritis-related pain, tramadol was recommended as a non-narcotic option to alleviate symptoms. Patient Instructions - Continue taking glipizide, pioglitazone, and Ozempic as prescribed. - Monitor blood glucose levels consistently and report any issues with testing equipment. - Take lisinopril and simvastatin as directed to manage hypertension and cholesterol levels. - Use tramadol for pain management as prescribed, taking it with food at night. Orders: Orders Comprehensive Met. Panel Today E11.65 - Type 2 diabetes mellitus with hyperglycemia, Z79.4 - snf (current) use of insulin Free T4 (Free Thyroxine) Today E11.65 - Type 2 diabetes mellitus with hyperglycemia, Z79.4 - intermediate card tender (current) use of insulin Hemoglobin A1c Today E11.65 - Type 2 diabetes mellitus with hyperglycemia, Z79.4 - snf (current) use of insulin Lipid Panel Today E11.65 - Type 2 diabetes mellitus with hyperglycemia, E78.00 - Pure hypercholesterolemia, unspecified, Z79.4 - intermediate card tender (current) use of insulin Creatinine Urine Today E11.65 - Type 2 diabetes mellitus with hyperglycemia, Z79.4 - snf (current) use of insulin AMB Hemoglobin A1c Today Z13.9 - Encounter for screening, unspecified Complete Blood Count Auto Diff Today E11.65 - Type 2 diabetes mellitus with hyperglycemia, Z79.4 - intermediate card tender (current) use of insulin Thyroid Stimulating Hormone Today E11.65 - Type 2 diabetes mellitus with hyperglycemia, Z79.4 - intermediate card tender (current) use of insulin Vitamin B12 and Folate Today E11.65 - Type 2 diabetes mellitus with hyperglycemia, Z79.4 - intermediate card tender (current) use of insulin Prostate Specific Antigen Scr Today E11.65 - Type 2 diabetes mellitus with hyperglycemia, Z79.4 - intermediate card tender (current) use of insulin Microalbumin, Random (w Creat) Today E11.65 - Type 2 diabetes mellitus with hyperglycemia, Z79.4 - intermediate card tender (current) use of insulin Medications: New semaglutide 2.4 mg (0.3 mL) subcut .once a week 1.2 mL 3RF 30 days E66.9 - Obesity, unspecified tramadol 50 mg PO DAILY 30 tabs 0RF M16.11 - Unilateral primary osteoarthritis, right hip Changed From pioglitazone 15 mg PO DAILY 90 tabs 2RF E11.65 - Type 2 diabetes mellitus with hyperglycemia, Z79.4 - intermediate card tender (current) use of insulin To pioglitazone 30 mg PO DAILY 90 tabs 2RF E11.65 - Type 2 diabetes mellitus with hyperglycemia, Z79.4 - intermediate card tender (current) use of insulin Refilled pioglitazone 15 mg PO DAILY 90 tabs 2RF E11.65 - Type 2 diabetes mellitus with hyperglycemia, Z79.4 - snf (current) use of insulin Discontinued semaglutide (Ozempic) Discontinued Reason: Doctor's Order 2 mg (0.75 mL) subcut QWEEK 3 mL 0RF
[2025-08-03 16:51] VITALS: BP 130/78; PULSE 81; O2SAT 99; BMI 34.6
--- OUTSIDE RECORDS SUMMARY | 2025-08-03 18:50 | XMS_ITS | Patient Health Record ---
Author Organization [facility] Address [address] [place] [address] Care Team Providers Care Human Services Program Specialist Name Role Phone Beatris Hsieh Primary Care Provider Viet Friedman Unavailable [phone] Allergies No Known Allergies Reason For Referral [...] Status Risk Notes Problem Plantar fascial fibromatosis (46529418) Plantar fascial fibromatosis (M72.2) Active confirmed Problem Type II diabetes mellitus without complication (179291949) Type 2 diabetes mellitus without complication (E11.9) Active confirmed Plan Of Treatment Pending Test Test Name Order Date X ray : Foot, left 3V 06/23/2022 X ray : Foot, right 3V 06/23/2022 Insurance Providers Payer Name Payer Address Payer Phone Subscriber Number Group Number Insured Name Patient Relationship to Insured Coverage Start Date [facility]age End Date [facility] [address] [place] [address] [phone] [id number] Bob Knowles Self - patient is the insured Medical (General) History Medical History History ICD Code asthma type II diabetes Diverticulosis CAD Surgical History Surgery Date(Month/Year)
--- OUTSIDE RECORDS SUMMARY | 2025-08-03 18:50 | XMS_ITS | Patient Health Record ---
Author Organization [facility] Address [address] [place] [address] Care Team Providers Care Lithoduplicator Operator Name Role Phone Beatris Hsieh MD Primary Care Provider Harris Carpenter Jr Unavailable [phone] Allergies Allergen (clinical drug ingredient) Drug/Non Drug [...] Problem Status W/U Status Risk Notes Problem [id number] Colon cancer screening (Z12.11) Active confirmed Problem [id number] Gastroesophageal reflux disease without esophagitis (K21.9) Active confirmed Plan Of Treatment Future Test Test Name Order Date COLONOSCOPY 12/07/2022 Insurance Providers Payer Name Payer Address Payer Phone Subscriber Number Group Number Insured Name Patient Relationship to Insured Coverage Start Date Coverage End Date [facility] [address] [place] [address] [phone] [id number] TEN PEREIRA Self - patient is the insured Medical (General) History Medical History History ICD Code 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
== END 2025-08-03 17:24 | disposition home or self-care (01) ==
LOC: HO.HMCH 16:49
PROVIDERS: PCP Internal Medicine; Visit Provider Internal Medicine
DX: E11.65 Type 2 diabetes mellitus with hyperglycemia (principal); Z79.4 Long term (current) use of insulin; E11.69 Type 2 diabetes mellitus with other specified complication; I10 Essential (primary) hypertension; E78.00 Pure hypercholesterolemia, unspecified; F41.1 Generalized anxiety disorder; N52.1 Erectile dysfunction due to diseases classified elsewhere; M16.11 Unilateral primary osteoarthritis, right hip

== ENCOUNTER → 2025-08-03 16:48 | Outpatient (BNVA) | payer BC, SELFPAY | PROVIDERS: PCP Internal Medicine; Visit Provider Internal Medicine | DX: E11.65 Type 2 diabetes mellitus with hyperglycemia (principal); E11.69 Type 2 diabetes mellitus with other specified complication; I10 Essential (primary) hypertension; E78.00 Pure hypercholesterolemia, unspecified; F41.1 Generalized anxiety disorder; N52.1 Erectile dysfunction due to diseases classified elsewhere; M16.11 Unilateral primary osteoarthritis, right hip; Z79.4 Long term (current) use of insulin | CPT/HCPCS: 83036; 96127 ==

== ENCOUNTER 2025-10-15 06:29 | Outpatient (REF) | payer BC, SELFPAY ==
--- OUTSIDE RECORDS SUMMARY | 2025-10-15 06:36 | XMS_ITS | Patient Health Record ---
Author Organization [facility] Address [address] [place] [address] Care Team Providers Care Casing Finisher And Stuffer Name Role Phone Beatris Hsieh Primary Care Provider Viet Friedman Unavailable [phone] Allergies No Known Allergies Reason For Referral [...] Status Risk Notes Problem Plantar fascial fibromatosis (19332709) Plantar fascial fibromatosis (M72.2) Active confirmed Problem Type II diabetes mellitus without complication (544329302) Type 2 diabetes mellitus without complication (E11.9) Active confirmed Plan Of Treatment Pending Test Test Name Order Date X ray : Foot, left 3V 06/23/2022 X ray : Foot, right 3V 06/23/2022 Insurance Providers Payer Name Payer Address Payer Phone Subscriber Number Group Number Insured Name Patient Relationship to Insured Coverage Start Date [facility]age End Date [facility] [address] [place] [address] [phone] [id number] Bob Knowles Self - patient is the insured Medical (General) History Medical History History ICD Code asthma type II diabetes Diverticulosis CAD Surgical History Surgery Date(Month/Year)
--- OUTSIDE RECORDS SUMMARY | 2025-10-15 06:36 | XMS_ITS | Patient Health Record ---
Author Organization [facility] Address [address] [place] [id number] Care Team Providers Care Green Prize Packer Name Role Phone Beatris Hsieh MD Primary Care Provider Harris Carpenter Jr Unavailable Allergies Allergen (clinical drug ingredient) Drug/Non Drug Allergy documented on EMR Reaction Allergy Type Onset Date Status Wasp Venom Unknown Drug Allergy Active Bee Sting Unknown Allergy Active Reason For Referral No Information Medications Medication SIG (Take, Route, Frequency, Duration) Notes Start Date End Date Status Tadalafil 10 MG Tablet TAKE ONE TABLET B Y MOUTH DAILY FOR SEXUAL ACTIVITY Oral; Duration: 90 Active Synjardy XR 12.5-1000 MG Tablet Extended Release 24 Hour Oral; Duration: 30 Active Simvastatin 20 MG Tablet Oral; Duration: 30 Active MiraLax (colon prep) 17 GM/SCOOP Powder mixed with Gatorade or Crystal Light Orally begin at 5:00 p.m. the day before the procedure; Duration: 1 day 12/07/2022 Active Citalopram Hydrobromide 40 MG Tablet TAKE 1 TABLET BY MOUTH EVERY DAY Oral; Duration: 30 Active Lisinopril 5 MG Tablet TAKE 1 TABLET BY MOUTH EVERY DAY FOR 90 DAYS Oral; Duration: 30 Active Trulicity 3 MG/0.5ML Solution Pen-injector Subcutaneous; Duration: 28 Active Immunizations Vaccine Route Administration Date Status Comme nts Influenza Unknown 09/26/2022 Administered Social History Tobacco Use: Social History Observation Description Date Details (start date - stop date) Current Smoker NA - NA Social History Drugs/Alcohol: Social Info Question Answer Notes Alcohol Screen Did you have a drink containing alcohol in the past year? Yes How often did you have a drink containing alcohol in the past year? Monthly or less (1 point) How many drinks did you have on a typical day when you were drinking in the past year? 1 or 2 drinks (0 point) How often did you have 6 or more drinks on one occasion in the past year? Never (0 point) Points 1 Interpretation Negative Tobacco Use: Social Info Question Answer Notes Tobacco Use/Smoking Patient is a current smoker How often do you smoke cigarettes? some days, but not every day How many cigarettes a day do you smoke? 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 Problems Problem Type SNOMED Code ICD Code Onset Dates Problem Status W/U Status Risk Notes Problem Colon cancer screening (937167320) Colon cancer screening (Z12.11) Active confirmed Problem Gastroesophageal reflux disease without esophagitis (806559545) Gastroesophageal reflux disease without esophagitis (K21.9) Active confirmed Plan Of Treatment Future Test Test Name Order Date COLONOSCOPY 12/07/2022 Insurance Providers Payer Name Payer Address Payer Phone Subscriber Number Group Number Insured Name Patient Relationship to Insured Coverage Start Date Coverage End Date [facility] [address] [place] [address] [phone] [id number] TEN PEREIRA Self - patient is the insured Medical (General) History Medical History History ICD Code 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
[2025-10-15 10:15] LABS: MANUAL DIFF FLAG NO
[2025-10-15 10:24] LABS: Hematocrit 45.0 % (42.0-52.0); Hemoglobin 15.3 g/dl (14.0-18.0); Imm Gran Abs Auto 0.02 X10*3/uL (0.00-0.03); Imm Gran Pct Auto 0.4 % (0.0-0.4); Lymphocytes Absolute Auto 1.8 X10*3/uL (1.2-4.9); Mean Corpuscular HGB Conc 34.0 g/dl (31.0-36.0); Mean Corpuscular Hemoglobin 30.7 pg (27.0-33.0); Mean Corpuscular Volume 90.4 fL (80.0-98.0); NRBC Abs Auto 0.000 X10*3/uL (0.0-0.012); NRBC Pct Auto 0.0 /100WBC (0.0-0.2); Platelet Count 196 X10*3/uL (160-400); Red Blood Count 4.98 X10*6/uL (4.60-5.80); White Blood Count 5.0 X10*3/uL (4.8-10.8)
[2025-10-15 10:54] LABS: Alanine Aminotransferase 46 U/L (0-40); Albumin Level 4.3 g/dL (3.5-5.0); Alkaline Phosphatase 61 U/L (39-117); Anion Gap 12 (12-20); Aspartate Amino Transferase 33 U/L (5-37); Blood Urea Nitrogen 11 mg/dL (9-16); Calcium 8.8 mg/dL (8.4-10.2); Carbon Dioxide 25 mmol/L (22-29); Chloride 104 mmol/L (96-108); Cholesterol 156 mg/dL (<200); Estimated Glomerular Filt Rate > 60; HDL Cholesterol 38 mg/dL (>40); Potassium 3.8 mmol/L (3.3-5.1); Sodium 137 mmol/L (135-145); Total Protein 6.5 g/dL (6.5-8.0); Triglycerides 136 mg/dL (<150)
[2025-10-15 11:15] LABS: Free T4 (Free Thyroxine) 0.93 ng/dL (0.71-1.85); Thyroid Stimulating Hormone 2.07 uIU/mL (0.32-4.0)
[2025-10-15 11:18] LABS: Folate 12.6 ng/mL (> or = 4.0); Vitamin B12 462 pg/mL (200-900)
[2025-10-15 11:26] LABS: Microalbum/Creatinine Ratio Ur 9.8 ug/mg cr (<30)
== END 2025-10-15 06:30 | disposition home or self-care (01) ==
LOC: HO.HMGCLDS 06:29
PROVIDERS: PCP Internal Medicine; Visit Provider Internal Medicine
DX: Z12.5 Encounter for screening for malignant neoplasm of prostate (principal); E11.65 Type 2 diabetes mellitus with hyperglycemia; Z79.4 Long term (current) use of insulin; E78.00 Pure hypercholesterolemia, unspecified
CPT/HCPCS: 36415; 80053; 80061; 82043; 82570; 82607; 82746; 83036; 84153; 84439; 84443; 85025

== ENCOUNTER 2025-10-16 08:49 | Outpatient (AMB) | payer BC, SELFPAY ==
[2025-10-16 08:52] VITALS: BP 136/72; PULSE 80; TEMP 36.3; O2SAT 96; BMI 35.3
--- NOTE | 2025-10-16 08:52 | A.OFFPC_ITS ---
Vital Signs 10/16/25 08:52 Height 5 ft 11 in Weight 253 lb BMI 35.3 BP 136/72 Blood Pressure Location Lt brachial Position Sitting Pulse 80 Pulse Source Pulse Oximeter Temp 97.3 F Temp Source Temporal Artery Scan Pulse Oximetry (%) 96 Oxygen Delivery Method Room Air Intake Visit Reasons: Annual Exam Allergies bee pollen (BEE STINGS) Allergy (Unknown, Verified 10/16/25 08:55) SWELLING WASPS Allergy (Unknown, Uncoded 10/16/25 08:55) SWELLING Medication List - Last Reconciled 10/16/25 by Beatris Hsieh MD albuterol sulfate 2.5 mg inhalation Q4-6H PRN albuterol sulfate 90 mcg/actuation 1 - 2 puffs PO Q4H PRN blood sugar diagnostic (Contour Next Test Strips) As directed- BID blood-glucose meter (Contour Next Gen Meter kit) As directed bupropion HCl (smoking deter) 150 mg PO BID 90 days citalopram 40 mg PO DAILY epinephrine (EpiPen 2-Joni) 0.3 mg (0.3 mL) IM Q4H PRN gabapentin 300 mg PO BEDTIME glipizide 5 mg PO BID 30 days lancets (OneTouch Delica Plus Lancet) As directed; BID lisinopril 5 mg PO DAILY 90 days pioglitazone 30 mg PO DAILY semaglutide (Ozempic) 2 mg (0.75 mL) subcut QWEEK simvastatin 20 mg PO QPM tadalafil 20 mg PO DAILY tramadol 50 mg PO DAILY Tobacco use date assessed: 10/16/25 Dental Screening Dental Screen Date: 10/16/25 Did you have a dental visit in the last 12 months?: Yes Did you have a dental problem in the last 6 months where you did not have access to dental care?: No Was dental information given to patient?: Patient has dentist HPI HPI Comments History of Present Illness Details History of Present Illness The patient is a 54 year old individual presenting for a physical exam and management of multiple chronic conditions, including uncontrolled diabetes mellitus, obesity, hypercholesterolemia, hypertension, asthma, carpal tunnel syndrome, nephrolithiasis, and generalized anxiety disorder. No new diagnoses or surgeries have occurred since the last visit. The patient's diabetes is uncontrolled, with a recent hemoglobin A1c of 12.2%, which has increased from a previous 8.7%. This may be partly attributed to having no injectable medication for at least four weeks. The patient reports being a brittle diabetic and difficult to control. Current oral medications include glipizide 5 mg twice a day and pioglitazone. The patient is also on weekly Ozempic. The patient reports significant pain and stiffness in the left knee and hips, which makes work and activities of daily living increasingly difficult. The patient experiences difficulty getting out of bed, putting on socks, and getting in and out of the shower. There is a history of having a cyst on the back of the knee drained and the knee shaved down many years ago. Previous x-rays of the hip have shown [id number] changes. Other medical history includes hypertension treated with lisinopril, hypercholesterolemia treated with simvastatin, and generalized anxiety disorder managed with Wellbutrin and citalopram. The patient had a colonoscopy in December 2022 which found a tubular adenoma. The patient has an albuterol inhaler for asthma but reports not using it recently. Recently, the patient experienced an episode of hand swelling and pruritus after wearing rubber gloves, which resolved with antibiotics. The patient is a current smoker, using about 7 cigarettes per day, reduced from 11. The patient's father had a history of skin cancer. The last eye exam was a couple of weeks ago and was normal. Health Maintenance The patient's tetanus immunization is out of date, with the last one received in 2014. The patient opted to defer the vaccination to a future date. Given the finding of multiple moles on the back and a family history of skin cancer, a consultation with a licensed psychologist was recommended. Social History - Tobacco Use: The patient is a current smoker, consuming approximately 7 cigarettes per day, which is a reduction from a previous 11 per day. - Employment: The patient works in [employer], a job that involves manual labor such as climbing ladders and frequent kneeling. - Functional Status: The patient reports significant limitations in daily activities due to hip and knee pain, including difficulty getting out of bed, putting on socks, and getting into the shower. - Nutritional Intake: The patient acknow ledges not being a healthy eater but denies 'pigging out.' Results - Hemoglobin A1c: 12.2% (previously 8.7% ). - LDL cholesterol: 91 mg/dL. - Liver function tests: Mildly elevated (chronic). - Complete blood count: Normal. - Electrolytes and renal function: Pema l. - Folic acid, Vitamin B12, and thyroid s tudies: Normal. - PSA: Normal. - Urinalysis: No proteinuria. - Colonoscopy (December 2022): Tubular a denoma. [facility] Medical History Erectile dysfunction Right groin pain Right groin pain Gastroenteritis Colon cancer screening Epidermal cyst Diabetic polyneuropathy associated with type 2 diabetes mellitus Diabetic nephropathy associated with type 2 diabetes mellitus Renal calculi Diverticulitis Irritable bowel syndrome Fatty liver GERD (gastroesophageal reflux disease) Carpal tunnel syndrome Obesity (BMI 30-39.9) Hypertension Asthma Hypercholesterolemia Vitamin D deficiency Type 2 diabetes mellitus with hyperglycemia Surgical History History of cataract surgery History of vasectomy History of arthroscopy of left knee History of breast mammoplasty Family History Father Skin cancer Mother Breast cancer Mouth cancer Hypertension Maternal Aunt Lung cancer Brother In good health Son In good health Son In good health Daughter In good health Maternal Grandfather Myocardial infarct Social History Housing: House Alcohol intake: current Alcohol intake frequency: a few times a month Patient Tobacco Use Status: Current someday Tobacco user Tobacco use type: Cigarette Cigarette Packs Per Day: 1 Cigarettes Per Day: 7 e-Cigarette/Vaping Use: Never Used Second Hand Smoke Exposure: Yes service: No Current occupational status: employed 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 1. Little interest or pleasure in doing things: several days 2. Feeling down, depressed, or hopeless: not at all 3. Trouble falling or staying asleep, or sleeping too much: not at all 4. Feeling tired or having little energy: nearly every day 5. Poor appetite or overeating: several days 6. Feeling bad about yourself - or that you are a failure or have let yourself or your family down: not at all 7. Trouble concentrating on things, such as reading the newspaper or watching t elevision: not at all 8. Moving or speaking so slowly that other people could have noticed. Or the opposite - being so fidgety or restless that you have been moving around a lot more than usual: nearly every day 9. Thoughts that you would be better off or of hurting yourself in some way: not at all Total score: 8 Depression Screening Interpretation: Positive Depression Screening Done: Yes Source: Developed by Drs. Rudy Borrero, Carlotta Gaxiola, Rohan Jenkins and colleagues, with an educational tracee from [employer]. Thrive Questionnaire Date Thrive assessed: 07/27/25 I am a: Patient What is your living situation today?: I have a steady place to live Within the past 12 months, did the food you bought not last and you didn't have the money to get more?: Often true Within the past 12 months, did you worry whether your food would run out before you got money to buy more?: Often true Do you have trouble paying for medicines?: Yes Do you have trouble getting transportation to medical appointments?: No Do you have trouble paying your heating and electricity bill?: Yes Do you have trouble taking care of your child, family member or friend?: No Do you have trouble with day-to-day activities such as bathing, preparing meals, shopping, managing finances, etc.?: Yes Are you currently unemployed and looking for a job?: No Are you interested in more education?: No Please select the resources that you would like help with: None Currently or been in a relationship where the following occur: No concerns reported THRIVE Score: 3 AUDIT C Alcohol Use Questionnaire (AUDIT-C) 1. How often do you have a drink containing alcohol?: Monthly or less 2. How many drinks containing alcohol do you have on a typical day when you are drinking?: 1 or 2 3. How often do you have six or more drinks on one occasion?: Never Total Score: 1 STORMY-7 AMB Questionnaire STORMY-7 Date STORMY - 7 assessed: 08/03/25 Feeling nervous, anxious, or on edge: 1 = Several days Not being able to stop or control worryin = Several days Worrying too much about different things: 1 = Several days Trouble relaxin = Several days Being so restless that it is hard to sit still: 1 = Several days Becoming easily annoyed or irritable: 0 = Not at all Feeling afraid as if something awful might happen: 0 = Not at all Total STORMY-7 score (0-4 normal; 5-9 mild; 10-14 moderate; 15-21 severe): 5 Source: Developed by Drs. Rudy Borrero, Carlotta Gaxiola, Rohan Jenkins and colleagues, with an educational tracee from [employer]. Review of Systems Narrative Review of Systems - Constitutional: Denies fevers. - Eyes: Denies any problems with the back of the eye per recent exam. - Respiratory: Denies waking up with shortness of breath. - Gastrointestinal: Reports good bowel movements. - Genitourinary: Reports a history of nocturia up to three times per night and urgency incontinence when not taking Ozempic, but states these symptoms are now resolved. Denies current nocturia. - Musculoskeletal: Reports significant stiffness and limited range of motion in the left knee. - Reports hip pain. - Reports pain is primarily from the waist down. - Integumentary: Reports having numerous moles on the back. - Recently experienced itching and swelling of one hand after wearing rubber gloves. - Allergic/Immunologic: No known drug allergies. Const Denies poor appetite and Denies weakness Eyes Denies no additional complaints ENT Reports Normal hearing present, Denies dizziness, Denies nasal congestion, Denies tinnitus and Denies sore throat Card Denies chest pain, Denies syncope, Denies rapid heart rate and Denies dyspnea Resp Denies cough and Denies dyspnea GI Denies change in stool character, Reports constipation, Denies diarrhea, Denies nausea and Denies vomiting Denies dysuria and Denies urinary frequency Neuro Reports Normal hearing present, Denies confusion, Denies dizziness, Denies syncope and Denies weakness Psych Denies confusion Physical exam (Primary Care) Vital Signs: Last Vital Signs Temp 97.3 F 10/16/25 08:52 Pulse 80 10/16/25 08:52 BP 136/72 10/16/25 08:52 Pulse Ox 96 10/16/25 08:52 Oxygen Delivery Method Room Air 10/16/25 08:52 BMI result Body Mass Index 35.3 Tobacco/Smoking Status: Tobacco use Status Tobacco use date assessed 10/16/25 10/16/25 08:58 Patient Tobacco Use Status Current someday Tobacco 10/16/25 08:58 Tobacco use type Cigarette 10/16/25 08:58 e-Cigarette/Vaping Use Never Used 10/16/25 08:58 PHQ-9: PHQ-9 Score PHQ-9: Total score 8 10/16/25 09:20 Depression Screening Interpretation: Positive Thrive Assessment: Date of Thrive Assessment Date Thrive assessed 07/27/25 10/16/25 08:58 Currently or been in a relationship where the following occur: No concerns reported Narrative Physical Exam General: Cooperative, healthy appearing, comfortable, no acute distress and well developed Orientation: Patient oriented x3 Limitations: Limited due to knee stiffness and difficulty with mobility Head: Normal to inspection Ears: Hearing grossly normal bilaterally, small white particles noted Nose: Normal external nose present Face and sinus: Normal facial exam Eyes: Appearance normal, both eyes and all related structures Neck: Normal visual inspection and Yes full ROM Respiratory: Normal respiratory effort and able to speak in complete sentences. Clear to auscultation bilaterally Cardiovascular: Regular rate and rhythm. Normal S1 and S2 GI: Normal to inspection. Soft to palpation and nontender Skin: No rashes or lesions noted, multiple moles observed on the back Neuro: Patient oriented x3 Extremities: Limited due to knee stiffness, difficulty bending left knee, and mobility issues. No hernias detected. Sensation intact in feet. Const General: alert and awake; No confusion Orientation/consciousness: No confusion HENMT Head: Yes normocephalic Ears: external ears normal and TM's normal bilaterally Face and sinus: Yes normal facial exam Mouth: moist mucous membranes Throat: Yes tonsils normal Eyes Conjunctivae: conjunctivae normal Pupils: Equal, round and reactive pupils present and Pupil accommodation reflex normal Direct Ophthalmoscopy: normal light reflex Neck Neck: No lymphadenopathy Thyroid: Thyroid normal Chest Chest palpation & inspection: normal inspection of the chest Resp Effort & Inspection: normal respiratory effort and no audible wheezes Auscultation: clear to auscultation bilaterally, no crackles, no wheezes and lung sounds not diminished Cardio Rate: regular rate Rhythm: regular rhythm Peripheral pulses: radial pulses present and dorsalis pedis present GI Palpation (GI): no masses Auscultation: normal bowel sounds and normoactive bowel sounds Rectal Exam - Male: Yes deferred Skin General skin exam: no rashes or lesions noted Rashes: no rashes Neuro General: deep tendon reflexes 2+ bilaterally and No confusion Cranial nerves: Yes Equal, round and reactive pupils present, Yes Midline tongue present, Yes Normal hearing present and Yes Ability to bilaterally elevate shoulders present Cognition (Neuro): normal cognition Gait exam (Neuro): Normal gait present Motor exam (neuro): 5/5 motor strength present throughout Deep tendon reflexes (DTR's): Right brachioradialis reflex intensity grade: 2+, Left brachioradialis reflex intensity grade: 2+, Right patellar reflex intensity grade: 2+ and Left patellar reflex intensity grade: 2+ Extrem General: No edema Coding Level of Care Code Est Pt Prev Care 40-64y(76789) Diagnoses Annual physical exam Z00.00 Tobacco use disorder F17.200 Type 2 diabetes mellitus with hyperglycemia, with long-term current use of insulin E11.65; Z79.4 Diabetes mellitus usp insulin use: with predatory animal exterminator use Obesity (BMI 30-39.9) E66.9 Hypercholesterolemia E78.00 Generalized anxiety disorder F41.1 GERD (gastroesophageal reflux disease) K21.9 Left knee pain M25.562 Assessment & Plan Assessment & Plan (1) Annual physical exam: Code(s): Z00.00 - Encounter for general adult medical examination without abnormal findings Category: Medical Plan: Patient is advised to eat healthy, keep well hydrated, keep active and have adequate sleep. (2) Tobacco use disorder: Code(s): F17.200 - Nicotine dependence, unspecified, uncomplicated Category: Medical Plan: Patient is strongly advised to stop smoking (3) Type 2 diabetes mellitus with hyperglycemia: Comment: Dr. Nation Code(s): E11.65 - Type 2 diabetes mellitus with hyperglycemia Category: Medical Qualifiers: Diabetes mellitus predatory animal exterminator insulin use: with predatory animal exterminator use Qualified Code(s): E11.65 - Type 2 diabetes mellitus with hyperglycemia; Z79.4 - group home (current) use of insulin Plan: Decrease the amount of carbohydrate intake, pasta, bread, rice and potatoes are all sugar and that is aside from all the sweet stuff, remember that fruits are good but they are Sweet also. Glipizide 5 mg twice a day pioglitazone 30 mg once a day Ozempic has been placed on 2 mg once a week (4) Obesity (BMI 30-39.9): Code(s): E66.9 - Obesity, unspecified Category: Medical Plan: Diet and exercise (5) Hypercholesterolemia: Code(s): E78.00 - Pure hypercholesterolemia, unspecified Category: Medical Plan: Avoid fried foods, chicken skin, eggs, butter margarine, pastries and meat. Be it pork or beef they have a lot of cholesterol LDL goal of less than 100 and triglyceride of less than 150 on simvastatin 20 mg once a day (6) Generalized anxiety disorder: Comment: [facility] Yash vallejo done 06/2024 Code(s): F41.1 - Generalized anxiety disorder Category: Medical Plan: Continue with counseling and therapy on citalopram 40 mg once a day (7) GERD (gastroesophageal reflux disease): Code(s): K21.9 - Gastro-esophageal reflux disease without esophagitis Category: Medical Plan: Avoid the foods that causes that usually spicy foods, tomato products, juices, coffee, soda and foods that your sensitive to. After eating do not lie down, allow 3-4 hours before in lie down. And keep the head of bed above 30 degrees to avoid the acid from going up. (8) Left knee pain: Code(s): M25.562 - Pain in left knee Category: Medical Plan Plan Patient was informed and verbally consented to the use of an ambient scribe for clinic note documentation during this visit. 1. Uncontrolled Type 2 Diabetes Mellitus The patient's hemoglobin A1c has risen to 12.2% from 8.7%, indicating significantly uncontrolled diabetes. This is considered difficult to manage, and a period of non-adherence to injectable medication may have contributed to the recent increase. After discussing the risk of weight gain, which is a concern for the patient, agreement was reached to start a long-acting insulin. The plan is to initiate a nightly insulin injection, starting at 10 units. The patient was instructed to self-monitor blood sugars and increase the nightly dose by 3 units every three days if all sugar levels remain above 150 mg/dL, continuing until a number is below 150 mg/dL, then staying at that dose. The patient will continue the current oral medications, glipizide and pioglitazone, as well as the weekly Ozempic injection. A referral to endocrinology was suggested, but the patient was hesitant. 2. Knee And Hip Pain The patient has significant joint pain, particularly in the left knee and hips, causing functional limitations. X-rays have previously shown [id number] changes in the hip. Topical Voltaren gel was prescribed to apply to affected joints up to four times daily to decrease swelling and pain. A prescription for tramadol was also provided at the patient's request. The patient was advised that it is good to stretch the joints but to avoid stretching to the point of pain. 3. Tobacco Use Disorder The patient is a current smoker, using 7 cigarettes per day, down from 11. The patient was strongly advised to quit smoking. Current medications include Wellbutrin (bupropion), which can also be used for smoking cessation. 4. Hypercholesterolemia The patient's cholesterol is well-controlled with an LDL of 91 mg/dL, meeting the goal of less than 100 mg/dL. The patient will continue the current dose of simvastatin. Discussion Notes I discussed at length the patient's severely uncontrolled diabetes, as evidenced by an A1c of 12.2%. I explained the necessity of starting insulin to gain better control and prevent long-term complications. The patient expressed significant concern about weight gain as a side effect of insulin. While acknowledging this risk, I emphasized that glycemic control is the immediate priority. We agreed to start a long-acting insulin nightly, beginning with 10 units, and I provided instructions for dose titration based on self-monitoring of blood glucose. For the patient's significant joint pain, I prescribed topical Voltaren gel to reduce inflammation and pain. I also renewed the prescription for tramadol. I advised the patient to engage in gentle stretching but not to the point of pain. We also discussed that the patient's tetanus shot is due, and the patient will schedule it for a later time. Finally, due to multiple moles and family history, I recommended scheduling an appointment with a licensed psychologist. Patient Instructions - It is very important to quit smoking, and you should continue your efforts to do so. - You will start a new insulin medication. This is a pen that you will use to give yourself one shot every night at bedtime. - Start with a dose of 10 units. - You need to check your blood sugar levels. - If all of your sugar numbers for three days are still above 150, you can increase your nightly insulin dose by 3 units (for example, from 10 to 13 units). - Continue this until at least one of your numbers is below 150, and then stay at that dose. - Continue taking your other pills for diabetes (glipizide, pioglitazone) and your weekly Ozempic shot as prescribed. - A prescription for Voltaren gel has been sent to your pharmacy. You can rub this on your painful joints (knees, hips, hands) 3 to 4 times a day to help with pain and swelling. - A prescription for Tramadol for pain has been refilled for you. - You are due for a tetanus shot. Please remember to schedule a visit to get this soon. - Because you have many moles and your father had skin cancer, it is recommended that you see a skin doctor (licensed psychologist) to have them checked. - Please let the office know which medications were in the two empty prescription bottles you mentioned, so we can confirm if you should still be taking them and provide refills if needed. Orders: Orders XR knee LT 2V Today M25.562 - Pain in left knee Medications: New insulin glargine (Lantus Solostar U-100 Insulin) 10 units (0.1 mL) subcut QPM 15 mL 3RF E11.65 - Type 2 diabetes mellitus with hyperglycemia, Z79.4 - group home (current) use of insulin pen needle, diabetic (1st Tier Unifine Pentips) As directed 100 ea 3RF E11.65 - Type 2 diabetes mellitus with hyperglycemia, Z79.4 - group home (current) use of insulin diclofenac sodium 1% (Voltaren Arthritis Pain) apply to single knee, ankle, foot; for foot includes sole/toes/top of foot 4 grams topical QID 200 grams 3RF M25.562 - Pain in left knee Refilled tramadol 50 mg PO DAILY 30 tabs 0RF M16.11 - Unilateral primary osteoarthritis, right hip
--- OUTSIDE RECORDS SUMMARY | 2025-10-16 08:54 | XMS_ITS | Patient Health Record ---
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 Name Role Phone Beatris Hsieh Primary Care Provider Viet Friedman Unavailable [phone] Allergies No Known Allergies Reason For Referral [...] Status Risk Notes Problem Plantar fascial fibromatosis (64768565) Plantar fascial fibromatosis (M72.2) Active confirmed Problem Type II diabetes mellitus without complication (625920351) Type 2 diabetes mellitus without complication (E11.9) Active confirmed Plan Of Treatment Pending Test Test Name Order Date X ray : Foot, left 3V 06/23/2022 X ray : Foot, right 3V 06/23/2022 Insurance Providers Payer Name Payer Address Payer Phone Subscriber Number Group Number Insured Name Patient Relationship to Insured Coverage Start Date [facility]age End Date [facility] [address] [place] [phone] [id number] Bob Knowles Self - patient is the insured Medical (General) History Medical History History ICD Code asthma type II diabetes Diverticulosis CAD Surgical History Surgery Date(Month/Year)
--- OUTSIDE RECORDS SUMMARY | 2025-10-16 08:54 | XMS_ITS | Patient Health Record ---
Author Organization [facility] Address [address] [place] [id number] Care Team Providers Care Speck Dyer Name Role Phone Beatris Hsieh MD Primary [...] Status Risk Notes Problem Colon cancer screening (089749353) Colon cancer screening (Z12.11) Active confirmed Problem Gastroesophageal reflux disease without esophagitis (045756048) Gastroesophageal reflux disease without esophagitis (K21.9) Active confirmed Plan Of Treatment Future Test Test Name Order Date COLONOSCOPY 12/07/2022 Insurance Providers Payer Name Payer Address Payer Phone Subscriber Number Group Number Insured Name Patient Relationship to Insured Coverage Start Date Coverage End Date [facility] [address] [place] [address] [phone] [id number] TEN PEREIRA Self - patient is the insured Medical (General) History Medical History History ICD Code 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
== END 2025-10-16 10:00 | disposition home or self-care (01) ==
LOC: HO.HMCH 08:50
PROVIDERS: PCP Internal Medicine; Visit Provider Internal Medicine
DX: Z00.00 Encounter for general adult medical examination without abnormal findings (principal); F17.200 Nicotine dependence, unspecified, uncomplicated; E11.65 Type 2 diabetes mellitus with hyperglycemia; Z79.4 Long term (current) use of insulin; E66.9 Obesity, unspecified; E78.00 Pure hypercholesterolemia, unspecified; F41.1 Generalized anxiety disorder; K21.9 Gastro-esophageal reflux disease without esophagitis; M25.562 Pain in left knee